=== PATIENT | female | born 1940 | race Caucasian/White ===

== ENCOUNTER 2018-11-28 11:32 | Emergency (ER) | payer MEDICARE, OTHER ==
[~2018-11-28] VITALS: Ht 154.9 cm; Wt 81.6 kg
[~2018-11-28 11:32] MED LIST: DELTASONE20 MG PO; NITROGLYCERIN0.4 MG SL; NORCO 5-325 TA1 EACH PO; PROTONIX40 MG PO; VENTOLIN HFA18 GM INH; ZITHROMAX250 MG PO
--- NOTE | 2018-11-28 18:53 | EKG ---
[facility] [address] [facility] [place] [address] Signed Normal sinus rhythm Nonspecific ST abnormality Abnormal ECG Confirmed by MAIA EVANGELISTA MD ([id number]) on 11/28/2018 6:52:55 PM Electronically Signed By: MAIA EVANGELISTA MD 11/28/18 1853 PATIENT NAME: NISH LAGOS [place] Electrocardiogram DATE OF : 44 PHYSICIAN: MAIA EVANGELISTA MD REPORT #: [id number] REPORT IS CONFIDENTIAL AND NOT TO BE RELEASED WITHOUT AUTHORIZATION
--- NOTE | 2018-11-28 18:54 | EKG ---
[facility] [address] [facility] [place] [address] Signed Normal sinus rhythm T wave abnormality, consider anterior ischemia , new compared to the EKG from 12:44 pm, 11/28/18. Abnormal ECG When compared with ECG of 28-NOV-2018 12:44, (Unconfirmed) No significant change was found Confirmed by MAIA EVANGELISTA MD ([id number]) on 11/28/2018 6:54:42 PM Electronically Signed By: MAIA EVANGELISTA MD 11/28/18 1854 PATIENT NAME: NISH LAGOS Electrocardiogram DATE OF : 44 PHYSICIAN: MAIA EVANGELISTA MD REPORT #: [id number] REPORT IS CONFIDENTIAL AND NOT TO BE RELEASED WITHOUT AUTHORIZATION
--- NOTE | 2018-11-28 18:54 | EKG ---
[facility] [address] [facility] [place] [address] Signed Normal sinus rhythm ST depression in Leads V2 and V3, more comparied to the EKG from 11:36 am. Prolonged QT Abnormal ECG When compared with ECG of 28-NOV-2018 11:36, (Unconfirmed) No significant change was found Confirmed by MAIA EVANGELISTA MD ([id number]) on 11/28/2018 6:53:58 PM Electronically Signed By: MAIA EVANGELISTA MD 11/28/18 1854 PATIENT NAME: NISH LAGOS [place] Electrocardiogram DATE OF : 44 PHYSICIAN: MAIA EVANGELISTA MD REPORT #: [id number] REPORT IS CONFIDENTIAL AND NOT TO BE RELEASED WITHOUT AUTHORIZATION
== END 2018-11-28 19:09 | disposition short-term general hospital (02) ==
LOC: ED 11:32
DX: I20.0 Unstable angina (principal)
CPT/HCPCS: 71045; 80053; 83735; 84484; 85025; 93005; 93010; 96374; 96375; 99285-25; J3010

== ENCOUNTER → 2018-12-06 | Emergency (ER) | payer MEDICARE, OTHER ==
[~2018-12-06] VITALS: Ht 154.9 cm; Wt 81.7 kg
[~2018-12-06] MED LIST changes: +ASPIR-LOW81 MG PO; +BRILINTA90 MG PO; +LIPITOR40 MG PO; +LISINOPRIL2.5 MG PO
--- OUTSIDE RECORDS SUMMARY | 2018-12-06 22:54 | XMS ---
PreManage Notification: NISH LAGOS Security [employer] Events No recent Security Events currently on file CRITERIA MET - [facility] - Visits in 30 Days CARE PROVIDERS ILA ESTEVEZ Primary Care 03/01/2012-Current PHONE: Unknown Other Current PHONE: Unknown Zhao has no Care Guidelines for this patient. Madi VISIT COUNT (12 MO.) [address] [place] [address] TOTAL 2 NOTE: Visits indicate total known visits. ED/UCC VISIT TRACKING (12 MO.) 12/06/2018 22:52 [facility] TYPE: Emergency COMPLAINT: - CHEST PAIN 11/28/2018 11:33 [facility] TYPE: Emergency COMPLAINT: - CHEST PAIN DIAGNOSES: - Other chest pain - Unstable angina INPATIENT VISIT TRACKING (12 MO.) 11/28/2018 20:12 Laura Landeros [facility] TYPE: Medical Surgical COMPLAINT: - CHEST PAIN DIAGNOSES: 0. Chest pain, unspecified 1. Atherosclerotic heart disease of [place] coronary artery with unstable angina pectoris 2. Unspecified asthma, uncomplicated 3. Hypothyroidism, unspecified [email or web address]
--- NOTE | 2018-12-07 12:24 | EKG ---
[facility] [address] [facility] [place] [address] Signed Accelerated Junctional rhythm with retrograde conduction Nonspecific ST abnormality Abnormal ECG When compared with ECG of 28-NOV-2018 18:28, Junctional rhythm has replaced Sinus rhythm T wave inversion no longer evident in Anterior leads Confirmed by USMAN PACHECO DO ([id number]) on 12/07/2018 12:24:16 PM Electronically Signed By: USMAN PACHECO DO 12/07/18 1224 PATIENT NAME: MADDISONCLIFFNISH Electrocardiogram DATE OF : 44 PHYSICIAN: USMAN PACHECO DO REPORT #: [id number] REPORT IS CONFIDENTIAL AND NOT TO BE RELEASED WITHOUT AUTHORIZATION
== END ==
LOC: ED 22:51
DX: I20.0 Unstable angina (principal); K92.2 Gastrointestinal hemorrhage, unspecified; I10 Essential (primary) hypertension; E03.9 Hypothyroidism, unspecified; Z95.5 Presence of coronary angioplasty implant and graft; Z79.82 Long term (current) use of aspirin; Z79.899 Other long term (current) drug therapy
CPT/HCPCS: 71045; 80053; 83735; 84484; 85025; 85379; 85610; 85730; 86850; 86900; 86901; 93005; 93010; 96374; 99285-25; C9113

== ENCOUNTER 2019-02-03 09:29 | Emergency (ER) | payer MEDICARE, OTHER ==
[~2019-02-03] VITALS: Ht 154.9 cm; Wt 81.7 kg
--- OUTSIDE RECORDS SUMMARY | ~2019-02-03 | XMS | Encounter Summary ---
Demographics + + + | Address | [address] | | | [place] [address] | + + + | Home Phone | | + + + | Preferred Language | Unknown | + + + | Marital Status | | + + + | Adventism Affiliation | [id number] | + + + | Race | Unknown | + + + | Ethnic Group | Unknown | + + + Author + + + | Author | [facility] | | | and [place] | + + + | Organization | [facility] | | | and [place] | + + + | Address | Unknown | + + + | Phone | Unavailable | + + + Support + + +---------+ + | Name | Relationship | Address | Phone | + + +---------+ + | AMADO ELMORE | ECON | Unknown | | + + +---------+ + | FLOR ELMORE | ECON | Unknown | | + + +---------+ + Care Team Providers + +------+ + | Care Dish Up Person Name | Role | Phone | + +------+ + | No, Physician | PCP | Unavailable | + +------+ + Reason for Referral Evaluate & Treat (Routine) + + + + + + + | Status | Reason | Specialty | Diagnoses / | Referred By | Referred To | | | | | Procedures | Contact | Contact | + + + + + + + | Pending | Specialty | Gastroenterol | Diagnoses | | Geldmacher, | | Review | Services | ogy | Sarah | Sumit, | Paul Baltazar MD | | | Required | | | Natacha Murdock MD | [address] | | | | | | [address] | [address] | | | | | | [address] | [facility], | | | | | | [place], [place] | [place] [address] | | | | | | [address] | Phone: | | | | | | Phone: | [phone] | | | | | | [phone] | Fax: | | | | | | Fax: | [phone] | | | | | | [phone] | | + + + + + + + Evaluate & Treat (Routine) + + + + + + + | Status | Reason | Specialty | Diagnoses / | Referred By | Referred To | | | | | Procedures | Contact | Contact | + + + + + + + | Pending | Specialty | Cardiology | Diagnoses | | Saab, | | Review | Services | | Chest pain, | Sumit, | DO Shilpa | | | Required | | unspecified | Natacha Murdock MD | [address] | | | | | type | [address] | [address] | | | | | Coronary | BLVD | [place], [place] | | | | | artery spasm | [place], [place] | [address] Phone: | | | | | (FORM[facility]LY [facility]) | [address] | [phone] | | | | | | Phone: | Fax: | | | | | | [phone] | [phone] | | | | | | Fax: | | | | | | | [phone] | | + + + + + + + Reason for Visit + + + | Reason | Comments | + + + | Chest Pain | | + + + Auth/Cert +--------+--------+ + + + + | Status | Reason | Specialty | Diagnoses / | Referred By | Referred To | | | | | Procedures | Contact | Contact | +--------+--------+ + + + + | | | | Diagnoses | | | | | | | Staceyena S/P | | | | | | | angioplasty | | | | | | | with stent | | | | | | | T wave | | | | | | | inversion in | | | | | | | EKG | | | | | | | Coronary | | | | | | | artery | | | | | | | disease | | | | | | | involving | | | | | | | seneca[place] | | | | | | | coronary | | | | | | | artery, | | | | | | | angina | | | | | | | presence | | | | | | | unspecified, | | | | | | | unspecified | | | | | | | whether | | | | | | | seneca-cay[place] or | | | | | | | transplanted | | | | | | | heart | | | | | | | Chest pain, | | | | | | | unspecified | | | | | | | type | | | | | | | | | | +--------+--------+ + + + + Encounter Details +--------+ + + + + | Date | Type | Department | Care Team | Description | +--------+ + + + + | 12/07/ | Hospital | [facility] | Diana Arenas, | Sarah (Primary Dx); | | 2019 - | Encounter | [facility] | DO [address] | Coronary artery | | | | CARE FLOOR [address] | [place] [address] | disease involving | | 12/11/ | | [address] | [phone] | seneca-cayuga coronary | | 2019 | | [place], [place] | | artery, angina | | | | [address] | Deena Chong MD | presence | | | | [phone] | [address] | unspecified, | | | | | [place] [address] | unspecified whether | | | | | [phone] | seneca-cayuga or | | | | | | transplanted heart; | | | | | Tc Garcia, | S/P angioplasty with | | | | | MD [address] | stent; Chest pain, | | | | | [place] [address] | unspecified type; T | | | | | [phone] | wave inversion in | | | | | | EKG; Upper GI bleed; | | | | | Natacha Arana S, | Coronary artery | | | | | MD [address] | spasm (HCC); | | | | | [place] [address] | Essential | | | | | [phone] | hypertension, | | | | | | benign; Sarah; | | | | | | Coronary artery | | | | | | disease involving | | | | | | seneca-cay[place] coronary | | | | | | artery, angina | | | | | | presence | | | | | | unspecified, | | | | | | unspecified whether | | | | | | seneca-cayuga or | | | | | | transplanted heart; | | | | | | CORONARY ARTERY | | | | | | SPASM | +--------+ + + + + Social History + +-------+ +--------+------+ | Tobacco Use | Types | Packs/Day | Years | Date | | | | | Used | | + +-------+ +--------+------+ | Never Smoker | | | | | + +-------+ +--------+------+ + +---+---+---+ | Smokeless Tobacco: | | | | | Never Used | | | | + +---+---+---+ + + +---------+ + | Alcohol Use | Drinks/We | oz/Week | Comments | | | ek | | | + + +---------+ + | Not Currently | | | | + + +---------+ + + + + | Sex Assigned at | Date Recorded | | | | + + + | Not on file | | + + + + + + + | Job Start Date | Occupation | Industry | + + + + | Not on file | Not on file | Not on file | + + + + + + + + | Travel History | Travel Start | Travel End | + + + + + + | No recent travel history available. | + + documented as of this encounter Last Filed Vital Signs + + + + | Vital Sign | Reading | Time Taken | + + + + | Blood Pressure | 114/58 | 12/11/2018748 PDT | + + + + | Pulse | 53 | 12/11/2018748 PDT | + + + + | Temperature | 36.4 C (97.6 F) | 12/11/2018748 PDT | + + + + | Respiratory Rate | 19 | 12/11/2018748 PDT | + + + + | Oxygen Saturation | 96% | 12/11/2018 0749 PDT | + + + + | Inhaled Oxygen | - | - | | Concentration | | | + + + + | Weight | 87 kg (191 lb 12.8 | 12/10/2018 0641 PDT | | | oz) | | + + + + | Height | 154.9 cm (5' 0.98") | 12/07/2018 1059 PDT | + + + + | Body Mass Index | 36.26 | 12/07/2018 1059 PDT | + + + + documented in this encounter Discharge Summaries Natacha Arana MD - 12/11/2018 1420 PDTFormatting of this note might be different festus barlow the original. Patient: Nish Elmore : 1940 Date of Admission: 12/07/2018 Date of Discharge: 12/11/2018 Treatment Team: Shilpa Saab DO; Kusum Castaneda MD Discharging Provider: Natacha Arana MD Discharge Diagnoses: Principal Problem: Chest pain Active Problems: Hypothyroidism Esophageal reflux Asthma HYPERTENSION, BENIGN ESSENTIAL Upper GI bleed Acute blood loss anemia Melena Coronary artery disease involving sen[place]-c[place] coronary artery, angina presence unspecified, un specified whether seneca-cay[place] or transplanted heart Resolved Problems: * No resolved hospital problems. * Procedures Performed: Procedure(s) (LRB): COLONOSCOPY W/ EGD (N/A) Chief Complaint: Chest Pain Hospital Course: The patient is a 78 y.o. female with significant past medical history of HTN, CAD, recent P CI with YOSHI to the proximal LAD presented to [facility] for chest pains. Patient was transferred to [facility] on 11/28/18 for unstable angina. She had a cardia c catheterization done on 11/29/18 with findings of 99% proximal LAD stenosis, RCA 50-60% in the proximal vessel and 90% posterior left ventricular branch. YOSHI was placed in the LAD. Rene blackwood was sent home on ASA 81mg and brillinta 90mg BID. The patient she was well for the first 3 days from discharge but after that she again start ed having chest disomfort usually mild ~ 4/10 in severity radiating to both arm and her neck , not associated with activity lasting for a few minutes then spontaneously goes away. These pains were similar to her previous chest pains but as they were mild she did not seek consu lt. 1 day prior to presentation she had again recurrence of her chest pain, which started ou t mild, but later in the day started to recur more frequent and more intense that she decide d to start taking SL nitro which did help with the pain. She had a total of4 dose. However l ast night the pain worsened that she finally decided to go to the [facility] ED for evalu ation Chest pain, possible related to myocardial ischemia, chest pain improved with titration of medical therapy per Cover Remover Dr. Saab, started Imdur, plan to follow as outpatient for p ossible angiography , as she still has residual 60% proximal RCA disease and 90% distal pos terior lateral branch disease Continue ASA, brillinta, unable to tolerate B anjali due to baseline bradycardia, contin ue lisinopril Dr. Saab advised to avoid angiogram in the setting of recent bleeding, and she will follo w closely outpatient after discharge for angiogram as patient has been chest pain free durin g hospital stay. Patient requested discharge home to follow with Dr. Saab GI bleeding melena prior to admission, she had black stool initially and H/H has dropped po ssible due to hemodilution in addition to blood loss Dr. Castaneda was consulted, had a plan to proceed with EGD/Colonoscpy, but her H/H has been stable and no further bleeding episodes. Discussed with cardiology and GI She was discharged on PPI for possible gatritis/PUD Referral for EGD/Colonoscopy out patient. Started oral iron. Outstanding Issues: Follow with Cardiology outpatient to arrange for PCI Discharge Exam and Data: Vital Signs: BP 114/58 | Pulse 53 | Temp 36.4 C (97.6 F) (Oral) | Resp 19 | Ht 1.549 m (5' 0.98" ) | Wt 87 kg (191 lb 12.8 oz) | SpO2 96% | BMI 36.26 kg/m Physical Exam Recent Labs Recent Labs Lab 12/11/18 0543 12/09/18 0515 WBC -- -- 4.78 HGB 9.6* < > 9.1* HCT 27.5* < > 26.3* PLT -- -- 177 < > = values in this interval not displayed. Recent Labs Lab 12/09/18 2225 NA 143 K 4.1 CL 111* CO2 20* BUN 17 CALCIUM 9.3 No results for input(s): INR in the last 168 hours. Recent Radiology Results No results found. Discharge Information:Follow up: Active Orders Diet Diet sodium; sodium restricted 2 gm; Effective Now Shilpa Saab, DO [address] [facility] [address] Schedule an appointment as soon as possible for a visit in 2 weeks Paul Hsieh MD [address] [facility] [address] Schedule an appointment as soon as possible for a visit in 4 weeks Discharge Medications New Medications Details ascorbic acid 500 MG tablet Take 1 tablet by mouth Daily. aka: VITAMIN C Start: 12/12/2018 docusate sodium 100 MG capsule Take 100 mg by mouth Twice daily as needed. aka: COLACE ferrous sulfate 325 mg tablet Take 1 tablet by mouth 2 times daily (with breakfast & dinner). isosorbide mononitrate 120 mg ER tablet Take 1 tablet by mouth Daily. aka: IMDUR Start: 12/12/2018 pantoprazole 40 mg tablet Take 1 tablet by mouth 2 times daily (before meals). For 1 weeks then once daily aka: PROTONIX Unchanged Medications Details atorvaSTATin 40 mg tablet take 1 tablet by mouth once daily aka: LIPITOR BRILINTA 90 mg tablet Generic drug: ticagrelor take 1 tablet by mouth twice a day lisinopril 2.5 MG tablet take 1 tablet by mouth once daily aka: PRINIVIL,ZESTRIL nitroglycerin 0.[address] 1 tablet under the tongue if needed every 5 minutes for capo... (REFER TO PRESCRIPTI ON NOTES). aka: NITROSTAT RA ASPIRIN EC 81 MG EC tablet Generic drug: aspirin take 1 tablet by mouth once daily . Disposition: home Condition: Stable Code Status: Full Code Discharge took 35 minutes, to include final examination, discussion of admission, and prepa ration of prescriptions, instructions for on-going care, follow-up and documentation of disc harge summary. Natacha Arana MD 14:20 12/11/2018 documented in this e ncounter Medications at Time of Discharge + + + +---------+ + + | Medication | Sig | Dispensed | Refills | Start | End Date | | | | | | Date | | + + + +---------+ + + | ascorbic acid | Take 1 tablet by | 30 | 3 | 12/13/19 | | | (VITAMIN C) 500 MG | mouth Daily. | tablet | | 19 | | | tablet | | | | | | + + + +---------+ + + | docusate sodium | Take 100 mg by mouth | 30 | 3 | 12/12/19 | | | (COLACE) 100 MG | Twice daily as | capsule | | 19 | | | capsule | needed. | | | | | + + + +---------+ + + | isosorbide | Take 1 tablet by | 30 | 3 | 12/13/19 | | | mononitrate (IMDUR) | mouth Daily. | tablet | | 19 | | | 120 mg ER tablet | | | | | | + + + +---------+ + + | atorvaSTATin | take 1 tablet by | | 0 | 12/01/19 | | | (LIPITOR) 40 mg | mouth once daily | | | 19 | 9 | | tablet | | | | | | + + + +---------+ + + | BRILINTA 90 MG | take 1 tablet by | | 0 | 12/01/19 | | | tablet | mouth twice a day | | | 19 | 9 | + + + +---------+ + + | ferrous sulfate | Take 1 tablet by | 30 | 3 | 12/12/19 | | | 325 mg tablet | mouth 2 times daily | tablet | | 19 | 9 | | | (with breakfast & | | | | | | | dinner). | | | | | + + + +---------+ + + | lisinopril | take 1 tablet by | | 0 | 12/01/19 | | | (PRINIVILZESTRIL) | mouth once daily | | | 19 | 9 | | 2.5 MG tablet | | | | | | + + + +---------+ + + | nitroglycerin | place 1 tablet under | | 0 | 12/01/19 | | | (NITROSTAT) 0.4 mg | the tongue if | | | 19 | 9 | | SL tablet | needed every 5 | | | | | | | minutes for capo... | | | | | | | (REFER TO | | | | | | | PRESCRIPTION NOTES). | | | | | + + + +---------+ + + | pantoprazole | Take 1 tablet by | 60 | 0 | 12/12/19 | | | (PROTONIX) 40 mg | mouth 2 times daily | tablet | | 19 | 9 | | tablet | (before meals). For | | | | | | | 1 weeks then once | | | | | | | daily | | | | | + + + +---------+ + + | RA ASPIRIN EC 81 | take 1 tablet by | | 0 | 12/01/19 | | | MG EC tablet | mouth once daily | | | 19 | 9 | + + + +---------+ + + documented as of this encounter Progress Notes Kusum Castaneda MD - 12/10/2018 1542 PDTFormatting of this note might be different f rom the original. [facility]ology Service Inpatient Consult Follow Up Note Hospital Day: LOS: 3 days Date of Visit: 12/10/2018 Primary Care Physician: No Physician on file Summary: As per Dr. Hsieh who saw patient on 12.07.2018: GI bleeding Coronary artery disease Angina with recent drug eluting stent placement - Patient with known CAD and new stent presents for evaluation of chest pain - Also having blood in stool which patient reports was bright red and then became dark - No abdominal pain - Hgb above 11 g/dL - All else being equal, would benefit from endoscopy - However, has elevated procedural risk because of cardiac status, active chest pain, and continued use of both brilinta and ASA. She has to continue both agents because of new YOSHI. - Risk of scope currently outweighs potential benefit - Given her current clinical status along with mild drop in Hgb, recommend medical managem ent and monitoring for now - Agree with current management Events since yesterday: Patient was scheduled for EGD and colonoscopy. Dr. Taylor call me that patient was hav ing chest pain and hemoglobin was stable. Dr. Taylor and discussed with cardiology as well. Therefore, it would be best to hold off EGD and colonoscopy. Patient had chest pain last night when she was taking GoLYTELY per patient. Initially she had black stool in that stool. The stool cleared with the GoLYTELY preparation. At this time patient denies any chest pain, nausea, vomiting, hematemesis, melena, abdomina l pain. Patient would like to have EGD and colonoscopy as an outpatient basis. I have disc ussed this also with the patient's nurse and Dr. Taylor, hospitalist. Apparently patien t has not had any new EKG changes and there is no plan for repeat cardiac cath. REVIEW OF SYSTEMS No chest pain. See HPI. All other systems were reviewed and are negative except as noted anywhere else in the chart . Prior to Admission medications Medication Sig atorvaSTATin (LIPITOR) 40 mg tablet take 1 tablet by mouth once daily BRILINTA 90 MG tablet take 1 tablet by mouth twice a day lisinopril (PRINIVIL,ZESTRIL) 2.5 MG tablet take 1 tablet by mouth once daily nitroglycerin (NITROSTAT) 0.[address] 1 tablet under the tongue if needed every 5 minutes for capo... (REFER TO PRESCRIPTION NOTES). RA ASPIRIN EC 81 MG EC tablet take 1 tablet by mouth once daily Current Facility-Administered Medications Medication Dose Route Frequency Provider Last Rate Last Dose acetaminophen (TYLENOL) tablet 650 mg 650 mg Oral Q4H PRN Colby Sanchez MD 6 50 mg at 12/09/18 0346 ascorbic acid (VITAMIN C) tablet 500 mg 500 mg Oral Daily Natacha Arana MD aspirin EC tablet 81 mg 81 mg Oral Daily Deena Chong MD 81 mg at 12/10/18 1012 atorvaSTATin (LIPITOR) tablet 80 mg 80 mg Oral Nightly Deena Chong MD 80 mg at 01/17 2301 docusate sodium (COLACE) capsule 100 mg 100 mg Oral BID PRN Natacha Arana MD ferrous sulfate tablet 325 mg 325 mg Oral BID Natacha Arana MD isosorbide mononitrate ER tablet 120 mg 120 mg Oral Daily Shilpa Saab DO 120 mg at 12/10/18 1011 lisinopril (PRINIVIL, ZESTRIL) tablet 2.5 mg 2.5 mg Oral Daily Deena Chong MD 2.5 mg at 12/10/18 1011 melatonin tablet 3 mg 3 mg Oral Nightly Deena Chong MD 3 mg at 12/09/18 2302 morphine injection 2-6 mg 2-6 mg Intravenous Q2H PRN Deena Chong MD 2 mg at 0854 nitroglycerin (NITROSTAT) SL tablet 0.4 mg 0.4 mg Sublingual Q5 Min PRN Deena Chong MD 0.4 mg at 12/09/18 2256 ondansetron (ZOFRAN ODT) disintegrating tablet 4 mg 4 mg Oral Q6H PRN Deena Chong MD Or ondansetron (ZOFRAN) injection 4 mg 4 mg Intravenous Q6H PRN Deena Chong MD pantoprazole (PROTONIX) injection 40 mg 40 mg Intravenous BID Deena Chong MD 40 mg at 12/10/18 1012 ticagrelor (BRILINTA) tablet 90 mg 90 mg Oral BID Deena Chong MD 90 mg at 12/10/18 1011 Social History Tobacco Use Smoking Status Never Smoker Smokeless Tobacco Never Used Social History Substance and Sexual Activity Alcohol Use Not Currently Social History Substance and Sexual Activity Drug Use Not on file Scheduled Medications ascorbic acid, aspirin, atorvaSTATin, ferrous sulfate, isosorbide mon onitrate, lisinopril, melatonin, pantoprazole, ticagrelor Continuous Infusions PRN Medications acetaminophen, docusate sodium, morphine, nitroglycerin, ondansetron OR ondansetron PHYSICAL EXAM Vital Signs: BP 107/52 | Pulse 63 | Temp 36.9 C (98.5 F) (Oral) | Resp 16 | Ht 1.549 m (5' 0.98" ) | Wt 87 kg (191 lb 12.8 oz) | SpO2 95% | BMI 36.26 kg/m Moderately built and nourished In no acute physical distress Constitutional: Appears to be of the stated age. HEENT: Normocephalic, no jaundice Neck: Supple Chest: No telangectasias Abdomen / GI: Obese abdomen. This limits abdominal examination. No tense ascites. Soft, Non-tender, No gross hepato-splenomegaly, no gross ascites, Peacock's sign negative, M cBurney's sign negative, no peritoneal signs, no point or rebound tenderness Extremities/Musculoskeletal: Trace leg edema Neuro: No overt encephalopathy Skin: No jaundice Psychiatric: Normal affect DATA Hemoglobin 9.1 down from 11.2 yesterday. Platelet count 177K, MCV 94. Bili, AST, ALT norm al. Recent Labs Lab 12/10/18 0809 12/09/18 2225 12/09/18 2037 12/09/18 0515 12/08/18 0319 12/07/18 0426 WBC -- -- -- 4.78 -- -- 6.85 HGB 10.5* -- 10.3* 9.1* 11.2* < > 12.0 HCT 30.3* -- 29.4* 26.3* 32.7* < > 34.4 MCV -- -- -- 94.0 -- -- 90.3 PLT -- -- -- 177 -- -- 206 NA -- 143 -- 141 142 -- 142 K -- 4.1 -- 4.2 4.4 -- 4.3 CL -- 111* -- 113* 112* -- 112* CO2 -- 20* -- 22* 22* -- 21* BUN -- 17 -- 21 22 -- 13 EGFR -- 54* -- 54* 48* -- >60 CALCIUM -- 9.3 -- 8.3* 8.0* -- 8.9 ANIONGAP -- 16 -- 10 12 -- 13 PHOS -- -- -- 3.0 -- -- -- MG -- 2.1 -- 2.0 2.0 -- -- BILI -- -- -- -- -- -- 1.1 AST -- -- -- -- -- -- 24 ALT -- -- -- -- -- -- 22 < > = values in this interval not displayed. Lab Results Component Value Date IRON 32 12/10/2018 Lab Results Component Value Date IRON 32 12/10/2018 TIBC 338 12/10/2018 Lab Results Component Value Date FERRITIN 29 12/10/2018 MG 2.1 12/09/2018 MG 2.0 12/09/2018 MG 2.0 12/08/2018 TSH 6.780 (H) 12/09/2018 Lab Results Component Value Date MONOABS 0.46 12/07/2018 IMAGING: No results found for this or any previous visit (from the past 72 hour(s)). No results found. PROBLEM LIST: ASSESSMENT & PLAN Patient has normocytic anemia with recent melena. She also has history of chest pain, GE r eflux. She has been on aspirin and Brilinta. Last colonoscopy 10 years ago. Previous colo noscopy report not available. Because of recent drug-eluting stent placement patient canno t come off aspirin and Brilinta. She may have reflux esophagitis, pill-induced esophagitis, gastric ulcer duodenal ulcer. I do not think she has varices. She may have slow bleeding from small intestine or colon. I t is best to do EGD and colonoscopy together rather than doing separately so that we do not have to sedate the patient twice. Patient's hemoglobin has been stable. She has been having chest pain. Hospitalist service and cardiology would like patient to be more stable from cardiac standpoint of view. EGD a nd colonoscopy has been canceled until cardiac issues have been resolved. Chest pain resolved. Plan: Discussed plan with patient, patient's nurse and Dr. Taylor. Will reschedule EGD and colonoscopy once patient is more stable from cardiac standpoint vie w. Keep Protonix 40 mg p.o. twice daily Thank you for allowing me to participate in the care of this patient. 12/10/2018 Portions of this chart may have been copied from previous notes for continuity of care purp ose Portions of this chart may have been created with [email or web address] voice recognition software. Occasi onal wrong-word or sound-alike substitutions may have occurred due to the inherent mason itations of voice recognition software. Please read the chart carefully and recognize, using context, where these substitutions have occurred. Natacha Evans MD - 12/10/2018 1310 PDT [facility] Service: Hospitalist Progress Note Pt: Nish Elmore AGE/SEX: 78 y.o. female ROOM: [id number]- : 1940 PCP: No Physician on file ADMIT DATE: 12/07/2018 TODAY'S DATE: 12/10/2018 Hospital Day/Hospital Course: LOS: 3 days Patient Summary: 78 y/o F with past medical history HTN, CAD, recent PCI with YOSHI to the proximal LAD in tr ios on November 28, 2018, with residual 60% stenosis of RCA and 90% stenosis of PL branch, on aspirin 81 mg and Brilinta 90 mg twice daily, hypothyroidism , asthma mild intermittent, wh o presented with chest pain radiating to both arms and neck associated with exertion similar to prior chest pain taking sublingual nitro at home for doses did not help. She also compl ained of bright red blood per rectum in the last 3 days later on became black tarry stools. Last colonoscopy 10 years ago significant for finding of hemorrhoids. She came to [facility] emergency room. Initial troponin negative. EKG no acute ischemic change. Due to c omplex case patient was transferred to [facility]. Cardiology and gastroenterology consulted. Wh richard she got transferred here initial EKG showed T wave inversions in the anterior leads. Tro ponins negative x2. Due to recent stent placement patient was continued on aspirin and Bril inta, Imdur 60 mg added for chest pain. Unable to give beta-anjali due to resting bradycar audrey. Echocardiogram is ordered.Gastroenterology agreed with continuation of Brilinta and as pirin. No blood transfusion was necessary. Risk of pursuing endoscopy currently outweighs benefit hence we are currently conservatively treating and closely monitoring patie SUBJECTIVE: Patient seen and examine. Complaint of generalized weakness, she had an episode of chest pa in last night and received Nitro that improved her symptoms, no chest pain this morning, no bleeding since yesterday. Scheduled Medications: aspirin 81 mg Oral Daily atorvaSTATin 80 mg Oral Nightly isosorbide mononitrate 120 mg Oral Daily lisinopril 2.5 mg Oral Daily melatonin 3 mg Oral Nightly pantoprazole 40 mg Intravenous BID ticagrelor 90 mg Oral BID Continuous Infusions PRN Medications acetaminophen, morphine, nitroglycerin, ondansetron OR ondansetron Allergy: No Known Allergies OBJECTIVE: Vitals: Temp: [36.4 C (97.5 F)] 36.4 C (97.5 F) Pulse: [57-68] 57 Resp: [14-20] 19 BP: (136-169)/(59-72) 143/63 I&O Detailed Table: Intake/Output Summary (Last 24 hours) at 12/10/2018 1315 Last data filed at 12/09/2018 1821 Gross per 24 hour Intake Output 750 ml Net -750 ml Patient Vitals for the past 96 hrs: Weight 12/10/18 0641 87 kg (191 lb 12.8 oz) 12/08/18 2318 87.2 kg (192 lb 3.2 oz) 12/08/18 0334 85.2 kg (187 lb 13.3 oz) 12/07/18 1059 85.4 kg (188 lb 4.4 oz) 12/07/18 0435 81.6 kg (180 lb) Physical Examination: Constitutional: Alert and oriented to person, place, and time. HEENT: Neck supple, no JVD, non icteric sclera. Pallor is present. Cardiovascular: Normal rate, regular rhythm, normal heart sounds with S1 and S2, and intact distal pulses. Exam reveals no gallop and no friction rub. No murmur heard. Pulmonary/Chest: Effort normal and breath sounds normal. No stridor. No respiratory distres s. no wheezes. no rales. exhibits no tenderness. Abdominal: Soft. Bowel sounds are normal. exhibits no distension and no mass. There is no t enderness. There is no rebound and no guarding. Extremeties/Musculoskeletal: Normal range of motion.exhibits no tenderness. exhibits no ed mony. Normal equal peripheral pulses. Neurological: Alert and oriented to person, place, and time. No cranial nerve deficit. E xhibits normal muscle tone. No gross motor deficits. Skin: Skin is warm. No pallor. Patient has normal capillary refill, no mottling. Psychiatric: Has a normal mood and affect. Behavior is normal. Judgment normal. LABS: Recent Labs Lab 12/10/1880812/09/18203612/09/1851412/07/18425 WBC -- -- 4.78 -- 6.85 HGB 10.5* 10.3* 9.1* < > 12.0 HCT 30.3* 29.4* 26.3* < > 34.4 PLT -- -- 177 -- 206 MONOPCT -- -- -- -- 6.64 < > = values in this interval not displayed. Recent Labs Lab 12/09/18222412/09/1851412/08/1831812/07/18425 NA 143 141 142 142 K 4.1 4.2 4.4 4.3 CL 111* 113* 112* 112* CO2 20* 22* 22* 21* BUN 17 21 22 13 CALCIUM 9.3 8.3* 8.0* 8.9 ALKPHOS -- -- -- 97 ALT -- -- -- 22 AST -- -- -- 24 Phosphorus: Lab Results Component Value Date PHOS 3.0 12/09/2018 No results for input(s): LABALBU in the last 168 hours. Recent Labs Lab 09/10/19 2225 09/10/19 0515 09/09/19 0319 MG 2.1 2.0 2.0 No results for input(s): AMYLASE in the last 168 hours. No results for input(s): PHART, PO2ART, UTA8NHC, T6WMELYV, BEART in the last 168 hours. No results for input(s): APTT, INR, PTT in the last 168 hours. Recent Labs Lab 12/09/18 0515 TSH 6.780* Recent Labs Lab 12/08/18 0318 12/07/18 1925 12/07/18 1425 TROPONINT 0.082* 0.081* 0.054* i PROBLEM LIST Principal Problem: Chest pain Active Problems: Hypothyroidism Esophageal reflux Asthma HYPERTENSION, BENIGN ESSENTIAL Upper GI bleed Acute blood loss anemia Melena Coronary artery disease involving [place] coronary artery, angina presence unspecified, un specified whether [place] or transplanted heart ASSESSMENT & PLAN 1. Chest pain, resolved, Continue ASA, brillinta, unable to tolerate B anjali due to basel ine bradycardia, imdur was added by Cardiology, continue lisinopril Cardiology following discussed with Dr. Saab, as petient had chest pain, will optimize her therapy, and her H/H has been stable without further drop, discussed with GI, w ill await further stabilization from cardiac stand point prior to proceeding with EGD/Colono scopy, will monitor for bleeding. 2. Acute blood loss anemia, recent rectal bleeding/melena, Dr. Castaneda was consulted, will proceed with EGD/Colonoscpy if she had recurrence of bleeding or signficant drop in H/H, ho ld for now. Continue PPI Bid, monitor H/H for need of blood transfusion, to keep HGB 9-10 starting iron oraly, iron/feritin is low normal 3. RICKEY, post cardiac cath 11/28/18 Trios, improved, will d/c IVF 4.Mild intermittent Asthma 5. Hypertension, continue lisinopril, isosorbide mononitrate Unable to tolerate B anjali due to bradycardia 6. DVT prophylaxis: SCDs Given concern for GI bleed Natacha Arana MD 12/10/2018 13:15 Shilpa Finney DO - 12/10/2018 0633 PDT [facility] Service: Cardiology Progress Note Hospital Day: LOS: 3 days Post-Op Day: * No surgery found * SUBJECTIVE Patient Summary: The patient is a 78-year-old female who presents with chest discomfo rt. She was recently seen at [facility] where she underwent coronary angiography and drug-elutin g stent placement to her proximal LAD on 11/28/2018 she was noted to have residual 60% proxim al RCA disease and 90% distal posterior lateral branch disease. She was sent home on dual a ntiplatelet therapy with aspirin and Brilinta both of which she reports that she has been co mpliant with. She has had increasing chest pain since she was discharged. She has also had new onset bloody stools which turned into dark tarry stools, her Hb/HCT was normal on prese ntation. Presenting EKG demonstrates anterior ST-T wave changes. Her troponins have been n egative. Unfortunately, in the setting of GI bleeding, will need to closely weigh the risks and benefits of repeat coronary angiography. She may be having residual ischemia from her residual disease of the posterior lateral branch. Would suspect a more acute presentation i f she had acute in-stent thrombosis of her prox LAD stent, though this is a consideration. A t this time, we will plan to uptitrate her antianginal therapy with to try to get her chest pain-free. She had an echocardiogram done on 12/07/2018 which demonstrated normal left ventri cular ejection fraction and normal wall motion. Events Overnight: She was noted to have a drop in her H/H yesterday. Plans for EGD and colonoscopy today. She had one very mild episode of CT yesterday but none overnight. Scheduled Medications aspirin 81 mg Oral Daily atorvaSTATin 80 mg Oral Nightly isosorbide mononitrate 120 mg Oral Daily lisinopril 2.5 mg Oral Daily melatonin 3 mg Oral Nightly pantoprazole 40 mg Intravenous BID ticagrelor 90 mg Oral BID Continuous Infusions PRN Medications acetaminophen, morphine, nitroglycerin, ondansetron OR ondansetron OBJECTIVE Vital Signs: BP 136/62 | Pulse 68 | Temp 36.4 C (97.5 F) (Oral) | Resp 20 | Ht 1.549 m (5' 0.98" ) | Wt 87.2 kg (192 lb 3.2 oz) | SpO2 94% | BMI 36.33 kg/m Intake/Output Summary (Last 24 hours) at 12/10/2018 0633 Last data filed at 12/09/2018 1821 Gross per 24 hour Intake 440 ml Output 1450 ml Net -1010 ml EXAM Constitutional: Well-developed. Neck: No JVD present. No thyromegaly present. Cardiovascular: Regular rhythm, S1 normal and S2 normal. No murmur heard. Pulses: Radial pulses are 2+ on the right side, and 2+ on the left side. Pulmonary/Chest: Effort normal and breath sounds normal. No wheezes. No rales. Abdominal: Soft. No tenderness. Musculoskeletal: No edema. Neurological: Alert. No cranial nerve deficit. Skin: Warm and dry. DATA CBC: Lab Results Component Value Date WBC 4.78 12/09/2018 RBC 2.80 (L) 12/09/2018 HGB 10.3 (L) 12/09/2018 HCT 29.4 (L) 12/09/2018 MCV 94.0 12/09/2018 MCH 32.5 12/09/2018 MCHC 34.6 12/09/2018 PLT 177 12/09/2018 MPV 9.4 12/09/2018 DIFFTYPE AUTOMATED 12/07/2018 CMP: Lab Results Component Value Date NA 143 12/09/2018 K 4.1 12/09/2018 CL 111 (H) 12/09/2018 CO2 20 (L) 12/09/2018 ANIONGAP 16 12/09/2018 BUN 17 12/09/2018 AGRATIO 1.8 12/07/2018 AST 24 12/07/2018 ALT 22 12/07/2018 EGFR 54 (L) 12/09/2018 CPK: No components found for: CKTOTAL Troponin I: No components found for: TROPONINI TSH: Lab Results Component Value Date TSH 6.780 (H) 12/09/2018 No results found for: BNP ASSESSMENT & PLAN 1. Chest pain 2. CAD with recent PCI to LAD 3. GI bleed 4. HTN 5. Hypothyroidism 6. Asthma - The patient is a 78-year-old female who presents with chest discomfort. She was recentl y seen at [facility] where she underwent coronary angiography and drug-eluting stent placement to her proximal LAD on 11/28/2018 she was noted to have residual 60% proximal RCA disease and 9 0% distal posterior lateral branch disease. She was sent home on dual antiplatelet therapy with aspirin and Brilinta both of which she reports that she has been compliant with. She h as had increasing chest pain since she was discharged. She has also had new onset bloody st ools which turned into dark tarry stools, her Hb/HCT was normal on presentation. Presenting EKG demonstrates anterior ST-T wave changes. Her troponins have been negative. Unfortunayuki bustillos, in the setting of GI bleeding, will need to closely weigh the risks and benefits of rep eat coronary angiography. She may be having ischemia from her residual disease of the poste rior lateral branch. Would suspect a more acute presentation if she had acute in-stent thro mbosis of her prox LAD stent, though this is a consideration. At this time, we will plan to uptitrate her antianginal therapy with to try to get her chest pain-free. She should be cont inued on DAPT given her recent stents. She had an echocardiogram done on 12/07/2018 which demo nstrated normal left ventricular ejection fraction and normal wall motion. She has been capo st pain-free since increasing her Imdur to 120 mg by mouth daily. She was noted to have a d rop in her hemoglobin and hematocrit yesterday. Plans for colonoscopy and endoscopy today. -Continue aspirin 81 mg by mouth daily, Brilinta 90 mg by mouth twice daily -Continue Imdur to 120 mg by mouth daily -Continue atorvastatin 80 mg by mouth daily -Beta-anjali held due to resting bradycardia -Continue lisinopril 2.5 mg by mouth daily -Will continue to follow Code Status: Full Code Shilpa Saab DO udave, Myrtle Malone, RN - 12/09/2018 2216 PDTPatient reporting numbness around the mouth and across the forehead. Patient stated that she feels "weird" . Patient also states feeling dizzy. Dr Yesica Roberts MD ordered a BMP and Mg level . Patient also reporting "chest pressure". DR. Robert consulted. Per give one dose of nitro . Nitro given x1. Dr Robert evaluated patient at bedside . Patient reported a resolution of symptoms including chest pressure, face numbness and dizzi ness. BMP and Mg results were reported to . No new orders. Will continue to monitor Myrtle Wall, RN Electronically signed by Myrtle Wall RN at 019 8:38 Sindhu-Natacha Bledsoe MD - 12/09/2018 8623 PDTFormatting of this note might be d ifferent from the original. [facility] Service: Hospitalist Progress Note Pt: Nish Elmore AGE/SEX: 78 y.o. female ROOM: 7122/7122-01 : 1940 PCP: No Physician on file ADMIT DATE: 12/07/2018 TODAY'S DATE: 12/09/2018 Hospital Day/Hospital Course: LOS: 2 days Patient Summary: 78 y/o F with past medical history HTN, CAD, recent PCI with YOSHI to the proximal LAD in tr ios on November 28, 2018, with residual 60% stenosis of RCA and 90% stenosis of PL branch, on aspirin 81 mg and Brilinta 90 mg twice daily, hypothyroidism , asthma mild intermittent, wh o presented with chest pain radiating to both arms and neck associated with exertion similar to prior chest pain taking sublingual nitro at home for doses did not help. She also compl ained of bright red blood per rectum in the last 3 days later on became black tarry stools. Last colonoscopy 10 years ago significant for finding of hemorrhoids. She came to [facility] emergency room. Initial troponin negative. EKG no acute ischemic change. Due to c omplex case patient was transferred to [facility]. Cardiology and gastroenterology consulted. Wh en she got transferred here initial EKG showed T wave inversions in the anterior leads. Tro ponins negative x2. Due to recent stent placement patient was continued on aspirin and Bril inta, Imdur 60 mg added for chest pain. Unable to give beta-anjali due to resting bradycar audrey. Echocardiogram is ordered.Gastroenterology agreed with continuation of Brilinta and as pirin. No blood transfusion was necessary. Risk of pursuing endoscopy currently outweighs benefit hence we are currently conservatively treating and closely monitoring patie SUBJECTIVE: Patient seen and examine. Complaint of generalized weakness, she is pale this morning, she had no bowel movement, but she had bleeding per rectum and Melena prior to admission. No chest pain or shortness of breath. Scheduled Medications: aspirin 81 mg Oral Daily atorvaSTATin 80 mg Oral Nightly isosorbide mononitrate 120 mg Oral Daily lisinopril 2.5 mg Oral Daily melatonin 3 mg Oral Nightly pantoprazole 40 mg Intravenous BID polyethylene glycol 2,000 mL Oral Once Followed by polyethylene glycol 2,000 mL Oral Once ticagrelor 90 mg Oral BID Continuous Infusions sodium chloride 0.9% 100 mL/hr at 12/09/18 0110 PRN Medications acetaminophen, morphine, nitroglycerin, ondansetron OR ondansetron Allergy: No Known Allergies OBJECTIVE: Vitals: Temp: [36.3 C (97.4 F)-37.1 C (98.7 F)] 36.3 C (97.4 F) Pulse: [55-66] 55 Resp: [16-18] 18 BP: (105-128)/(52-62) 128/62 I&O Detailed Table: Intake/Output Summary (Last 24 hours) at 12/09/2018 1739 Last data filed at 12/09/2018 1737 Gross per 24 hour Intake 2755 ml Output 2000 ml Net 755 ml Patient Vitals for the past 96 hrs: Weight 12/08/18 2318 87.2 kg (192 lb 3.2 oz) 12/08/18 0334 85.2 kg (187 lb 13.3 oz) 12/07/18 1059 85.4 kg (188 lb 4.4 oz) 12/07/18 0435 81.6 kg (180 lb) Physical Examination: Constitutional: Alert and oriented to person, place, and time. HEENT: Neck supple, no JVD, non icteric sclera. Pallor is present. Cardiovascular: Normal rate, regular rhythm, normal heart sounds with S1 and S2, and intact distal pulses. Exam reveals no gallop and no friction rub. No murmur heard. Pulmonary/Chest: Effort normal and breath sounds normal. No stridor. No respiratory distres s. no wheezes. no rales. exhibits no tenderness. Abdominal: Soft. Bowel sounds are normal. exhibits no distension and no mass. There is no t enderness. There is no rebound and no guarding. Extremeties/Musculoskeletal: Normal range of motion.exhibits no tenderness. exhibits no ed mony. Normal equal peripheral pulses. Neurological: Alert and oriented to person, place, and time. No cranial nerve deficit. E xhibits normal muscle tone. No gross motor deficits. Skin: Skin is warm. No pallor. Patient has normal capillary refill, no mottling. Psychiatric: Has a normal mood and affect. Behavior is normal. Judgment normal. LABS: Recent Labs Lab 12/09/1851412/08/1831812/07/18192412/07/186 WBC 4.78 -- -- -- 6.85 HGB 9.1* 11.2* 10.7* < > 12.0 HCT 26.3* 32.7* 30.2* < > 34.4 PLT 177 -- -- -- 206 MONOPCT -- -- -- -- 6.64 < > = values in this interval not displayed. Recent Labs Lab 12/09/1851412/08/1831812/07/18425 NA 141 142 142 K 4.2 4.4 4.3 CL 113* 112* 112* CO2 22* 22* 21* BUN 21 22 13 CALCIUM 8.3* 8.0* 8.9 ALKPHOS -- -- 97 ALT -- -- 22 AST -- -- 24 Phosphorus: Lab Results Component Value Date PHOS 3.0 12/09/2018 No results for input(s): LABALBU in the last 168 hours. Recent Labs Lab 12/09/1851412/08/18318 MG 2.0 2.0 No results for input(s): AMYLASE in the last 168 hours. No results for input(s): PHART, PO2ART, BUI9JEX, P8OCYIMS, BEART in the last 168 hours. No results for input(s): APTT, INR, PTT in the last 168 hours. Recent Labs Lab 12/09/18514 TSH 6.780* Recent Labs Lab 12/08/1831712/07/18192412/07/18 1425 TROPONINT 0.082* 0.081* 0.054* i PROBLEM LIST Principal Problem: Chest pain Active Problems: Hypothyroidism Esophageal reflux Asthma HYPERTENSION, BENIGN ESSENTIAL Upper GI bleed ASSESSMENT & PLAN 1. Chest pain, resolved, Continue ASA, brillinta, unable to tolerate B anjali due to basel ine bradycardia, imdur was added by Cardiology, continue lisinopril Cardiology following discussed with Dr. Saab, it is ok from cardiology stand p oint to proceed for GI endoscopy to evaluate for ongoing bleeding. 2. Acute blood loss anemia, recent rectal bleeding/melena, Dr. Castaneda was consulted, will proceed with EGD/Colonoscpy tomorrow, Continue PPI Bid, monitor H/H for need of blood trans fusion, to keep HGB 9-10 3. RICKEY, post cardiac cath 11/28/18 Trios, improved, will d/c IVF Hypothyroidism 4.Mild intermittent Asthma 5. Hypertension, continue lisinopril, isosorbide mononitrate Unable to tolerate B anjali due to bradycardia 6. DVT prophylaxis: SCDs Given concern for GI bleed Natacha Arana MD 12/09/2018 17:39 Kusum Holm MD - 12/09/2018 1600 PDT [facility] Gastroenterology Service Inpatient Consult Follow Up Note Hospital Day: LOS: 2 days Date of Visit: 12/09/2018 Primary Care Physician: No Physician on file Summary: As per Dr. Hsieh who saw patient on 12.07.2018: GI bleeding Coronary artery disease Angina with recent drug eluting stent placement - Patient with known CAD and new stent presents for evaluation of chest pain - Also having blood in stool which patient reports was bright red and then became dark - No abdominal pain - Hgb above 11 g/dL - All else being equal, would benefit from endoscopy - However, has elevated procedural risk because of cardiac status, active chest pain, and continued use of both brilinta and ASA. She has to continue both agents because of new YOSHI. - Risk of scope currently outweighs potential benefit - Given her current clinical status along with mild drop in Hgb, recommend medical managem ent and monitoring for now - Agree with current management Events over the last day: Dr. Taylor called me to see this patient again who had fall i n hemoglobin by 2 points in 1 day. Patient is status post recent coronary artery stents. P atient is on Brilinta and aspirin. Cream Separator Operator: Angelique ZAVALETA Patient has not had any black stools or red stools for the last 2 days. Her hemoglobin has fallen by about 2 points over 1 day. She had a colonoscopy 10 years ago. She never had EG D. She recently had melena. She denies nausea, vomiting, hematemesis, rectal bleeding or f urther melena. She denies personal or family history of cancers of esophagus, stomach, small intestine, co brea, liver, gallbladder or pancreas. She had one stent placed on November 28 per patient. REVIEW OF SYSTEMS No chest pain. See HPI. All other systems were reviewed and are negative except as noted anywhere else in the chart . Prior to Admission medications Medication Sig atorvaSTATin (LIPITOR) 40 mg tablet take 1 tablet by mouth once daily BRILINTA 90 MG tablet take 1 tablet by mouth twice a day lisinopril (PRINIVIL,ZESTRIL) 2.5 MG tablet take 1 tablet by mouth once daily nitroglycerin (NITROSTAT) 0.[address] 1 tablet under the tongue if needed every 5 minutes for capo... (REFER TO PRESCRIPTION NOTES). RA ASPIRIN EC 81 MG EC tablet take 1 tablet by mouth once daily Current Facility-Administered Medications Medication Dose Route Frequency Provider Last Rate Last Dose acetaminophen (TYLENOL) tablet 650 mg 650 mg Oral Q4H PRN Colby Eugene Sanchez MD 6 50 mg at 12/09/18 0346 aspirin EC tablet 81 mg 81 mg Oral Daily Deena Chong MD 81 mg at 12/09/18 09 atorvaSTATin (LIPITOR) tablet 80 mg 80 mg Oral Nightly Deena Chong MD 80 mg at 12/18 isosorbide mononitrate ER tablet 120 mg 120 mg Oral Daily Shilpa Saab DO 120 mg at 12/09/18 09 lisinopril (PRINIVIL, ZESTRIL) tablet 2.5 mg 2.5 mg Oral Daily Deena Chong MD 2.5 mg at 12/09/18 09 melatonin tablet 3 mg 3 mg Oral Nightly Deena Chong MD 3 mg at 12/08/182056 morphine injection 2-6 mg 2-6 mg Intravenous Q2H PRN Deena Chong MD 2 mg at 0854 nitroglycerin (NITROSTAT) SL tablet 0.4 mg 0.4 mg Sublingual Q5 Min PRN Deena Chong MD ondansetron (ZOFRAN ODT) disintegrating tablet 4 mg 4 mg Oral Q6H PRN Deena Chong MD Or ondansetron (ZOFRAN) injection 4 mg 4 mg Intravenous Q6H PRN Deena Chong MD pantoprazole (PROTONIX) injection 40 mg 40 mg Intravenous BID Deena Chong MD 40 mg at 12/09/18906 sodium chloride 0.9% (NS) infusion Intravenous Continuous Tc Garcia MD 100 mL /hr at 12/09/18 011 ticagrelor (BRILINTA) tablet 90 mg 90 mg Oral BID Deena Chong MD 90 mg at 12/09/18 09 Social History Tobacco Use Smoking Status Never Smoker Smokeless Tobacco Never Used Social History Substance and Sexual Activity Alcohol Use Not Currently Social History Substance and Sexual Activity Drug Use Not on file Scheduled Medications aspirin, atorvaSTATin, isosorbide mononitrate, lisinopril, melatonin, pantoprazole, ticagrelor Continuous Infusions sodium chloride 0.9% 100 mL/hr at 12/09/18 0110 PRN Medications acetaminophen, morphine, nitroglycerin, ondansetron OR ondansetron PHYSICAL EXAM Vital Signs: BP 128/62 | Pulse 55 | Temp 36.3 C (97.4 F) (Oral) | Resp 18 | Ht 1.549 m (5' 0.98" ) | Wt 87.2 kg (192 lb 3.2 oz) | SpO2 96% | BMI 36.33 kg/m Moderately built and nourished In no acute physical distress Constitutional: Appears to be of the stated age. HEENT: Normocephalic, no jaundice Neck: Supple Chest: No telangectasias Abdomen / GI: Obese abdomen. This limits abdominal examination. No tense ascites. Soft, Non-tender, No gross hepato-splenomegaly, no gross ascites, Peacock's sign negative, M cBurney's sign negative, no peritoneal signs, no point or rebound tenderness Extremities/Musculoskeletal: Trace leg edema Neuro: No overt encephalopathy Skin: No jaundice Psychiatric: Normal affect DATA Hemoglobin 9.1 down from 11.2 yesterday. Platelet count 177K, MCV 94. Bili, AST, ALT norm al. Recent Labs Lab 12/09/18 0515 12/08/18 0319 12/07/18 1925 12/07/18 0426 WBC 4.78 -- -- -- 6.85 HGB 9.1* 11.2* 10.7* < > 12.0 HCT 26.3* 32.7* 30.2* < > 34.4 MCV 94.0 -- -- -- 90.3 PLT 177 -- -- -- 206 NA 141 142 -- -- 142 K 4.2 4.4 -- -- 4.3 CL 113* 112* -- -- 112* CO2 22* 22* -- -- 21* BUN 21 22 -- -- 13 EGFR 54* 48* -- -- >60 CALCIUM 8.3* 8.0* -- -- 8.9 ANIONGAP 10 12 -- -- 13 PHOS 3.0 -- -- -- -- MG 2.0 2.0 -- -- -- BILI -- -- -- -- 1.1 AST -- -- -- -- 24 ALT -- -- -- -- 22 < > = values in this interval not displayed. No results found for: IRON No results found for: IRON, TIBC, UIBC Lab Results Component Value Date MG 2.0 12/09/2018 MG 2.0 12/08/2018 TSH 6.780 (H) 12/09/2018 Lab Results Component Value Date MONOABS 0.46 12/07/2018 IMAGING: No results found for this or any previous visit (from the past 72 hour(s)). No results found. PROBLEM LIST: ASSESSMENT & PLAN Patient has normocytic anemia with recent melena. She also has history of chest pain, GE r eflux. She has been on aspirin and Brilinta. Last colonoscopy 10 years ago. Previous colo noscopy report not available. I discussed with Dr. Taylor. Dr. Taylor has discusse d with the health promotion manager and its okay to proceed with EGD and colonoscopy. Because of recent drug-eluting stent placement patient cannot come off aspirin and Brilinta. Therefore we ne ed to find out if there is a GI bleeding. She may have reflux esophagitis, pill-induced esophagitis, gastric ulcer duodenal ulcer. I do not think she has varices. She may have slow bleeding from small intestine or colon. I t is best to do EGD and colonoscopy together rather than doing separately so that we do not have to sedate the patient twice. I have explained to the patient that EGD and colonoscopy are more invasive and carry more risk but also more accurate. Patient would like to proceed with both EGD and colonoscopy. I have discussed alternatives of barium swallow upper GI, b arium enema, virtual colonoscopy with the patient onto no testing. Plan: EGD and colonoscopy tomorrow while patient still on aspirin and Brilinta. These procedures will be diagnostic. We will not be able to remove any tissue unless there is a tissue to b e removed and rectum where we can easily access the area in case patient bleeds. Discussed the need, benefits, risks, alternatives and limitations of EGD and colonoscopy wi th the patient in layperson's language. She understands and she will allow us to proceed. EGD consent 12/09/2018 Consent obtained from:Patient Consent was obtained from the healthcare client. The procedure explained in lay person's la nguage. Need, benefits, risks, alternatives and limitations were discussed. The discussion included but was not limited to the following. Possibilities and quantitative risk assessment were d iscussed. Need and benefits Need and benefits: Discussed the need to find out the causes of upper GI symptoms, looking for inflammation, c ancers, ulcers and removing tissue and controlling bleeding if needed. Risks Include the following micronodular limited to the following: Bleeding: Bleeding from throat esophagus, stomach, duodenum, small intestine. Perforation: Perforation of the esophagus, stomach, duodenum, small intestine, splenic hematoma splenic avulsion, splenic laceration, hepatic hematoma. TIA and Stroke Angina and Heart attack Cardiac arrhythmia Heart failure Cardia arrest Breathing problems Respiratory arrest Aphylactic reaction Complications of sedation and anesthesia: Include but not limited to over-sedation, respiratory arrest, cardiac arrest, low blood pre ssure, TIA or mini-stroke, stroke, paralysis, need for resuscitation, ventilator placement. Missed lesions: The test may miss lesions including but not limited to : Ulcers,cancer, polyps, inflammatio n, infections. Alternatives: X-rays, Upper GI series, CT scan, MRI, do no testing, do nothing, empiric medical treatment , ask for second opinion, postpone the test. Limitations: Inability to complete the procedure, control bleeding, remove lesions or achieve the intend ed results. Opportunity to ask questions: Opportunity to ask questions was given. The questions that were asked, were answered. The don herbert did not have further questions. Also see separate paper consent. Client verbalized understanding. Colon consent: 12/09/2018 Consent obtained from:Patient Consent was obtained from the healthcare client. The procedure explained in lay-person's la nguage. Need and benefits: Discussed the need to find out the causes of lower GI symptoms, looking for causes of bleed ing, inflammation, cancers, ulcers and removing tissue and controlling bleeding if needed. Risks Include the following micronodular limited to the following: Bleeding: Bleeding from throat esophagus, stomach, duodenum, small intestine. Perforation: Perforation of the colon, small intestine, splenic hematoma, splenic laceration, splenic av ulsion, hepatic hematoma. TIA and Stroke Angina and heart attack Cardiac arrhythmia Heart failure Cardiac arrest Breathing problems Respiratory arrest Anaphylactic reaction Complications of sedation and anesthesia: Including but not limited to over-sedation, respi ratory arrest, cardiac arrest, low blood pressure, TIA or mini-stroke, stroke, paralysis, ne ed for cardiopulmonary resuscitation, ventilator placement. Unanticipated complications and procedures: It is hard to predict all the possible/ unanticipated complications and procedure but may i nclude:CPR, ACLS, ETT intubationventilator assistance, surgery Missed lesions: The test may miss lesions including but not limited to : Ulcers,cancer, polyps, inflammatio n, infections. Alternatives: X-rays, lower GI series, CT scan, MRI, barium enema, virtual colonoscopy, do no testing, do nothing, empiric medical treatment, ask for second opinion, postpone the test. Limitations: Inability to complete the procedure, control bleeding, remove lesions or achieve the intend ed results. Opportunity to ask questions: Opportunity to ask questions was given. The questions that were asked, were answered. The don herbert did not have further questions. Also see separate paper consent. Client verbalized understanding. Thank you for allowing me to participate in the care of this patient. 12/09/2018 Portions of this chart may have been copied from previous notes for continuity of care purp ose Portions of this chart may have been created with [email or web address] voice recognition software. Occasi onal wrong-word or sound-alike substitutions may have occurred due to the inherent mason itations of voice recognition software. Please read the chart carefully and recognize, using context, where these substitutions have occurred. LAShilpa Saab - 12/09/2018 1005 PDT [facility] Service: Cardiology Progress Note Hospital Day: LOS: 2 days Post-Op Day: * No surgery found * SUBJECTIVE Patient Summary: The patient is a 78-year-old female who presents with chest discomfo rt. She was recently seen at [facility] where she underwent coronary angiography and drug-elutin g stent placement to her proximal LAD on 11/28/2018 she was noted to have residual 60% proxim al RCA disease and 90% distal posterior lateral branch disease. She was sent home on dual a ntiplatelet therapy with aspirin and Brilinta both of which she reports that she has been co mpliant with. She has had increasing chest pain since she was discharged. She has also had new onset bloody stools which turned into dark tarry stools, her Hb/HCT was normal on prese ntation. Presenting EKG demonstrates anterior ST-T wave changes. Her troponins have been n egative. Unfortunately, in the setting of GI bleeding, will need to closely weigh the risks and benefits of repeat coronary angiography. She may be having residual ischemia from her residual disease of the posterior lateral branch. Would suspect a more acute presentation i f she had acute in-stent thrombosis of her prox LAD stent, though this is a consideration. A t this time, we will plan to uptitrate her antianginal therapy with to try to get her chest pain-free. She had an echocardiogram done on 12/07/2018 which demonstrated normal left ventri cular ejection fraction and normal wall motion. Events Overnight: The patient is feeling well this morning. She has not had any episo yoshi of chest pain in the last 24 hours. She reports that she was able to get up and walk ar ound yesterday without any replication of the chest pain. Her last bowel movement was nonbl oody. She was noted to have a drop in her H/H this morning to 9.1/26. Scheduled Medications aspirin 81 mg Oral Daily atorvaSTATin 80 mg Oral Nightly isosorbide mononitrate 120 mg Oral Daily lisinopril 2.5 mg Oral Daily melatonin 3 mg Oral Nightly pantoprazole 40 mg Intravenous BID ticagrelor 90 mg Oral BID Continuous Infusions sodium chloride 0.9% 100 mL/hr at 12/09/18 0110 PRN Medications acetaminophen, morphine, nitroglycerin, ondansetron OR ondansetron OBJECTIVE Vital Signs: BP 116/57 | Pulse 56 | Temp 36.5 C (97.7 F) (Oral) | Resp 17 | Ht 1.549 m (5' 0.98" ) | Wt 87.2 kg (192 lb 3.2 oz) | SpO2 95% | BMI 36.33 kg/m Intake/Output Summary (Last 24 hours) at 12/09/2018 1005 Last data filed at 12/09/2018 0931 Gross per 24 hour Intake 2755 ml Output 1350 ml Net 1405 ml EXAM Constitutional: Well-developed. Neck: No JVD present. No thyromegaly present. Cardiovascular: Regular rhythm, S1 normal and S2 normal. No murmur heard. Pulses: Radial pulses are 2+ on the right side, and 2+ on the left side. Pulmonary/Chest: Effort normal and breath sounds normal. No wheezes. No rales. Abdominal: Soft. No tenderness. Musculoskeletal: No edema. Neurological: Alert. No cranial nerve deficit. Skin: Warm and dry. DATA CBC: Lab Results Component Value Date WBC 4.78 12/09/2018 RBC 2.80 (L) 12/09/2018 HGB 9.1 (L) 12/09/2018 HCT 26.3 (L) 12/09/2018 MCV 94.0 12/09/2018 MCH 32.5 12/09/2018 MCHC 34.6 12/09/2018 PLT 177 12/09/2018 MPV 9.4 12/09/2018 DIFFTYPE AUTOMATED 12/07/2018 CMP: Lab Results Component Value Date NA 141 12/09/2018 K 4.2 12/09/2018 CL 113 (H) 12/09/2018 CO2 22 (L) 12/09/2018 ANIONGAP 10 12/09/2018 BUN 21 12/09/2018 AGRATIO 1.8 12/07/2018 AST 24 12/07/2018 ALT 22 12/07/2018 EGFR 54 (L) 12/09/2018 CPK: No components found for: CKTOTAL Troponin I: No components found for: TROPONINI TSH: Lab Results Component Value Date TSH 6.780 (H) 12/09/2018 No results found for: BNP ASSESSMENT & PLAN 1. Chest pain 2. CAD with recent PCI to LAD 3. GI bleed 4. HTN 5. Hypothyroidism 6. Asthma - The patient is a 78-year-old female who presents with chest discomfort. She was recentl y seen at [facility] where she underwent coronary angiography and drug-eluting stent placement to her proximal LAD on 11/28/2018 she was noted to have residual 60% proximal RCA disease and 9 0% distal posterior lateral branch disease. She was sent home on dual antiplatelet therapy with aspirin and Brilinta both of which she reports that she has been compliant with. She h as had increasing chest pain since she was discharged. She has also had new onset bloody st ools which turned into dark tarry stools, her Hb/HCT was normal on presentation. Presenting EKG demonstrates anterior ST-T wave changes. Her troponins have been negative. Alea bustillos, in the setting of GI bleeding, will need to closely weigh the risks and benefits of rep eat coronary angiography. She may be having ischemia from her residual disease of the poste rior lateral branch. Would suspect a more acute presentation if she had acute in-stent thro mbosis of her prox LAD stent, though this is a consideration. At this time, we will plan to uptitrate her antianginal therapy with to try to get her chest pain-free. She should be cont inued on DAPT given her recent stents. She had an echocardiogram done on 12/07/2018 which demo nstrated normal left ventricular ejection fraction and normal wall motion. She has been capo st pain-free since increasing her Imdur to 120 mg by mouth daily. She was noted to have a d rop in her hemoglobin and hematocrit this morning. -Continue aspirin 81 mg by mouth daily, Brilinta 90 mg by mouth twice daily -Continue Imdur to 120 mg by mouth daily -Continue atorvastatin 80 mg by mouth daily -Beta-anjali held due to resting bradycardia -Continue lisinopril 2.5 mg by mouth daily -Will continue to follow Code Status: Full Code Shilpa Saab DO hilpa Saab DO - 2018 1237 PDT [facility] Service: Cardiology Progress Note Hospital Day: LOS: 1 day Post-Op Day: * No surgery found * SUBJECTIVE Patient Summary: The patient is a 78-year-old female who presents with chest discomfo rt. She was recently seen at [facility] where she underwent coronary angiography and drug-elutin g stent placement to her proximal LAD on 11/28/2018 she was noted to have residual 60% proxim al RCA disease and 90% distal posterior lateral branch disease. She was sent home on dual a ntiplatelet therapy with aspirin and Brilinta both of which she reports that she has been co mpliant with. She has had increasing chest pain since she was discharged. She has also had new onset bloody stools which turned into dark tarry stools, her Hb/HCT was normal on prese ntation. Presenting EKG demonstrates anterior ST-T wave changes. Her troponins have been n egative. Unfortunately, in the setting of GI bleeding, will need to closely weigh the risks and benefits of repeat coronary angiography. She may be having residual ischemia from her residual disease of the posterior lateral branch. Would suspect a more acute presentation i f she had acute in-stent thrombosis of her prox LAD stent, though this is a consideration. A t this time, we will plan to uptitrate her antianginal therapy with to try to get her chest pain-free. She had an echocardiogram done on 12/07/2018 which demonstrated normal left ventri cular ejection fraction and normal wall motion. Events Overnight: The patient had a episode of chest pain this morning before she took her medications. After she took her meds, she felt much better. She was able to get up an d take a shower and was chest pain-free with this activity. She had a bowel movement yester day which was loose and dark but nonbloody. Her hemoglobin/HCT this morning were stable at 11.2/32.7. Scheduled Medications aspirin 81 mg Oral Daily atorvaSTATin 80 mg Oral Nightly isosorbide mononitrate 120 mg Oral Daily lisinopril 2.5 mg Oral Daily melatonin 3 mg Oral Nightly pantoprazole 40 mg Intravenous BID ticagrelor 90 mg Oral BID Continuous Infusions sodium chloride 0.9% 75 mL/hr at 12/08/18 0258 PRN Medications acetaminophen, morphine, nitroglycerin, ondansetron OR ondansetron OBJECTIVE Vital Signs: BP 114/57 | Pulse 57 | Temp 36.9 C (98.4 F) (Oral) | Resp 20 | Ht 1.549 m (5' 0.98" ) | Wt 85.2 kg (187 lb 13.3 oz) | SpO2 95% | BMI 35.51 kg/m Intake/Output Summary (Last 24 hours) at 12/08/2018 1237 Last data filed at 12/08/2018 0918 Gross per 24 hour Intake 1604 ml Output 650 ml Net 954 ml EXAM Constitutional: Well-developed. Neck: No JVD present. No thyromegaly present. Cardiovascular: Regular rhythm, S1 normal and S2 normal. No murmur heard. Pulses: Radial pulses are 2+ on the right side, and 2+ on the left side. Pulmonary/Chest: Effort normal and breath sounds normal. No wheezes. No rales. Abdominal: Soft. No tenderness. Musculoskeletal: No edema. Neurological: Alert. No cranial nerve deficit. Skin: Warm and dry. DATA CBC: Lab Results Component Value Date WBC 6.85 12/07/2018 RBC 3.81 12/07/2018 HGB 11.2 (L) 12/08/2018 HCT 32.7 (L) 12/08/2018 MCV 90.3 12/07/2018 MCH 31.4 12/07/2018 MCHC 34.7 12/07/2018 PLT 206 12/07/2018 MPV 8.5 12/07/2018 DIFFTYPE AUTOMATED 12/07/2018 CMP: Lab Results Component Value Date NA 142 12/08/2018 K 4.4 12/08/2018 CL 112 (H) 12/08/2018 CO2 22 (L) 12/08/2018 ANIONGAP 12 12/08/2018 BUN 22 12/08/2018 AGRATIO 1.8 12/07/2018 AST 24 12/07/2018 ALT 22 12/07/2018 EGFR 48 (L) 12/08/2018 CPK: No components found for: CKTOTAL Troponin I: No components found for: TROPONINI TSH: No results found for: TSH No results found for: BNP ASSESSMENT & PLAN 1. Chest pain 2. CAD with recent PCI to LAD 3. GI bleed 4. HTN 5. Hypothyroidism 6. Asthma - The patient is a 78-year-old female who presents with chest discomfort. She was recentl y seen at [facility] where she underwent coronary angiography and drug-eluting stent placement to her proximal LAD on 11/28/2018 she was noted to have residual 60% proximal RCA disease and 9 0% distal posterior lateral branch disease. She was sent home on dual antiplatelet therapy with aspirin and Brilinta both of which she reports that she has been compliant with. She h as had increasing chest pain since she was discharged. She has also had new onset bloody st ools which turned into dark tarry stools, her Hb/HCT was normal on presentation. Presenting EKG demonstrates anterior ST-T wave changes. Her troponins have been negative. Alea bustillos, in the setting of GI bleeding, will need to closely weigh the risks and benefits of rep eat coronary angiography. She may be having ischemia from her residual disease of the poste rior lateral branch. Would suspect a more acute presentation if she had acute in-stent thro mbosis of her prox LAD stent, though this is a consideration. At this time, we will plan to uptitrate her antianginal therapy with to try to get her chest pain-free. She should be cont inued on DAPT given her recent stents. She had an echocardiogram done on 12/07/2018 which demo nstrated normal left ventricular ejection fraction and normal wall motion. -Continue aspirin 81 mg by mouth daily, Brilinta 90 mg by mouth twice daily -Increase Imdur to 120 mg by mouth daily -Continue atorvastatin 80 mg by mouth daily -Beta-anjali held due to resting bradycardia -Continue lisinopril 2.5 mg by mouth daily -Will continue to follow Code Status: Full Code Shilpa Saab DO Tc Vera MD - 0936 PDT [facility] Adult Hospitalist Progress Note Hospital Day: 1 Patient Summary: 78 y/o F with past medical history HTN, CAD, recent PCI with YOSHI to the proximal LAD in [facility] on November 28, 2018, with residual 60% stenosis of RCA and 90% stenosis of PL branch, on aspirin 81 mg and Brilinta 90 mg twice daily, hypothyroidism , asthma mild intermittent, wh o presented with chest pain radiating to both arms and neck associated with exertion similar to prior chest pain taking sublingual nitro at home for doses did not help. She also compl ained of bright red blood per rectum in the last 3 days later on became black tarry stools. Last colonoscopy 10 years ago significant for finding of hemorrhoids. She came to [facility] emergency room. Initial troponin negative. EKG no acute ischemic change. Due to c omplex case patient was transferred to [facility]. Cardiology and gastroenterology consulted. Wh en she got transferred here initial EKG showed T wave inversions in the anterior leads. Tro ponins negative x2. Due to recent stent placement patient was continued on aspirin and Bril inta, Imdur 60 mg added for chest pain. Unable to give beta-anjali due to resting bradycar audrey. Echocardiogram is ordered.Gastroenterology agreed with continuation of Brilinta and as pirin. No blood transfusion was necessary. Risk of pursuing endoscopy currently outweighs benefit hence we are currently conservatively treating and closely monitoring patient IMPRESSION/PLAN: Principal Problem: Chest pain Did have chest pain 6/10 before meds this AM, central, radiating to L arm and L jaw Will need to be monitored closely Telemetry o2 supplementation Continue ASA, brillinta, unable to tolerate B anjali due to baseline bradycardia, imdur w as added by Cardiology, continue lisinopril Cardiology following Active Problems: Concern for GI bleed - no further bleeding or dark stools today , she did have BM This morning H/H stable Continue PPI Bid GI following, recommending medical management and conservative strategy RICKEY pt is post cardiac cath 11/28/18 Trios Will increase IVF rate Hypothyroidism Not on meds, check TSH Esophageal reflux Continue PPI Asthma No exacerbation,mild intermittent HYPERTENSION, BENIGN ESSENTIAL Stable, continue lisinopril, isosorbide mononitrate Unable to tolerate B anjali due to bradycardia GI prophylaxis: protonix DVT prophylaxis: SCDs Given concern for GI bleed SUBJECTIVE Patient seen and examined. Just finished taking a shower. Feels better but did have 6/10 CP before meds this am OBJECTIVE Vital Signs: BP 113/56 | Pulse 57 | Temp 36.9 C (98.4 F) (Oral) | Resp 20 | Ht 1.549 m (5' 0.98" ) | Wt 85.2 kg (187 lb 13.3 oz) | SpO2 95% | BMI 35.51 kg/m Physical Exam: Constitutional: Alert and oriented to person, place, and time. Appears well-developed and w ell-nourished. HEENT: Neck supple, no JVD, non icteric sclera. Cardiovascular: Normal rate, regular rhythm, no murmur Pulmonary/Chest: Effort normal and breath sounds normal. No stridor. No respiratory distres s. no wheezes. no rales. Abdominal: Soft. Bowel sounds are normal. No distension.There is no tenderness. Extremeties/Musculoskeletal: Normal range of motion. No edema. Neurological: Alert and oriented to person, place, and time. Skin: Skin is warm. No diaphoresis. Psychiatric: Has normal mood and affect. DATA Labs: No results found. Recent Labs 12/08/1831812/07/18192412/07/18425 WBC -- -- -- 6.85 HGB 11.2* 10.7* < > 12.0 HCT 32.7* 30.2* < > 34.4 PLT -- -- -- 206 MCV -- -- -- 90.3 < > = values in this interval not displayed. Recent Labs Lab 12/08/1831812/07/18425 NA 142 142 K 4.4 4.3 CL 112* 112* CO2 22* 21* ANIONGAP 12 13 BUN 22 13 CREA 1.1* 0.84 CALCIUM 8.0* 8.9 ALBUMIN -- 4.1 ALKPHOS -- 97 ALT -- 22 AST -- 24 MG 2.0 -- Recent Labs 12/08/1831812/07/18425 GLU 90 111* No results for input(s): TROPONIN, BNP in the last 72 hours. No results for input(s): PROTIME, INR, PTT in the last 168 hours. No results for input(s): IRON, TIBC, PCTSAT, FERRITIN, TSH, [id number], FOLATE in the last 168 hours. No results for input(s): LACTATE, PROCALCITONI, CRP, ESR in the last 168 hours. No results for input(s): AMYLASE, LIPASE in the last 168 hours. Recent Labs Lab 12/07/18 1132 TRIG 104 CHOL 97 HDL 41 LDL 35 No results for input(s): AMMONIA in the last 168 hours. Imaging reviewed and important information summarized in the note PROBLEM LIST Principal Problem: Chest pain Active Problems: Hypothyroidism Esophageal reflux Asthma HYPERTENSION, BENIGN ESSENTIAL Upper GI bleed I spent over 35 minutes reviewing patient's labs, diagnostic, tests, performing history and examination, discussing plan of care with patient and family if indicated. At least 50% of time was spent in [id number]-og-[id number] coordination of care and counseling. All questions were ans wered. All data reviewed. Disposition: Admitted inpatient Code Status: Full Code Tc Garcia MD 12/08/2018 9:36 Portions of this chart may have been created with voice recognition software. Occasional wr elmer-word or "sound-alike" substitutions may have occurred, even after review, due to the inh erent limitations of voice recognition software. Please read the chart carefully and recogni ze, using context, where these substitutions have occurred. Personal communication is reques maggie for any clarifications. documented in this enc ounter Plan of Treatment +--------+---------+ + + + | Date | Type | Specialty | Care Team | Description | +--------+---------+ + + + | 02/23/ | Office | Cardiology | Julia No | | | 2018 | Visit | | [address] | | | | | | [address] | | | | | | [place] [address] | | | | | | [phone] | | | | | | | | +--------+---------+ + + + + +--------+ + + | Name | Priori | Associated Diagnoses | Date/Time | | | ty | | | + +--------+ + + | ED INFORMATION EXCHANGE | Routin | | 12/07/2018 4:09 PDT | | | e | | | + +--------+ + + + +--------+ + + | Name | Priori | Associated Diagnoses | Order Schedule | | | ty | | | + +--------+ + + | Ambulatory referral to Cardiology | Routin | Chest pain, | Ordered: 12/11/2018 | | | e | unspecified type | | | | | CORONARY ARTERY | | | | | SPASM | | + +--------+ + + | Ambulatory referral to | Routin | Melena | Ordered: 12/11/2018 | | Gastroenterology | e | | | + +--------+ + + documented as of this encounter Procedures + +--------+ + + + | Procedure Name | Priori | Date/Time | Associated Diagnosis | Comments | | | ty | | | | + +--------+ + + + | HEMOGLOBIN AND | Routin | 12/11/2018 | | Results for this | | HEMATOCRIT | e | 5:43 PDT | | procedure are in the | | | | | | results section. | + +--------+ + + + | ECG 12 LEAD | Routin | 12/10/2018 | | Results for this | | | e | 13:21 PDT | | procedure are in the | | | | | | results section. | + +--------+ + + + | TROPONIN I | Routin | 12/10/2018 | | Results for this | | | e | 12:59 PDT | | procedure are in the | | | | | | results section. | + +--------+ + + + | HEMOGLOBIN AND | Routin | 12/10/2018 | | Results for this | | HEMATOCRIT | e | 8:09 PDT | | procedure are in the | | | | | | results section. | + +--------+ + + + | IRON AND IRON | Routin | 12/10/2018 | | Results for this | | BINDING CAPACITY | e | 5:16 PDT | | procedure are in the | | | | | | results section. | + +--------+ + + + | VITAMIN B-12 | Routin | 12/10/2018 | | Results for this | | | e | 5:16 PDT | | procedure are in the | | | | | | results section. | + +--------+ + + + | FOLATE | Routin | 12/10/2018 | | Results for this | | | e | 5:16 PDT | | procedure are in the | | | | | | results section. | + +--------+ + + + | FERRITIN | Routin | 12/10/2018 | | Results for this | | | e | 5:16 PDT | | procedure are in the | | | | | | results section. | + +--------+ + + + | MAGNESIUM | Routin | 12/09/2018 | | Results for this | | | e | 22:25 PDT | | procedure are in the | | | | | | results section. | + +--------+ + + + | BASIC METABOLIC | Routin | 12/09/2018 | | Results for this | | PANEL | e | 22:25 PDT | | procedure are in the | | | | | | results section. | + +--------+ + + + | HEMOGLOBIN AND | Routin | 12/09/2018 | | Results for this | | HEMATOCRIT | e | 20:37 PDT | | procedure are in the | | | | | | results section. | + +--------+ + + + | FECAL HEMOGLOBIN | Routin | 12/09/2018 | | Results for this | | | e | 17:38 PDT | | procedure are in the | | | | | | results section. | + +--------+ + + + | CBC NO DIFFERENTIAL | Routin | 12/09/2018 | | Results for this | | | e | 5:15 PDT | | procedure are in the | | | | | | results section. | + +--------+ + + + | TSH | Routin | 12/09/2018 | | Results for this | | | e | 5:15 PDT | | procedure are in the | | | | | | results section. | + +--------+ + + + | MAGNESIUM | Routin | 12/09/2018 | | Results for this | | | e | 5:15 PDT | | procedure are in the | | | | | | results section. | + +--------+ + + + | RENAL FUNCTION PANEL | Routin | 12/09/2018 | | Results for this | | | e | 5:15 PDT | | procedure are in the | | | | | | results section. | + +--------+ + + + | URINALYSIS WITH | Routin | 12/08/2018 | | Results for this | | MICROSCOPIC IF | e | 17:03 PDT | | procedure are in the | | INDICATED | | | | results section. | + +--------+ + + + | URINALYSIS, | Routin | 12/08/2018 | | Results for this | | MICROSCOPIC ONLY | e | 17:03 PDT | | procedure are in the | | | | | | results section. | + +--------+ + + + | ECG 12 LEAD | Routin | 12/08/2018 | | Results for this | | | e | 7:03 PDT | | procedure are in the | | | | | | results section. | + +--------+ + + + | HEMOGLOBIN AND | Routin | 12/08/2018 | | Results for this | | HEMATOCRIT | e | 3:19 PDT | | procedure are in the | | | | | | results section. | + +--------+ + + + | MAGNESIUM | Routin | 12/08/2018 | | Results for this | | | e | 3:19 PDT | | procedure are in the | | | | | | results section. | + +--------+ + + + | BASIC METABOLIC | Routin | 12/08/2018 | | Results for this | | PANEL | e | 3:19 PDT | | procedure are in the | | | | | | results section. | + +--------+ + + + | TROPONIN I | Routin | 12/08/2018 | | Results for this | | | e | 3:18 PDT | | procedure are in the | | | | | | results section. | + +--------+ + + + | TROPONIN I | Routin | 12/07/2018 | | Results for this | | | e | 19:25 PDT | | procedure are in the | | | | | | results section. | + +--------+ + + + | HEMOGLOBIN AND | Routin | 12/07/2018 | | Results for this | | HEMATOCRIT | e | 19:25 PDT | | procedure are in the | | | | | | results section. | + +--------+ + + + | ECHO COMPLETE | Routin | 12/07/2018 | | Results for this | | | e | 17:07 PDT | | procedure are in the | | | | | | results section. | + +--------+ + + + | TROPONIN I | Routin | 12/07/2018 | | Results for this | | | e | 14:25 PDT | | procedure are in the | | | | | | results section. | + +--------+ + + + | LIPID PANEL | Routin | 12/07/2018 | | Results for this | | | e | 11:32 PDT | | procedure are in the | | | | | | results section. | + +--------+ + + + | TROPONIN I | Routin | 12/07/2018 | | Results for this | | | e | 11:32 PDT | | procedure are in the | | | | | | results section. | + +--------+ + + + | HEMOGLOBIN AND | Routin | 12/07/2018 | | Results for this | | HEMATOCRIT | e | 11:32 PDT | | procedure are in the | | | | | | results section. | + +--------+ + + + | TROPONIN I | STAT | 12/07/2018 | | Results for this | | | | 4:26 PDT | | procedure are in the | | | | | | results section. | + +--------+ + + + | CBC WITH | STAT | 12/07/2018 | | Results for this | | DIFFERENTIAL | | 4:26 PDT | | procedure are in the | | | | | | results section. | + +--------+ + + + | COMPREHENSIVE | STAT | 12/07/2018 | | Results for this | | METABOLIC PANEL | | 4:26 PDT | | procedure are in the | | | | | | results section. | + +--------+ + + + | ECG 12 LEAD | STAT | 12/07/2018 | | Results for this | | | | 4:19 PDT | | procedure are in the | | | | | | results section. | + +--------+ + + + | OXYGEN THERAPY | STAT | 12/07/2018 | | | | | | 4:16 PDT | | | + +--------+ + + + | ED INFORMATION | Routin | 12/07/2018 | | | | EXCHANGE | e | 4:09 PDT | | | + +--------+ + + + +---+--------+ | | | | | Proced | | | ure | | | Note - | | | Landon, | | | Lab In | | | | | | Hlseve | | | n - | | | | | | 2018 | | | 0410 | | | PDT | | | Format | | | ting | | | of | | | this | | | note | | | might | | | be | | | differ | | | ent | | | from | | | the | | | origin | | | al.COL | | | LECTIV | | | E?NOTI | | | FICATI | | | ON?/ | | | | | | 9 | | | 04:09? | | | [place]ER | | | , NISH | | | | | | F?MRN: | | | | | | [id number] | | | [id number] | | | riteri | | | a Met | | | 2 in | | | 2Secur | | | ity | | | and | | | Safety | | | No | | | recent | | | | | | Securi | | | ty | | | Events | | | | | | curren | | | tly on | | | | | | fileED | | | Care | | | Guidel | | | inesTh | | | ere | | | are | | | curren | | | tly no | | | ED | | | Care | | | Guidel | | | carlee | | | for | | | this | | | patien | | | t. | | | Please | | | check | | | your | | | facili | | | ty's | | | medica | | | l | | | record | | | s | | | system | | | .Presc | | | riptio | | | n Drug | | | | | | Report | | | (12 | | | Mo.)PD | | | MP | | | query | | | found | | | no | | | report | | | .E.D. | | | Visit | | | Count | | | (12 | | | mo.)Fa | | | cility | | | | | | Visits | | | Low | | | Acuity | | | | | | [facility] | | | | | | [facility] | | | al | | | Medica | | | l | | | Center | | | 1 0 | | | [facility] [place] | | | y | | | Hospit | | | al 2 0 | | | Total | | | 3 0 | | | Note: | | | Visits | | | | | | indica | | | te | | | total | | | known | | | visits | | | . | | | Medica | | | id Low | | | | | | Acuity | | | Dx | | | are | | | the | | | number | | | of | | | primar | | | y | | | diagno | | | ses on | | | the | | | Medica | | | id's | | | Low | | | Acuity | | | dx | | | list. | | | | | | Recent | | | | | | Emerge | | | ncy | | | Depart | | | ment | | | Visit | | | [facility] | | | yDate | | | Facili | | | ty | | | City | | | State | | | Type | | | Diagno | | | ses or | | | Chief | | | | | | Compla | | | int | | | Sep 8, | | | 2019 | | | [facility] | | | | | | [facility] | | | al | | | [facility] | | | [place] | | | [place] | | | Emerge | | | ncy | | | Sep 7, | | | 2019 | | | [facility] [place] | | | y H. | | | [place] | | | [place] | | | Emerge | | | ncy | | | Chief | | | Compla | | | int: | | | CHEST | | | PAIN | | | Aug | | | 30, | | | 2019 | | | [facility] [place] | | | y [facility]. | | | [place] | | | [place] | | | Emerge | | | ncy | | | Other | | | chest | | | pain | | | | | | Unstab | | | le | | | angina | | | | | | Recent | | | | | | Inpati | | | ent | | | Visit | | | [facility] | | | yDate | | | Facili | | | ty | | | City | | | State | | | Type | | | Diagno | | | ses or | | | Chief | | | | | | Compla | | | int | | | Aug | | | 30, | | | 2019 | | | [facility] | | | [place] | | | idge | | | H. | | | [place] | | | [place] | | | Medica | | | l | | | Surgic | | | al | | | 0. | | | Chest | | | pain, | | | unspec | | | ified | | | 1. | | | Athero | | | sclero | | | tic | | | heart | | | diseas | | | e of | | | seneca-cayuga | | | | | | chin | | | ry | | | artery | | | with | | | unstab | | | le | | | angina | | | | | | pector | | | is | | | 2. | | | Unspec | | | ified | | | asthma | | | , | | | uncomp | | | licate | | | d | | | 3. | | | Hypoth | | | yroidi | | | sm, | | | unspec | | | ified | | | Care | | | TeamPr | | | ovider | | | PRC | | | Type | | | Phone | | | Fax | | | Servic | | | e | | | Dates | | | ILA | | | KARGAR | | | | | | Primar | | | y Care | | | Dec | | | 1, | | | 2011 - | | | | | | Curren | | | t | | | Unknow | | | n | | | Other | | | | | | Curren | | | t | | | [facility] | | | tive | | | Portal | | | This | | | patien | | | t has | | | regist | | | ered | | | at the | | | | | | [facility] | | | | | | Region | | | al | | | Medica | | | l | | | Center | | | | | | Emerge | | | ncy | | | Depart | | | ment | | | For | | | more | | | inform | | | ation | | | visit: | | | | | | https: | | | //secu | | | re.col | | | lectiv | | | emedic | | | al.com | | | /notif | | | [id number] | | | [id number] | | | [email or web address] | | | [email or web address] | | | [phone] | | | [email or web address] | | | 4b | | | PLEASE | | | NOTE: | | | 1. | | | Any | | | care | | | recomm | | | endati | | | ons | | | and | | | other | | | clinic | | | al | | | inform | | | ation | | | are | | | provid | | | ed as | | | guidel | | | carlee | | | or for | | | | | | histor | | | ical | | | purpos | | | es | | | only, | | | and | | | provid | | | ers | | | should | | | | | | exerci | | | se | | | their | | | own | | | clinic | | | al | | | judgme | | | nt | | | when | | | provid | | | ing | | | care. | | | 2. | | | You | | | may | | | only | | | use | | | this | | | inform | | | ation | | | for | | | purpos | | | es of | | | treatm | | | ent, | | | paymen | | | t or | | | health | | | care | | | operat | | | ions | | | activi | | | ties, | | | and | | | subjec | | | t to | | | the | | | limita | | | tions | | | of | | | applic | | | able | | | [facility] | | | tive | | | Polici | | | es. | | | 3. | | | You | | | should | | | | | | consul | | | t | | | direct | | | ly | | | with | | | the | | | organi | | | zation | | | that | | | provid | | | ed a | | | care | | | guidel | | | ine or | | | other | | | | | | clinic | | | al | | | histor | | | y with | | | any | | | questi | | | ons | | | about | | | additi | | | onal | | | inform | | | ation | | | or | | | accura | | | cy or | | | comple | | | teness | | | of | | | inform | | | ation | | | provid | | | ed.? | | | 2019 | | | [facility] | | | tive | | | Medica | | | l | | | [employer] | | | logies | | | , [employer] | | | - | | | [email or web address] | | | llecti | | | vemedi | | | [email or web address] | | | m | +---+--------+ documented in this encounter Results Hemoglobin and Hematocrit (12/11/2018 5:43 PDT) + + + + + + | Component | Value | Ref Range | Performed | Pathologist | | | | | At | Signature | + + + + + + | Hemoglobin | 9.6 (L) | 11.3 - 15.5 | [facility] | | | | | g/dL | LABORATORY | | + + + + + + | Hematocrit | 27.5 (L)Comment: Testing | 34.0 - 46.0 % | [facility] | | | | performed at [facility] | | LABORATORY | | | | [address] [facility];[place] | | | | | | [address] | | | | + + + + + + + + | Specimen | + + | Blood | + + + + + + + | Performing | Address | City/State/Zipcode | Phone Number | | Organization | | | | + + + + + | [facility] | [address] | [place] [address] | [phone] | + + + + + ECG 12 lead (12/10/2018 13:21 PDT) + + + + + + | Component | Value | Ref Range | Performed | Pathologist | | | | | At | Signature | + + + + + + | VENTRICULAR | 56 | BPM | [facility] | | | RATE EKG | | | | | + + + + + + | ATRIAL RATE | 56 | BPM | [facility] | | + + + + + + | P-R | 172 | ms | [facility] | | | INTERVAL | | | | | + + + + + + | QRS | 74 | ms | [facility] | | | DURATION | | | | | + + + + + + | Q-T | 446 | ms | [facility] | | | INTERVAL | | | | | + + + + + + | Q-T | 430 | ms | [facility] | | | INTERVAL | | | | | | (CORRECTED) | | | | | + + + + + + | P WAVE AXIS | 48 | degrees | [facility] | | + + + + + + | QRS AXIS | 21 | degrees | [facility] | | + + + + + + | T AXIS | 42 | degrees | [facility] | | + + + + + + | INTERPRETAT | Sinus bradycardiaST & T | | [facility] | | | ION TEXT | wave abnormality, | | | | | | consider anterolateral | | | | | | ischemiaNonspecific ST | | | | | | and/or T wave | | | | | | abnormalitiesAbnormal | | | | | | ECGWhen compared with | | | | | | ECG of 08-DEC-2018 | | | | | | 07:03,No significant | | | | | | change was | | | | | | foundConfirmed by | | | | | | SRIDHAR JACKMAN MD ([id number]) | | | | | | on 12/11/2018 8:41:22 AM | | | | + + + + + + + + | Specimen | + + | | + + + + + | Narrative | Performed At | + + + | | | + + + + +---------+ + + | Performing | Address | City/State/Zipcode | Phone Number | | Organization | | | | + +---------+ + + | [facility] | | | | + +---------+ + + Troponin I (12/10/2018 12:59 PDT) + + + + + + | Component | Value | Ref Range | Performed | Pathologist | | | | | At | Signature | + + + + + + | Troponin I | 0.124 (H)Comment: 0.04 | 0.00 - 0.04 | [facility] | | | | ng/mL or | ng/mL | LABORATORY | | | | less Nega | | | | | | tive, repeat testing in | | | | | | four to six hour | | | | | | ifclinically | | | | | | indicted0.05 to 0.77 | | | | | | ng/mL Loreta | | | | | | picious for myocardial | | | | | | injury. Serial | | | | | | measurementsmay be | | | | | | necessary to confirm or | | | | | | exclude the diagnosis of | | | | | | acute coronarysyndrome. | | | | | | Repeat testing in four | | | | | | to six hours if | | | | | | indicated.0.78 or | | | | | | greater | | | | | | ng/mL Consistent | | | | | | with myocardial injury. | | | | | | Clinical andlaboratory | | | | | | correlation recommended. | | | | | | Testing performed at | | | | | | [facility];[address] [facility] | | | | | | [place] [address] | | | | + + + + + + + + | Specimen | + + | Blood | + + + + + + + | Performing | Address | City/State/Zipcode | Phone Number | | Organization | | | | + + + + + | [facility] | [address] | [place] [address] | [phone] | + + + + + Hemoglobin and Hematocrit (12/10/2018 8:09 PDT) + + + + + + | Component | Value | Ref Range | Performed | Pathologist | | | | | At | Signature | + + + + + + | Hemoglobin | 10.5 (L) | 11.3 - 15.5 | [facility] | | | | | g/dL | LABORATORY | | + + + + + + | Hematocrit | 30.3 (L)Comment: Testing | 34.0 - 46.0 % | [facility] | | | | performed at [facility];[address] | | LABORATORY | | | | [address];[place], [place] | | | | | | [address] | | | | + + + + + + + + | Specimen | + + | Blood | + + + + + + + | Performing | Address | City/State/Zipcode | Phone Number | | Organization | | | | + + + + + | [facility] | [address] | [place] [address] | [phone] | + + + + + Folate (12/10/2018 5:16 PDT) + + + + + + | Component | Value | Ref Range | Performed | Pathologist | | | | | At | Signature | + + + + + + | FOLATE | 13.1Comment: Testing | >5.4 ng/mL | [facility] | | | | performed at [facility], [address] | | LABORATORY | | | | [facility], | | | | | | [place] [address] | | | | + + + + + + + + | Specimen | + + | Blood | + + + + + + + | Performing | Address | City/State/Zipcode | Phone Number | | Organization | | | | + + + + + | [facility] | [address] | [place] [address] | [phone] | + + + + + Vitamin B-12 (12/10/2018 5:16 PDT) + + + + + + | Component | Value | Ref Range | Performed | Pathologist | | | | | At | Signature | + + + + + + | VITAMIN | 516Comment: Testing | 254 - 1,320 | [facility] | | | B-12 | performed at [facility], [address] | pg/mL | LABORATORY | | | | [place], | | | | | | [place] [address] | | | | + + + + + + + + | Specimen | + + | Blood | + + + + + + + | Performing | Address | City/State/Zipcode | Phone Number | | Organization | | | | + + + + + | [facility] | [address] | [place] [address] | [phone] | + + + + + Ferritin (12/10/2018 5:16 PDT) + + + + + + | Component | Value | Ref Range | Performed | Pathologist | | | | | At | Signature | + + + + + + | Ferritin | 29Comment: Testing | 6 - 170 ng/mL | [facility] | | | | performed at [facility], [address] | | LABORATORY | | | | [place], | | | | | | [place] [address] | | | | + + + + + + + + | Specimen | + + | Blood | + + + + + + + | Performing | Address | City/State/Zipcode | Phone Number | | Organization | | | | + + + + + | [facility] | [address] | [place] [address] | [phone] | + + + + + Iron and Iron Binding Capacity (12/10/2018 5:16 PDT) + + + + + + | Component | Value | Ref Range | Performed | Pathologist | | | | | At | Signature | + + + + + + | Iron | 32 | 30 - 180 ug/dL | [facility] | | | | | | LABORATORY | | + + + + + + | Iron | 338 | 260 - 490 ug/dL | [facility] | | | Binding | | | LABORATORY | | | Capacity | | | | | + + + + + + | Iron | 9 (L)Comment: Testing | 15 - 50 % | [facility] | | | Saturation | performed at [facility], [address] | | LABORATORY | | | | [place], | | | | | | [place] [address] | | | | + + + + + + + + | Specimen | + + | Blood | + + + + + + + | Performing | Address | City/State/Zipcode | Phone Number | | Organization | | | | + + + + + | [facility] | [address] | [place] [address] | [phone] | + + + + + Magnesium (12/09/2018 22:25 PDT) + + + + + + | Component | Value | Ref Range | Performed | Pathologist | | | | | At | Signature | + + + + + + | Magnesium | 2.1Comment: Testing | 1.7 - 2.4 mg/dL | [facility] | | | | performed at [facility], [address] | | LABORATORY | | | | [place], | | | | | | [place] [address] | | | | + + + + + + + + | Specimen | + + | Blood | + + + + + + + | Performing | Address | City/State/Zipcode | Phone Number | | Organization | | | | + + + + + | [facility] | [address] | [place] [address] | [phone] | + + + + + Basic Metabolic Panel (12/09/2018 22:25 PDT) + + + + + + | Component | Value | Ref Range | Performed | Pathologist | | | | | At | Signature | + + + + + + | Na | 143 | 135 - 145 | [facility] | | | | | mmol/L | LABORATORY | | + + + + + + | K | 4.1 | 3.5 - 4.9 | [facility] | | | | | mmol/L | LABORATORY | | + + + + + + | Cl | 111 (H) | 99 - 109 mmol/L | [facility] | | | | | | LABORATORY | | + + + + + + | CO2 | 20 (L) | 23 - 32 mmol/L | [facility] | | | | | | LABORATORY | | + + + + + + | Anion Gap | 16 | 5 - 20 mmol/L | [facility] | | | | | | LABORATORY | | + + + + + + | Glucose | 109 (H) | 65 - 99 mg/dL | [facility] | | | | | | LABORATORY | | + + + + + + | BUN | 17 | 8 - 25 mg/dL | [facility] | | | | | | LABORATORY | | + + + + + + | Creatinine | 1.0 | 0.50 - 1.00 | [facility] | | | | | mg/dL | LABORATORY | | + + + + + + | BUN/Creatin | 17 | | [facility] | | | ine Ratio | | | LABORATORY | | + + + + + + | Calcium | 9.3 | 8.5 - 10.5 | [facility] | | | | | mg/dL | LABORATORY | | + + + + + + | Estimated | 54 (L)Comment: GFR <60: | >60 | [facility] | | | GFR | CHRONIC KIDNEY DISEASE, | mL/min/1.73m2 | LABORATORY | | | | IF FOUND OVER A 3 MONTH | | | | | | PERIOD.GFR <15: KIDNEY | | | | | | FAILURE.FOR | | | | | | AMERICANS, MULTIPLY THE | | | | | | CALCULATED GFR BY | | | | | | 1.210.This eGFR is | | | | | | calculated using the | | | | | | MDRD IDMS traceable | | | | | | equation.Testing | | | | | | performed at [facility], [address] | | | | | | [place] [address], | | | | | | [place] [address] | | | | + + + + + + + + | Specimen | + + | Blood | + + + + + + + | Performing | Address | City/State/Zipcode | Phone Number | | Organization | | | | + + + + + | [facility] | [address] [facility] | [place] [address] | [phone] | + + + + + Hemoglobin and Hematocrit (12/09/2018 20:37 PDT) + + + + + + | Component | Value | Ref Range | Performed | Pathologist | | | | | At | Signature | + + + + + + | Hemoglobin | 10.3 (L) | 11.3 - 15.5 | [facility] | | | | | g/dL | LABORATORY | | + + + + + + | Hematocrit | 29.4 (L)Comment: Testing | 34.0 - 46.0 % | [facility] | | | | performed at [facility];[address] | | LABORATORY | | | | [facility];[place], [place] | | | | | | [address] | | | | + + + + + + + + | Specimen | + + | Blood | + + + + + + + | Performing | Address | City/State/Zipcode | Phone Number | | Organization | | | | + + + + + | [facility] | [address] | [place] [address] | [phone] | + + + + + Fecal Hemoglobin (12/09/2018 17:38 PDT) + + + + + + | Component | Value | Ref Range | Performed | Pathologist | | | | | At | Signature | + + + + + + | FECAL | POSITIVE (A)Comment: | NEG | [facility] | | | OCCULT BLD | Testing performed at | | LABORATORY | | | | [facility];[address];[place] [address] | | | | + + + + + + + + | Specimen | + + | Stool | + + + + + + + | Performing | Address | City/State/Zipcode | Phone Number | | Organization | | | | + + + + + | [facility] | [address] | [place] [address] | [phone] | + + + + + Renal Function Panel (12/09/2018 5:15 PDT) + + + + + + | Component | Value | Ref Range | Performed | Pathologist | | | | | At | Signature | + + + + + + | Na | 141 | 135 - 145 | [facility] | | | | | mmol/L | LABORATORY | | + + + + + + | K | 4.2 | 3.5 - 4.9 | [facility] | | | | | mmol/L | LABORATORY | | + + + + + + | Cl | 113 (H) | 99 - 109 mmol/L | [facility] | | | | | | LABORATORY | | + + + + + + | CO2 | 22 (L) | 23 - 32 mmol/L | [facility] | | | | | | LABORATORY | | + + + + + + | Anion Gap | 10 | 5 - 20 mmol/L | [facility] | | | | | | LABORATORY | | + + + + + + | Glucose | 112 (H) | 65 - 99 mg/dL | [facility] | | | | | | LABORATORY | | + + + + + + | BUN | 21 | 8 - 25 mg/dL | [facility] | | | | | | LABORATORY | | + + + + + + | Creatinine | 1.0 | 0.50 - 1.00 | [facility] | | | | | mg/dL | LABORATORY | | + + + + + + | Calcium | 8.3 (L) | 8.5 - 10.5 | [facility] | | | | | mg/dL | LABORATORY | | + + + + + + | Albumin | 2.6 (L) | 3.3 - 4.8 g/dL | [facility] | | | | | | LABORATORY | | + + + + + + | Phosphorus | 3.0 | 2.3 - 4.8 mg/dL | [facility] | | | | | | LABORATORY | | + + + + + + | Estimated | 54 (L)Comment: GFR <60: | >60 | [facility] | | | GFR | CHRONIC KIDNEY DISEASE, | mL/min/1.73m2 | LABORATORY | | | | IF FOUND OVER A 3 MONTH | | | | | | PERIOD.GFR <15: KIDNEY | | | | | | FAILURE.FOR | | | | | | AMERICANS, MULTIPLY THE | | | | | | CALCULATED GFR BY | | | | | | 1.210.This eGFR is | | | | | | calculated using the | | | | | | MDRD IDMS traceable | | | | | | equation.Testing | | | | | | performed at [facility], [address] | | | | | | [place], | | | | | | [place] [address] | | | | + + + + + + + + | Specimen | + + | | + + + + + + + | Performing | Address | City/State/Zipcode | Phone Number | | Organization | | | | + + + + + | [facility] | [address] | [place] [address] | [phone] | + + + + + Magnesium (12/09/2018 5:15 PDT) + + + + + + | Component | Value | Ref Range | Performed | Pathologist | | | | | At | Signature | + + + + + + | Magnesium | 2.0Comment: Testing | 1.7 - 2.4 mg/dL | [facility] | | | | performed at [facility], [address] | | LABORATORY | | | | [place], | | | | | | [place] [address] | | | | + + + + + + + + | Specimen | + + | Blood | + + + + + + + | Performing | Address | City/State/Zipcode | Phone Number | | Organization | | | | + + + + + | [facility] | [address] | [place] [address] | [phone] | + + + + + CBC no Differential (12/09/2018 5:15 PDT) + + + + + + | Component | Value | Ref Range | Performed | Pathologist | | | | | At | Signature | + + + + + + | WBC | 4.78 | 3.80 - 11.00 | [facility] | | | | | K/uL | LABORATORY | | + + + + + + | RBC | 2.80 (L) | 3.70 - 5.10 | [facility] | | | | | M/uL | LABORATORY | | + + + + + + | Hemoglobin | 9.1 (L) | 11.3 - 15.5 | [facility] | | | | | g/dL | LABORATORY | | + + + + + + | Hematocrit | 26.3 (L) | 34.0 - 46.0 % | [facility] | | | | | | LABORATORY | | + + + + + + | MCV | 94.0 | 80.0 - 100.0 fl | [facility] | | | | | | LABORATORY | | + + + + + + | MCH | 32.5 | 27.0 - 34.0 pg | [facility] | | | | | | LABORATORY | | + + + + + + | MCHC | 34.6 | 32.0 - 35.5 | [facility] | | | | | g/dL | LABORATORY | | + + + + + + | RDW-SD | 45.5 | 37 - 53 fl | [facility] | | | | | | LABORATORY | | + + + + + + | Platelet | 177 | 150 - 400 K/uL | [facility] | | | Count | | | LABORATORY | | + + + + + + | MPV | 9.4Comment: Testing | fl | [facility] | | | | performed at [facility], [address] | | LABORATORY | | | | [place], | | | | | | [place] [address] | | | | + + + + + + + + | Specimen | + + | Blood | + + + + + + + | Performing | Address | City/State/Zipcode | Phone Number | | Organization | | | | + + + + + | [facility] | [address] | [place] [address] | [phone] | + + + + + TSH (12/09/2018 5:15 PDT) + + + + + + | Component | Value | Ref Range | Performed | Pathologist | | | | | At | Signature | + + + + + + | TSH | 6.780 (H)Comment: | 0.450 - 5.100 | [facility] | | | | Testing performed at | uIU/mL | LABORATORY | | | | [facility], [address] [place] [address] | | | | | | [place] | | | | | | [address] | | | | + + + + + + + + | Specimen | + + | Blood | + + + + + + + | Performing | Address | City/State/Zipcode | Phone Number | | Organization | | | | + + + + + | [facility] | [address] | [place] [address] | [phone] | + + + + + Urinalysis, Microscopic Only (12/08/2018 17:03 PDT) + + + + + + | Component | Value | Ref Range | Performed | Pathologist | | | | | At | Signature | + + + + + + | WBC UA | 11-15Comment: | 0 - 5 /hpf | [facility] | | | | | | LABORATORY | | + + + + + + | RBC UA | 26-49 | 0 - 5 /hpf | [facility] | | | | | | LABORATORY | | + + + + + + | SQUAMOUS | 50-100 | /lpf | [facility] | | | EPITHELIAL | | | LABORATORY | | | UA | | | | | + + + + + + | BACTERIA UA | 1+ (A) | NONE | [facility] | | | | | | LABORATORY | | + + + + + + | MUCUS UA | 1+Comment: Testing | | [facility] | | | | performed at [facility], [address] | | LABORATORY | | | | [place], | | | | | | [place] [address] | | | | + + + + + + + + | Specimen | + + | | + + + + + + + | Performing | Address | City/State/Zipcode | Phone Number | | Organization | | | | + + + + + | [facility] | [address] | [place] [address] | [phone] | + + + + + Urinalysis with Microscopic if Indicated (12/08/2018 17:03 PDT) + + + + + + | Component | Value | Ref Range | Performed | Pathologist | | | | | At | Signature | + + + + + + | Color, UA | YELLOW | | [facility] | | | | | | LABORATORY | | + + + + + + | Clarity, UA | CLEAR | | [facility] | | | | | | LABORATORY | | + + + + + + | Specific | 1.011 | 1.002 - 1.030 | [facility] | | | [place], | | | LABORATORY | | | Urine | | | | | + + + + + + | Leukocyte | LARGE (A)Comment: | NEG | [facility] | | | esterase, | | | LABORATORY | | | UA | | | | | + + + + + + | Nitrite, UA | NEGATIVE | NEG | [facility] | | | | | | LABORATORY | | + + + + + + | Urobilinoge | NORMAL | <1.1 mg/dL | [facility] | | | n, Ur | | | LABORATORY | | + + + + + + | Protein, | NEGATIVE | NEG mg/dL | [facility] | | | Urine | | | LABORATORY | | | (mg/dL) | | | | | + + + + + + | pH, Urine | 5.0 | 5.0 - 8.0 | [facility] | | | | | | LABORATORY | | + + + + + + | Blood, UA | MODERATE (A) | NEG | [facility] | | | | | | LABORATORY | | + + + + + + | Ketones, UA | NEGATIVE | NEG mg/dL | [facility] | | | | | | LABORATORY | | + + + + + + | Bilirubin, | NEGATIVE | NEG | [facility] | | | UA | | | LABORATORY | | + + + + + + | Glucose, Ur | NEGATIVE | NEG mg/dL | [facility] | | | | | | LABORATORY | | + + + + + + + + | Specimen | + + | Urine | + + + + + + + | Performing | Address | City/State/Zipcode | Phone Number | | Organization | | | | + + + + + | [facility] | [address] | [place] [address] | [phone] | + + + + + ECG 12 lead (12/08/2018 7:03 PDT) + + + + + + | Component | Value | Ref Range | Performed | Pathologist | | | | | At | Signature | + + + + + + | VENTRICULAR | 62 | BPM | [facility] | | | RATE EKG | | | | | + + + + + + | ATRIAL RATE | 62 | BPM | [facility] | | + + + + + + | P-R | 172 | ms | [facility] | | | INTERVAL | | | | | + + + + + + | QRS | 74 | ms | [facility] | | | DURATION | | | | | + + + + + + | Q-T | 410 | ms | [facility] | | | INTERVAL | | | | | + + + + + + | Q-T | 416 | ms | [facility] | | | INTERVAL | | | | | | (CORRECTED) | | | | | + + + + + + | P WAVE AXIS | 39 | degrees | [facility] | | + + + + + + | QRS AXIS | 11 | degrees | [facility] | | + + + + + + | T AXIS | 42 | degrees | [facility] | | + + + + + + | INTERPRETAT | Normal sinus rhythmT | | [facility] | | | ION TEXT | wave abnormality, | | | | | | consider anterolateral | | | | | | ischemiaNonspecific ST | | | | | | and/or T wave | | | | | | abnormalitiesAbnormal | | | | | | ECGWhen compared with | | | | | | ECG of 07-DEC-2018 | | | | | | 04:19,Nonspecific T wave | | | | | | abnormality now evident | | | | | | in Inferior | | | | | | leadsConfirmed by | | | | | | SRIDHAR JACKMAN MD ([id number]) | | | | | | on 12/08/2018 2:15:08 PM | | | | + + + + + + + + | Specimen | + + | | + + + + + | Narrative | Performed At | + + + | | | + + + + +---------+ + + | Performing | Address | City/State/Zipcode | Phone Number | | Organization | | | | + +---------+ + + | [facility] | | | | + +---------+ + + Magnesium (12/08/2018 3:19 PDT) + + + + + + | Component | Value | Ref Range | Performed | Pathologist | | | | | At | Signature | + + + + + + | Magnesium | 2.0Comment: Testing | 1.7 - 2.4 mg/dL | [facility] | | | | performed at [facility], [address] | | LABORATORY | | | | [address], | | | | | | [place] [address] | | | | + + + + + + + + | Specimen | + + | Blood | + + + + + + + | Performing | Address | City/State/Zipcode | Phone Number | | Organization | | | | + + + + + | [facility] | [address] | [place] [address] | [phone] | + + + + + Hemoglobin and Hematocrit (12/08/2018 3:19 PDT) + + + + + + | Component | Value | Ref Range | Performed | Pathologist | | | | | At | Signature | + + + + + + | Hemoglobin | 11.2 (L) | 11.3 - 15.5 | [facility] | | | | | g/dL | LABORATORY | | + + + + + + | Hematocrit | 32.7 (L)Comment: Testing | 34.0 - 46.0 % | [facility] | | | | performed at [facility], [address] | | LABORATORY | | | | [address], | | | | | | [place] [address] | | | | + + + + + + + + | Specimen | + + | Blood | + + + + + + + | Performing | Address | City/State/Zipcode | Phone Number | | Organization | | | | + + + + + | [facility] | [address] | [place] [address] | [phone] | + + + + + Basic Metabolic Panel (12/08/2018 3:19 PDT) + + + + + + | Component | Value | Ref Range | Performed | Pathologist | | | | | At | Signature | + + + + + + | Na | 142 | 135 - 145 | [facility] | | | | | mmol/L | LABORATORY | | + + + + + + | K | 4.4 | 3.5 - 4.9 | [facility] | | | | | mmol/L | LABORATORY | | + + + + + + | Cl | 112 (H) | 99 - 109 mmol/L | [facility] | | | | | | LABORATORY | | + + + + + + | CO2 | 22 (L) | 23 - 32 mmol/L | [facility] | | | | | | LABORATORY | | + + + + + + | Anion Gap | 12 | 5 - 20 mmol/L | [facility] | | | | | | LABORATORY | | + + + + + + | Glucose | 90 | 65 - 99 mg/dL | [facility] | | | | | | LABORATORY | | + + + + + + | BUN | 22 | 8 - 25 mg/dL | [facility] | | | | | | LABORATORY | | + + + + + + | Creatinine | 1.1 (H) | 0.50 - 1.00 | [facility] | | | | | mg/dL | LABORATORY | | + + + + + + | BUN/Creatin | 20 | | [facility] | | | ine Ratio | | | LABORATORY | | + + + + + + | Calcium | 8.0 (L) | 8.5 - 10.5 | [facility] | | | | | mg/dL | LABORATORY | | + + + + + + | Estimated | 48 (L)Comment: GFR <60: | >60 | [facility] | | | GFR | CHRONIC KIDNEY DISEASE, | mL/min/1.73m2 | LABORATORY | | | | IF FOUND OVER A 3 MONTH | | | | | | PERIOD.GFR <15: KIDNEY | | | | | | FAILURE.FOR | | | | | | AMERICANS, MULTIPLY THE | | | | | | CALCULATED GFR BY | | | | | | 1.210.This eGFR is | | | | | | calculated using the | | | | | | MDRD IDMS traceable | | | | | | equation.Testing | | | | | | performed at [facility], [address] | | | | | | [facility], | | | | | | [place] [address] | | | | + + + + + + + + | Specimen | + + | Blood | + + + + + + + | Performing | Address | City/State/Zipcode | Phone Number | | Organization | | | | + + + + + | [facility] | [address] | [place] [address] | [phone] | + + + + + Troponin I (12/08/2018 3:18 PDT) + + + + + + | Component | Value | Ref Range | Performed | Pathologist | | | | | At | Signature | + + + + + + | Troponin I | 0.082 (H)Comment: 0.04 | 0.00 - 0.04 | [facility] | | | | ng/mL or | ng/mL | LABORATORY | | | | less Nega | | | | | | tive, repeat testing in | | | | | | four to six hour | | | | | | ifclinically | | | | | | indicted0.05 to 0.77 | | | | | | ng/mL [place] | | | | | | picious for myocardial | | | | | | injury. Serial | | | | | | measurementsmay be | | | | | | necessary to confirm or | | | | | | exclude the diagnosis of | | | | | | acute coronarysyndrome. | | | | | | Repeat testing in four | | | | | | to six hours if | | | | | | indicated.0.78 or | | | | | | greater | | | | | | ng/mL Consistent | | | | | | with myocardial injury. | | | | | | Clinical andlaboratory | | | | | | correlation recommended. | | | | | | Testing performed at | | | | | | [facility];[address] | | | | | | [facility];[place] [address] | | | | + + + + + + + + | Specimen | + + | Blood | + + + + + + + | Performing | Address | City/State/Zipcode | Phone Number | | Organization | | | | + + + + + | [facility] | [address] | [place] [address] | [phone] | + + + + + Troponin I (12/07/2018 19:25 PDT) + + + + + + | Component | Value | Ref Range | Performed | Pathologist | | | | | At | Signature | + + + + + + | Troponin I | 0.081 (H)Comment: 0.04 | 0.00 - 0.04 | [facility] | | | | ng/mL or | ng/mL | LABORATORY | | | | less Nega | | | | | | tive, repeat testing in | | | | | | four to six hour | | | | | | ifclinically | | | | | | indicted0.05 to 0.77 | | | | | | ng/mL [place] | | | | | | picious for myocardial | | | | | | injury. Serial | | | | | | measurementsmay be | | | | | | necessary to confirm or | | | | | | exclude the diagnosis of | | | | | | acute coronarysyndrome. | | | | | | Repeat testing in four | | | | | | to six hours if | | | | | | indicated.0.78 or | | | | | | greater | | | | | | ng/mL Consistent | | | | | | with myocardial injury. | | | | | | Clinical andlaboratory | | | | | | correlation recommended. | | | | | | Testing performed at | | | | | | [facility];[address];[place] [address] | | | | + + + + + + + + | Specimen | + + | Blood | + + + + + + + | Performing | Address | City/State/Zipcode | Phone Number | | Organization | | | | + + + + + | [facility] | [address] | [place] [address] | [phone] | + + + + + Hemoglobin and Hematocrit (12/07/2018 19:25 PDT) + + + + + + | Component | Value | Ref Range | Performed | Pathologist | | | | | At | Signature | + + + + + + | Hemoglobin | 10.7 (L) | 11.3 - 15.5 | [facility] | | | | | g/dL | LABORATORY | | + + + + + + | Hematocrit | 30.2 (L)Comment: Testing | 34.0 - 46.0 % | [facility] | | | | performed at [facility];[address] | | LABORATORY | | | | [address];[place] | | | | | | [address] | | | | + + + + + + + + | Specimen | + + | Blood | + + + + + + + | Performing | Address | City/State/Zipcode | Phone Number | | Organization | | | | + + + + + | [facility] | [address] | [place] [address] | [phone] | + + + + + ECHO Complete (12/07/2018 17:07 PDT) + +--------+ + + + | Component | Value | Ref Range | Performed | Pathologist | | | | | At | Signature | + +--------+ + + + | LVEF-TTE | 65 | % | [facility] | | | TRANSTHORAC | | | | | | IC ECHO | | | | | + +--------+ + + + | BASELINE | 106/53 | mmHg | [facility] | | | BLOOD | | | | | | PRESSURE | | | | | + +--------+ + + + | Patient | 187 | | [facility] | | | Weight | | | | | | (lbs) | | | | | + +--------+ + + + | Patient | 61 | | [facility] | | | Height | | | | | + +--------+ + + + | Inferior | 1.33 | cm | [facility] | | | Vena Cava | | | | | | Diameter at | | | | | | Expiration | | | | | + +--------+ + + + | RA PRESSURE | 3 | mmHg | [facility] | | + +--------+ + + + | LVIDd | 4.48 | cm | [facility] | | + +--------+ + + + | FS | 44 | % | [facility] | | + +--------+ + + + | LA volume | 52.14 | mL | [facility] | | + +--------+ + + + | Ascending | 2.92 | cm | [facility] | | | aorta | | | | | + +--------+ + + + | AV mean | 7.66 | mmHg | [facility] | | | gradient | | | | | + +--------+ + + + | Aortic | 2.32 | cm2 | [facility] | | | Valve Area | | | | | | by | | | | | | Continuity | | | | | | VTI | | | | | + +--------+ + + + | PV peak | 2 | mmHg | [facility] | | | gradient | | | | | + +--------+ + + + | LVOT | 2.02 | cm | [facility] | | | diameter | | | | | + +--------+ + + + | LVOT peak | 126.22 | cm/s | [facility] | | | ruthie | | | | | + +--------+ + + + | LVOT peak | 31.87 | cm | [facility] | | | VTI | | | | | + +--------+ + + + | AV peak ruthie | 190.11 | cm/s | [facility] | | + +--------+ + + + | AV VTI | 44.06 | cm | [facility] | | + +--------+ + + + | AV peak | 14.46 | mmHg | [facility] | | | gradient | | | | | + +--------+ + + + | TV peak | 0.74 | mmHg | [facility] | | | gradient | | | | | + +--------+ + + + | PV mean | 1.27 | mmHg | [facility] | | | gradient | | | | | + +--------+ + + + | LA Volume | 28 | mL/m2 | [facility] | | | Index | | | | | + +--------+ + + + | AV LVOT | 6.37 | mmHg | [facility] | | | Peak | | | | | | Gradient | | | | | + +--------+ + + + | AV LVOT | 3.29 | mmHg | [facility] | | | Mean | | | | | | Gradient | | | | | + +--------+ + + + | RV Free | 11.87 | cm/s | [facility] | | | Wall Peak | | | | | | S' | | | | | + +--------+ + + + | PI Peak | 70.69 | cm/s | [facility] | | | Velocity | | | | | + +--------+ + + + | LV | 6.69 | cm | [facility] | | | Diastolic | | | | | | Length 4C | | | | | + +--------+ + + + | RV | 3.67 | cm | [facility] | | | Diastolic | | | | | | Basal | | | | | | Diameter | | | | | + +--------+ + + + | LV | 65 | % | [facility] | | | Bragg's | | | | | | Biplane EF | | | | | + +--------+ + + + | LV ED | 52.63 | ml | [facility] | | | Volume | | | | | | (Bragg's) | | | | | + +--------+ + + + | LV ED | 29 | ml/m2 | [facility] | | | Volume | | | | | | Index | | | | | + +--------+ + + + | LV ES | 18.65 | ml | [facility] | | | Volume | | | | | + +--------+ + + + | LVOT Mean | 84.59 | cm/s | [facility] | | | Velocity | | | | | + +--------+ + + + | MV | 207.35 | msec | [facility] | | | Deceleratio | | | | | | n Time | | | | | + +--------+ + + + | MV E/A | 0.8 | | [facility] | | | Ratio | | | | | + +--------+ + + + | MV Peak | 123.01 | cm/s | [facility] | | | A-Wave | | | | | + +--------+ + + + | MV Peak | 97.94 | cm/s | [facility] | | | E-Wave | | | | | + +--------+ + + + | TV | 212.57 | msec | [facility] | | | Deceleratio | | | | | | n Time | | | | | + +--------+ + + + | TV Peak | 40.2 | cm/s | [facility] | | | A-Wave | | | | | + +--------+ + + + | TV Peak | 43.06 | cm/s | [facility] | | | E-Wave | | | | | + +--------+ + + + | PV Mean | 54.95 | cm/s | [facility] | | | Velocity | | | | | + +--------+ + + + | AV Mean | 131.92 | cm/s | [facility] | | | Velocity | | | | | + +--------+ + + + | LA Area | 19.5 | cm2 | [facility] | | + +--------+ + + + | LA Major | 0.4406 | cm | [facility] | | + +--------+ + + + | LV ES | 10 | ml/m2 | [facility] | | | Volume | | | | | | Index | | | | | + +--------+ + + + | Heart Rate | 54 | | [facility] | | + +--------+ + + + | IVS | 0.86 | cm | [facility] | | | Diastolic | | | | | | Thickness | | | | | | MM | | | | | + +--------+ + + + | LVPW | 0.86 | cm | [facility] | | | Diastolic | | | | | | Thickness | | | | | | MM | | | | | + +--------+ + + + | IVS | 1.54 | cm | [facility] | | | Systolic | | | | | | Thickness | | | | | | MM | | | | | + +--------+ + + + | LV Systolic | 2.52 | cm | [facility] | | | Diameter | | | | | | MM | | | | | + +--------+ + + + | LVPW | 1.32 | cm | [facility] | | | Systolic | | | | | | Thickness | | | | | | MM | | | | | + +--------+ + + + | TAPSE | 1.7 | cm | [facility] | | + +--------+ + + + + + | Specimen | + + | | + + + + + | Narrative | Performed At | + + + | | [facility] | | Normal size left ventricle. | | | There is normal left ventricular wall thickness. | | | The left ventricular ejection fraction is 65%. | | | There is normal left ventricular wall motion. | | | Normal size right ventricle. | | | Normal right ventricular systolic function. | | | There is no pericardial effusion. | | + + + + +---------+ + + | Performing | Address | City/State/Zipcode | Phone Number | | Organization | | | | + +---------+ + + | [facility] | | | | + +---------+ + + Troponin I (12/07/2018 14:25 PDT) + + + + + + | Component | Value | Ref Range | Performed | Pathologist | | | | | At | Signature | + + + + + + | Troponin I | 0.054 (H)Comment: 0.04 | 0.00 - 0.04 | [facility] | | | | ng/mL or | ng/mL | LABORATORY | | | | less Nega | | | | | | tive, repeat testing in | | | | | | four to six hour | | | | | | ifclinically | | | | | | indicted0.05 to 0.77 | | | | | | ng/mL [place] | | | | | | picious for myocardial | | | | | | injury. Serial | | | | | | measurementsmay be | | | | | | necessary to confirm or | | | | | | exclude the diagnosis of | | | | | | acute coronarysyndrome. | | | | | | Repeat testing in four | | | | | | to six hours if | | | | | | indicated.0.78 or | | | | | | greater | | | | | | ng/mL Consistent | | | | | | with myocardial injury. | | | | | | Clinical andlaboratory | | | | | | correlation recommended. | | | | | | Testing performed at | | | | | | [facility];[address] [facility] | | | | | | [facility];[place] [address] | | | | + + + + + + + + | Specimen | + + | Blood | + + + + + + + | Performing | Address | City/State/Zipcode | Phone Number | | Organization | | | | + + + + + | [facility] | [address] | [place] [address] | [phone] | + + + + + Troponin I (12/07/2018 11:32 PDT) + + + + + + | Component | Value | Ref Range | Performed | Pathologist | | | | | At | Signature | + + + + + + | Troponin I | 0.04Comment: 0.04 | 0.00 - 0.04 | [facility] | | | | ng/mL or | ng/mL | LABORATORY | | | | less Nega | | | | | | tive, repeat testing in | | | | | | four to six hour | | | | | | ifclinically | | | | | | indicted0.05 to 0.77 | | | | | | ng/mL [place] | | | | | | picious for myocardial | | | | | | injury. Serial | | | | | | measurementsmay be | | | | | | necessary to confirm or | | | | | | exclude the diagnosis of | | | | | | acute coronarysyndrome. | | | | | | Repeat testing in four | | | | | | to six hours if | | | | | | indicated.0.78 or | | | | | | greater | | | | | | ng/mL Consistent | | | | | | with myocardial injury. | | | | | | Clinical andlaboratory | | | | | | correlation recommended. | | | | | | Testing performed at | | | | | | [facility];[address];[place] [address] | | | | + + + + + + + + | Specimen | + + | Blood | + + + + + + + | Performing | Address | City/State/Zipcode | Phone Number | | Organization | | | | + + + + + | [facility] | [address] | [place] [address] | [phone] | + + + + + Hemoglobin and Hematocrit (12/07/2018 11:32 PDT) + + + + + + | Component | Value | Ref Range | Performed | Pathologist | | | | | At | Signature | + + + + + + | Hemoglobin | 11.2 (L) | 11.3 - 15.5 | [facility] | | | | | g/dL | LABORATORY | | + + + + + + | Hematocrit | 32.7 (L)Comment: Testing | 34.0 - 46.0 % | [facility] | | | | performed at [facility], [address] | LABORATORY | | | | [address], | | | | | | [place] [address] | | | | + + + + + + + + | Specimen | + + | Blood | + + + + + + + | Performing | Address | City/State/Zipcode | Phone Number | | Organization | | | | + + + + + | [facility] | [address] | [place] [address] | [phone] | + + + + + Lipid Panel (12/07/2018 11:32 PDT) + + + + + + | Component | Value | Ref Range | Performed | Pathologist | | | | | At | Signature | + + + + + + | Cholesterol | 97 | <200 mg/dL | [facility] | | | | | | LABORATORY | | + + + + + + | Triglycerid | 104 | <150 mg/dL | [facility] | | | es | | | LABORATORY | | + + + + + + | HDL | 41 | >40 mg/dL | [facility] | | | | | | LABORATORY | | + + + + + + | LDL, | 35Comment: Testing | <100 mg/dL | [facility] | | | Calculated | performed at [facility], [address] | | LABORATORY | | | | [address], | | | | | | [place] [address] | | | | + + + + + + + + | Specimen | + + | Blood | + + + + + + + | Performing | Address | City/State/Zipcode | Phone Number | | Organization | | | | + + + + + | [facility] | [address] | [place] [address] | [phone] | + + + + + Troponin I (12/07/2018 4:26 PDT) + + + + + + | Component | Value | Ref Range | Performed | Pathologist | | | | | At | Signature | + + + + + + | Troponin I | 0.019Comment: 0.04 | 0.00 - 0.04 | [facility] | | | | ng/mL or | ng/mL | LABORATORY | | | | less Nega | | | | | | tive, repeat testing in | | | | | | four to six hour | | | | | | ifclinically | | | | | | indicted0.05 to 0.77 | | | | | | ng/mL [place] | | | | | | picious for myocardial | | | | | | injury. Serial | | | | | | measurementsmay be | | | | | | necessary to confirm or | | | | | | exclude the diagnosis of | | | | | | acute coronarysyndrome. | | | | | | Repeat testing in four | | | | | | to six hours if | | | | | | indicated.0.78 or | | | | | | greater | | | | | | ng/mL Consistent | | | | | | with myocardial injury. | | | | | | Clinical andlaboratory | | | | | | correlation recommended. | | | | | | Testing performed at | | | | | | [facility];[address] [place] [address] | | | | | | [facility];[place] [address] | | | | + + + + + + + + | Specimen | + + | Blood | + + + + + + + | Performing | Address | City/State/Zipcode | Phone Number | | Organization | | | | + + + + + | [facility] | [address] | [place] [address] | [phone] | + + + + + Comprehensive Metabolic Panel (12/07/2018 4:26 PDT) + + + + + + | Component | Value | Ref Range | Performed | Pathologist | | | | | At | Signature | + + + + + + | Na | 142 | 135 - 145 | [facility] | | | | | mmol/L | LABORATORY | | + + + + + + | K | 4.3 | 3.5 - 4.9 | [facility] | | | | | mmol/L | LABORATORY | | + + + + + + | Cl | 112 (H) | 99 - 109 mmol/L | [facility] | | | | | | LABORATORY | | + + + + + + | CO2 | 21 (L) | 23 - 32 mmol/L | [facility] | | | | | | LABORATORY | | + + + + + + | Anion Gap | 13 | 5 - 20 mmol/L | [facility] | | | | | | LABORATORY | | + + + + + + | Glucose | 111 (H) | 65 - 99 mg/dL | [facility] | | | | | | LABORATORY | | + + + + + + | BUN | 13 | 8 - 25 mg/dL | [facility] | | | | | | LABORATORY | | + + + + + + | Creatinine | 0.84 | 0.50 - 1.00 | [facility] | | | | | mg/dL | LABORATORY | | + + + + + + | BUN/Creatin | 15 | | [facility] | | | ine Ratio | | | LABORATORY | | + + + + + + | Calcium | 8.9 | 8.5 - 10.5 | [facility] | | | | | mg/dL | LABORATORY | | + + + + + + | Protein, | 6.4 | 6.3 - 8.2 g/dL | [facility] | | | Total | | | LABORATORY | | + + + + + + | Albumin | 4.1 | 3.3 - 4.8 g/dL | [facility] | | | | | | LABORATORY | | + + + + + + | Globulin | 2.3 | 1.3 - 4.9 g/dL | [facility] | | | | | | LABORATORY | | + + + + + + | A/G Ratio | 1.8 | 1.0 - 2.4 | [facility] | | | | | | LABORATORY | | + + + + + + | BILIRUBIN, | 1.1 | 0.1 - 1.5 mg/dL | [facility] | | | TOTAL | | | LABORATORY | | + + + + + + | ALK PHOS | 97 | 35 - 115 U/L | [facility] | | | | | | LABORATORY | | + + + + + + | AST | 24 | 10 - 45 U/L | [facility] | | | | | | LABORATORY | | + + + + + + | ALT | 22 | 10 - 65 U/L | [facility] | | | | | | LABORATORY | | + + + + + + | Estimated | >60Comment: GFR <60: | >60 | [facility] | | | GFR | CHRONIC KIDNEY DISEASE, | mL/min/1.73m2 | LABORATORY | | | | IF FOUND OVER A 3 MONTH | | | | | | PERIOD.GFR <15: KIDNEY | | | | | | FAILURE.FOR | | | | | | AMERICANS, MULTIPLY THE | | | | | | CALCULATED GFR BY | | | | | | 1.210.This eGFR is | | | | | | calculated using the | | | | | | MDRD IDMS traceable | | | | | | equation.Testing | | | | | | performed at [facility];[address] | | | | | | [facility];[place], [place] | | | | | | [id number] | | | | + + + + + + + + | Specimen | + + | Blood | + + + + + + + | Performing | Address | City/State/Zipcode | Phone Number | | Organization | | | | + + + + + | [facility] | [address] | [place] [address] | [phone] | + + + + + CBC with Differential (12/07/2018 4:26 PDT) + + + + + + | Component | Value | Ref Range | Performed | Pathologist | | | | | At | Signature | + + + + + + | WBC | 6.85 | 3.80 - 11.00 | [facility] | | | | | K/uL | LABORATORY | | + + + + + + | RBC | 3.81 | 3.70 - 5.10 | [facility] | | | | | M/uL | LABORATORY | | + + + + + + | Hemoglobin | 12.0 | 11.3 - 15.5 | [facility] | | | | | g/dL | LABORATORY | | + + + + + + | Hematocrit | 34.4 | 34.0 - 46.0 % | [facility] | | | | | | LABORATORY | | + + + + + + | MCV | 90.3 | 80.0 - 100.0 fl | [facility] | | | | | | LABORATORY | | + + + + + + | MCH | 31.4 | 27.0 - 34.0 pg | [facility] | | | | | | LABORATORY | | + + + + + + | MCHC | 34.7 | 32.0 - 35.5 | [facility] | | | | | g/dL | LABORATORY | | + + + + + + | RDW-SD | 45.1 | 37 - 53 fl | [facility] | | | | | | LABORATORY | | + + + + + + | Platelet | 206 | 150 - 400 K/uL | [facility] | | | Count | | | LABORATORY | | + + + + + + | MPV | 8.5 | fl | [facility] | | | | | | LABORATORY | | + + + + + + | Diff Type | AUTOMATED | | [facility] | | | | | | LABORATORY | | + + + + + + | % | 56.15 | % | [facility] | | | Neutrophils | | | LABORATORY | | + + + + + + | % | 34.94 | % | [facility] | | | Lymphocytes | | | LABORATORY | | + + + + + + | Monocyte % | 6.64 | % | [facility] | | | | | | LABORATORY | | + + + + + + | Eosinophils | 1.60 | % | [facility] | | | % | | | LABORATORY | | + + + + + + | Basophils % | 0.67 | % | [facility] | | | | | | LABORATORY | | + + + + + + | Neutrophils | 3.85 | 1.90 - 7.40 | [facility] | | | , Absolute | | K/uL | LABORATORY | | + + + + + + | Absolute | 2.39 | 1.00 - 3.90 | [facility] | | | Lymphocytes | | K/uL | LABORATORY | | + + + + + + | Absolute | 0.46 | 0.00 - 0.80 | [facility] | | | Monocytes | | K/uL | LABORATORY | | + + + + + + | Eosinophils | 0.11 | 0.00 - 0.50 | [facility] | | | , Absolute | | K/uL | LABORATORY | | + + + + + + | Basophils, | 0.05Comment: Testing | 0.00 - 0.10 | JEAN MARIE | | | Absolute | performed at [facility] [place];[address] | K[address]uL | LABORATORY | | | | [address];[place] | | | | | | [address] | | | | + + + + + + + + | Specimen | + + | Blood | + + + + + + + | Performing | Address | City/State/Zipcode | Phone Number | | Organization | | | | + + + + + | [facility] | [address] | [place] [address] | [phone] | + + + + + ECG 12 lead (12/07/2018 4:19 PDT) + + + + + + | Component | Value | Ref Range | Performed | Pathologist | | | | | At | Signature | + + + + + + | VENTRICULAR | 59 | BPM | [facility] | | | RATE EKG | | | | | + + + + + + | ATRIAL RATE | 59 | BPM | [facility] | | + + + + + + | P-R | 176 | ms | [facility] | | | INTERVAL | | | | | + + + + + + | QRS | 84 | ms | [facility] | | | DURATION | | | | | + + + + + + | Q-T | 440 | ms | [facility] | | | INTERVAL | | | | | + + + + + + | Q-T | 435 | ms | [facility] | | | INTERVAL | | | | | | (CORRECTED) | | | | | + + + + + + | P WAVE AXIS | 55 | degrees | [facility] | | + + + + + + | QRS AXIS | 26 | degrees | [facility] | | + + + + + + | T AXIS | 109 | degrees | [facility] | | + + + + + + | INTERPRETAT | Sinus bradycardiaST & T | | [facility] | | | ION TEXT | wave abnormality, | | | | | | consider anterolateral | | | | | | ischemiaAbnormal ECGNo | | | | | | previous ECGs | | | | | | availableThis ECG | | | | | | contains Unconfirmed | | | | | | Interpretation | | | | | | Statements. See ED | | | | | | Record for Physician | | | | | | Interpretation. | | | | | | Confirmed by MUSE READ | | | | | | ONLY, -COMPUTER ([id number]), | | | | | | editor map José Miguel Saenz | | | | | | (132) on 12/07/2018 | | | | | | 2:16:55 PM | | | | + + + + + + + + | Specimen | + + | | + + + + + | Narrative | Performed At | + + + | | | + + + + +---------+ + + | Performing | Address | City/State/Zipcode | Phone Number | | Organization | | | | + +---------+ + + | [facility] | | | | + +---------+ + + documented in this encounter Visit Diagnoses + + | Diagnosis | + + | Angina of effort (HCC) - Primary Other and unspecified angina pectoris | + + | Melena Blood in stool | + + | Coronary artery disease involving [place] coronary artery, angina presence unspecified, | | unspecified whether [place]-c[place] or transplanted heart | + + | S/P angioplasty with stent Postsurgical percutaneous transluminal coronary | | angioplasty status | + + | Chest pain, unspecified type | + + | T wave inversion in EKG Nonspecific abnormal electrocardiogram (ECG) (EKG) | + + | Upper GI bleed Hemorrhage of gastrointestinal tract, unspecified | + + | CORONARY ARTERY SPASM Other and unspecified angina pectoris | + + | HYPERTENSION, BENIGN ESSENTIAL Essential hypertension, benign | + + | Hypothyroidism Unspecified hypothyroidism | + + | Asthma Unspecified asthma | + + | Esophageal reflux | + + | Acute blood loss anemia Acute posthemorrhagic anemia | + + documented in this encounter Admitting Diagnoses + + | Diagnosis | + + | Melena Blood in stool | + + | Coronary artery disease involving [place] coronary artery, angina presence unspecified, | | unspecified whether [place] or transplanted heart | + + documented in this encounter Administered Medications + +--------+ +--------+------+------+ | Medication Order | MAR | Action | Dose | Rate | Site | | | Action | Date | | | | + +--------+ +--------+------+------+ | acetaminophen (TYLENOL) tablet | Given | 12/10/19 | 650 mg | | | | 650 mg 650 mg, Oral, EVERY 4 | | 19 3:46 | | | | | HOURS PRN, Pain, Starting Sun | | PDT | | | | | 12/07/18 at 2044 | | | | | | + +--------+ +--------+------+------+ +-------+ +--------+---+---+ | Given | 12/08/19 | 650 mg | | | | | 19 21:14 | | | | | | PDT | | | | +-------+ +--------+---+---+ +---+---+ | | | +---+---+ + +-------+ +--------+---+---+ | ascorbic acid (VITAMIN C) | Given | 12/12/19 | 500 mg | | | | tablet 500 mg 500 mg, Oral, | | 19 9:02 | | | | | DAILY, First dose on Sat12/10/18 | | PDT | | | | | at 1345 | | | | | | + +-------+ +--------+---+---+ +-------+ +--------+---+---+ | Given | 12/11/19 | 500 mg | | | | | 19 15:44 | | | | | | PDT | | | | +-------+ +--------+---+---+ +---+---+ | | | +---+---+ + +-------+ +-------+---+---+ | aspirin EC tablet 81 mg 81 mg, | Given | 12/12/19 | 81 mg | | | | Oral, DAILY, First dose on Sun | | 19 9:01 | | | | | 12/07/18 at 1200 | | PDT | | | | + +-------+ +-------+---+---+ +-------+ +-------+---+---+ | Given | 12/11/19 | 81 mg | | | | | 19 10:12 | | | | | | PDT | | | | +-------+ +-------+---+---+ | Given | 12/10/19 | 81 mg | | | | | 19 9:03 | | | | | | PDT | | | | +-------+ +-------+---+---+ +---+---+ | | | +---+---+ + +-------+ +-------+---+---+ | atorvaSTATin (LIPITOR) tablet | Given | 12/11/19 | 80 mg | | | | 80 mg 80 mg, Oral, NIGHTLY, | | 19 20:23 | | | | | First dose on 12/07/18 at 2100 | | PDT | | | | + +-------+ +-------+---+---+ +-------+ +-------+---+---+ | Given | 12/10/19 | 80 mg | | | | | 19 23:01 | | | | | | PDT | | | | +-------+ +-------+---+---+ | Given | 12/09/19 | 80 mg | | | | | 19 20:57 | | | | | | PDT | | | | +-------+ +-------+---+---+ + +---+ | | | + +---+ | docusate sodium (COLACE) | | | capsule 100 mg 100 mg, Oral, 2 | | | TIMES DAILY PRN, Constipation, | | | Starting 9/11/19 at 1316, | | | Swallow capsule whole., | | + +---+ | | | + +---+ + +-------+ +--------+---+---+ | ferrous sulfate tablet 325 mg | Given | 12/12/19 | 325 mg | | | | 325 mg, Oral, 2 TIMES DAILY WITH | | 19 9:02 | | | | | BREAKFAST & DINNER, First dose on | | PDT | | | | | 12/10/18 at 1700 | | | | | | + +-------+ +--------+---+---+ +-------+ +--------+---+---+ | Given | 12/11/19 | 325 mg | | | | | 19 15:43 | | | | | | PDT | | | | +-------+ +--------+---+---+ +---+---+ | | | +---+---+ + +-------+ +--------+---+---+ | isosorbide mononitrate ER | Given | 12/12/19 | 120 mg | | | | tablet 120 mg 120 mg, Oral, | | 19 9:01 | | | | | DAILY, First dose on 12/08/18 | | PDT | | | | | at 1000, Tablet may be cut where | | | | | | | scored but do not crush., | | | | | | + +-------+ +--------+---+---+ +-------+ +--------+---+---+ | Given | 12/11/19 | 120 mg | | | | | 19 10:11 | | | | | | PDT | | | | +-------+ +--------+---+---+ | Given | 12/10/19 | 120 mg | | | | | 19 9:04 | | | | | | PDT | | | | +-------+ +--------+---+---+ +---+---+ | | | +---+---+ + +-------+ +-------+---+---+ | isosorbide mononitrate ER | Given | 12/08/19 | 60 mg | | | | tablet 60 mg 60 mg, Oral, DAILY, | | 19 10:15 | | | | | First dose on 12/07/18 at | | PDT | | | | | 1000, Tablet may be cut where | | | | | | | scored but do not crush., | | | | | | + +-------+ +-------+---+---+ +---+---+ | | | +---+---+ + +-------+ +--------+---+---+ | lisinopril (PRINIVIL, ZESTRIL) | Given | 12/12/19 | 2.5 mg | | | | tablet 2.5 mg 2.5 mg, Oral, | | 19 9:01 | | | | | DAILY, First dose on 12/07/18 | | PDT | | | | | at 1200 | | | | | | + +-------+ +--------+---+---+ +-------+ +--------+---+---+ | Given | 12/11/19 | 2.5 mg | | | | | 19 10:11 | | | | | | PDT | | | | +-------+ +--------+---+---+ | Given | 12/10/19 | 2.5 mg | | | | | 19 9:07 | | | | | | PDT | | | | +-------+ +--------+---+---+ +---+---+ | | | +---+---+ + +-------+ +------+---+---+ | melatonin tablet 3 mg 3 mg, | Given | 12/11/19 | 3 mg | | | | Oral, NIGHTLY, First dose on Sun | | 19 20:21 | | | | | 12/07/18 at 2100 | | PDT | | | | + +-------+ +------+---+---+ +-------+ +------+---+---+ | Given | 12/10/19 | 3 mg | | | | | 19 23:02 | | | | | | PDT | | | | +-------+ +------+---+---+ | Given | 12/09/19 | 3 mg | | | | | 19 20:57 | | | | | | PDT | | | | +-------+ +------+---+---+ +---+---+ | | | +---+---+ + +-------+ +------+---+---+ | morphine injection 2 mg 2 mg, | Given | 12/08/19 | 2 mg | | | | Intravenous, ONCE, 12/07/18 at | | 19 8:02 | | | | | 0755, For 1 dose | | PDT | | | | + +-------+ +------+---+---+ +---+---+ | | | +---+---+ + +-------+ +------+---+---+ | morphine injection 2-6 mg 2-6 | Given | 12/09/19 | 2 mg | | | | mg, Intravenous, EVERY 2 HOURS | | 19 8:54 | | | | | PRN, Pain, Starting 12/07/18 at | | PDT | | | | | 1058, Slow IV push, not faster | | | | | | | than 2 mg/minute. If ineffective | | | | | | | or not tolerated, use | | | | | | | hydromorphone IV if ordered, | | | | | | + +-------+ +------+---+---+ +---+---+ | | | +---+---+ + +-------+ +------+---+---+ | morphine injection 4 mg 4 mg, | Given | 12/08/19 | 4 mg | | | | Intravenous, ONCE, 12/07/18 at | | 19 4:32 | | | | | 0435, For 1 dose | | PDT | | | | + +-------+ +------+---+---+ +---+---+ | | | +---+---+ + +-------+ +--------+---+---+ | nitroglycerin (NITRO-BID) 2% | Given | 12/08/19 | 1 inch | | | | ointment 1 inch 1 inch, Topical, | | 19 4:19 | | | | | ONCE, 12/07/18 at 0420, For 1 | | PDT | | | | | dose | | | | | | + +-------+ +--------+---+---+ +---+---+ | | | +---+---+ + +-------+ +--------+---+---+ | nitroglycerin (NITROSTAT) SL | Given | 12/10/19 | 0.4 mg | | | | tablet 0.4 mg 0.4 mg, | | 19 22:56 | | | | | Sublingual, EVERY 5 MIN PRN, | | PDT | | | | | Chest pain, Starting 12/07/18 | | | | | | | at 1058, Maximum of 3 doses in 15 | | | | | | | minutes., | | | | | | + +-------+ +--------+---+---+ + +---+ | | | + +---+ | ondansetron (ZOFRAN ODT) | | | disintegrating tablet 4 mg 4 mg, | | | Oral, EVERY 6 HOURS PRN, Nausea, | | | Vomiting, Starting 12/07/18 at | | | 1058, First line agent, | | + +---+ | | | + +---+ + +-------+ +------+---+---+ | ondansetron (ZOFRAN) injection | Given | 09/08/20 | 4 mg | | | | 4 mg 4 mg, Intravenous, ONCE, | | 19 4:32 | | | | | [place] 12/07/18 at 0435, For 1 dose | | PDT | | | | + +-------+ +------+---+---+ + +---+ | | | + +---+ | ondansetron (ZOFRAN) injection | | | 4 mg 4 mg, Intravenous, EVERY 6 | | | HOURS PRN, Nausea, Vomiting, | | | Starting [place] 12/07/18 at 1058, | | | First line agent. Use PO option | | | unless NPO status or unable to | | | tolerate., | | + +---+ | | | + +---+ | pantoprazole (PROTONIX) DR | | | tablet 40 mg 40 mg, Oral, 2 | | | TIMES DAILY BEFORE MEALS, First | | | dose on [facility] 12/11/18 at 1630, Do | | | not cut or crush., Indication: | | | Bleeding, occult | | + +---+ | | | + +---+ + +-------+ +-------+---+---+ | pantoprazole (PROTONIX) | Given | 12/12/19 | 40 mg | | | | injection 40 mg 40 mg, | | 19 9:01 | | | | | Intravenous, 2 TIMES DAILY, First | | PDT | | | | | dose on 12/07/18 at 1200, | | | | | | | Dilute each 40 mg with 10 mL NS | | | | | | | and administer dose over 2 | | | | | | | minutes., Indication: Bleed, | | | | | | | upper GI | | | | | | + +-------+ +-------+---+---+ +-------+ +-------+---+---+ | Given | 12/11/19 | 40 mg | | | | | 19 20:23 | | | | | | PDT | | | | +-------+ +-------+---+---+ | Given | 12/11/19 | 40 mg | | | | | 19 10:12 | | | | | | PDT | | | | +-------+ +-------+---+---+ +---+---+ | | | +---+---+ + +-------+ +--------+---+---+ | polyethylene glycol (GOLYTELY) | Given | 12/10/19 | 2,000 | | | | suspension 2,000 mL 2,000 mL, | | 19 18:46 | mLs | | | | Oral, ONCE, 12/09/18 at 1715, | | PDT | | | | | For 1 dose, Give 240 mL every 10 | | | | | | | minutes until the ordered volume | | | | | | | is consumed or the rectal | | | | | | | effluent is clear. Give 2 L of | | | | | | | GoLYTELY at 5 PM today and 2 L at | | | | | | | 11 PM tonight. N.p.o. when | | | | | | | GoLYTELY is finished. Clear | | | | | | | liquids p.o. today until GoLYTELY | | | | | | | started. No clear liquids or | | | | | | | any food after GoLYTELY started. | | | | | | | No Lovenox or heparin. Please | | | | | | | check with hospitalist for | | | | | | | alternative DVT prophylactic | | | | | | | measure, | | | | | | + +-------+ +--------+---+---+ +---+---+ | | | +---+---+ + +-------+ +--------+---+---+ | polyethylene glycol (GOLYTELY) | Given | 12/11/19 | 2,000 | | | | suspension 2,000 mL 2,000 mL, | | 19 1:32 | mLs | | | | Oral, ONCE, 12/09/18 at 2315, | | PDT | | | | | For 1 dose, Give 240 mL every 10 | | | | | | | minutes until the ordered volume | | | | | | | is consumed or the rectal | | | | | | | effluent is clear. Give 2 L of | | | | | | | GoLYTELY at 5 PM today and 2 L at | | | | | | | 11 PM tonight. N.p.o. when | | | | | | | GoLYTELY is finished. Clear | | | | | | | liquids p.o. today until GoLYTELY | | | | | | | started. No clear liquids or | | | | | | | any food after GoLYTELY started. | | | | | | | No Lovenox or heparin. Please | | | | | | | check with hospitalist for | | | | | | | alternative DVT prophylactic | | | | | | | measure, | | | | | | + +-------+ +--------+---+---+ +---+---+ | | | +---+---+ + +---------+ +---+-------+---+ | sodium chloride 0.9% (NS) | New Bag | 12/10/19 | | 100 | | | infusion at 100 mL/hr, | | 19 1:10 | | mL/hr | | | Intravenous, CONTINUOUS, Starting | | PDT | | | | | 12/07/18 at 1115 | | | | | | + +---------+ +---+-------+---+ + + +---+-------+---+ | New Bag | 12/09/19 | | 100 | | | | 19 15:57 | | mL/hr | | | | PDT | | | | + + +---+-------+---+ | Rate/Dose Change | 12/09/19 | | 100 | | | | 19 12:47 | | mL/hr | | | | PDT | | | | + + +---+-------+---+ +---+---+ | | | +---+---+ + +-------+ +-------+---+---+ | ticagrelor (BRILINTA) tablet 90 | Given | 12/12/19 | 90 mg | | | | mg 90 mg, Oral, 2 TIMES DAILY, | | 19 9:01 | | | | | First dose on 12/07/18 at 1330 | | PDT | | | | + +-------+ +-------+---+---+ +-------+ +-------+---+---+ | Given | 12/11/19 | 90 mg | | | | | 19 20:22 | | | | | | PDT | | | | +-------+ +-------+---+---+ | Given | 12/11/19 | 90 mg | | | | | 19 10:11 | | | | | | PDT | | | | +-------+ +-------+---+---+ +---+---+ | | | +---+---+ documented in this encounter
--- OUTSIDE RECORDS SUMMARY | ~2019-02-03 | XMS | Encounter Summary ---
Demographics + + + | Address | [address] | | | [place] [address] | + + + | Home Phone | | + + + | Preferred Language | Unknown | + + + | Marital Status | | + + + | Latter-Day Affiliation | 1013 | + + + | Race | Unknown | + + + | Ethnic Group | Unknown | + + + Author + + + | Author | [facility] | | | and [place] | + + + | Organization | [facility] | | | and [place] | + + + | Address | Unknown | + + + | Phone | Unavailable | + + + Support + + +---------+ + | Name | Relationship | Address | Phone | + + +---------+ + | AMADO LAGOS | ECON | Unknown | | + + +---------+ + | FLOR LAGOS | ECON | Unknown | | + + +---------+ + Care Team Providers + +------+ + | Care Wheel Loader Operator Name | Role | Phone | + +------+ + | No, Physician | PCP | Unavailable | + +------+ + Reason for Visit + + + | Reason | Comments | + + + | Medication Refill | | + + + Encounter Details +--------+--------+ + + + | Date | Type | Department | Care Team | Description | +--------+--------+ + + + | 12/22/ | Refill | [facility] | Deena Allen | Medication Refill | | 2018 | | CARDIOLOGY RODDY Roth Director Of Retail Marketing | | | | | [address] | | | | | | [place] | | | | | | [address] | | | | | | [phone] | | | +--------+--------+ + + + Social History + +-------+ [...] + + documented as of this encounter Plan of Treatment +--------+---------+ + + + | Date | Type | Specialty | Care Team | Description | +--------+---------+ + + + | 02/23/ | Office | Cardiology | Julia No | | | 2019 | Visit | | [address] | | | | | | [address] | | | | | | [place] [address] | | | | | | [phone] | | | | | | | | +--------+---------+ + + + documented as of this encounter Visit Diagnoses Not on filedocumented in this encounter"
--- OUTSIDE RECORDS SUMMARY | ~2019-02-03 | XMS | Clinical Summary ---
Demographics + + + | Address | [address] | | | [place] [address] | + + + | Home Phone | | + + + | Preferred Language | Unknown | + + + | Marital Status | | + + + | Jewish Affiliation | Unknown | + + + | Race | Unknown | + + + | Ethnic Group | Unknown | + + + Author + + + | Author | [facility] (Historical as of | | | 11-15-18) | + + + | Organization | [facility] (Historical as of | | | 11-15-18) | + + + | Address | Unknown | + + + | Phone | Unavailable | + + + Support + + +---------+ + | Name | Relationship | Address | Phone | + + +---------+ + | Tayler Elmore | ECON | Unknown | | + + +---------+ + Care Team Providers + +------+ + | Care Reaming Machine Operator Name | Role | Phone | + +------+ + | Omar Burnett DO | PP | | + +------+ + Allergies Not on File Current Medications Not on file Active Problems Not on file Social History + +-------+ +--------+------+ | Tobacco Use | Types | Packs/Day | Years | Date | | | | | Used | | + +-------+ +--------+------+ | Never Assessed | | | | | + +-------+ +--------+------+ + + + | Sex Assigned at | Date Recorded | | | | + + + | Not on file | | + + + Plan of Treatment Not on file Results Not on filefrom Last 3 Months"
--- OUTSIDE RECORDS SUMMARY | ~2019-02-03 | XMS | Encounter Summary ---
Demographics + + + | Address | [address] | | | [place] [address] | + + + | Home Phone | | + + + | Preferred Language | Unknown | + + + | Marital Status | | + + + | Anabaptist Affiliation | [id number] | + + + | Race | Unknown | + + + | Ethnic Group | Unknown | + + + Author + + + | Author | [facility] | | | and [place] | + + + | Organization | [facility] | | | and [place] | + + + | Address | Unknown | + + + | Phone | Unavailable | + + + Support + + +---------+ + | Name | Relationship | Address | Phone | + + +---------+ + | MISAEL LAGOS | ECON | Unknown | | + + +---------+ + | FLOR LAGOS | ECON | Unknown | | + + +---------+ + Care Team Providers + +------+ + | Care Heater Helper Name | Role | Phone | + +------+ + | Misael Watkins MD | PCP | | + +------+ + Reason for Visit + + + | Reason | Comments | + + + | Follow-up, Office | Hospital | | Visit | | + + + Encounter Details +--------+---------+ + + + | Date | Type | Department | Care Team | Description | +--------+---------+ + + + | 01/22/ | Office | [facility] | Marybel Julia | Coronary artery | | 2019 | Visit | [facility]IOLOG[facility] [place] | [address] | disease of lytton | | | | [address] | [address] | artery of lyt[place] | | | | [address] | [place] [address] | heart with stable | | | | [place], [place] | [phone] | angina pectoris | | | | [address] | | ([facility]) (Primary Dx); | | | | [phone] | | HYPERTENSION, BENIGN | | | | | | ESSENTIAL; CORONARY | | | | | | ARTERY SPASM; Mild | | | | | | asthma without | | | | | | complication, | | | | | | unspecified whether | | | | | | persistent; | | | | | | Hypothyroidism, | | | | | | unspecified type; | | | | | | Upper GI bleed; | | | | | | History of rheumatic | | | | | | fever as a child; | | | | | | Acute blood loss | | | | | | anemia; Hospital | | | | | | discharge follow-up; | | | | | | NSTEMI (non-ST | | | | | | elevated myocardial | | | | | | infarction) ([facility]) | +--------+---------+ + + + Social History + +-------+ [...] | | + + +---------+ + | Never | | | | + + +---------+ + + + + + | Alcohol Habits | Answer | Date Recorded | + + + + | How often do you have a drink containing | Never | 01/22/2019 | | alcohol? | | | + + + + | How many drinks containing alcohol do you | Not asked | | | have on a typical day when you are | | | | drinking? | | | + + + + | How often do you have six or more drinks on | Not asked | | | one occasion? | | | + + + + + + + | Sex Assigned [...] + + + | Blood Pressure | 130/70 | 01/22/2019 1050 PDT | + + + + | Pulse | 55 | 01/22/2019 1050 PDT | + + + + | Temperature | - | - | + + + + | Respiratory Rate | - | - | + + + + | Oxygen Saturation | 97% | 01/22/2019 105 PDT | + + + + | Inhaled Oxygen | - | - | | Concentration | | | + + + + | Weight | 85.1 kg (187 lb 9.6 | 01/22/2019 1050 PDT | | | oz) | | + + + + | Height | 154.9 cm (5' 1") | 01/22/2019 1050 PDT | + + + + | Body Mass Index | 35.45 | 01/22/2019 1050 PDT | + + + + documented in this encounter Patient Instructions Patient Instructions Julia No FNP - 01/22/2019 10:30 PDTI have ordered you No n fasting labs to be done at [facility] in 2 weeks I made changes to medications : take flovent 1 puff twice a day to help breathing, Take fur osemide 20 mg daily with potassium 10 Meq daily to help with swelling , take iron every oth er day with vitamin C with Miralax in the morning, and docusate 1 pill in the evening to he lp with constipation , Take atorvastatin at night , take magnesium oxide 250-400 mg once a d ay See me back in one month documented in this encounter Progress Notes Julia No, 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 Date of visit: 01/22/2019 Primary Care Physician: Misael aWtkins MD CHIEF COMPLAINT: Chief Complaint Patient presents with Follow-up, Office Visit Hospital HISTORY OF PRESENT ILLNESS: Grisel Landon, is a 78 year old woman who is here today for hospital follow-up. She is a patient of , who consulted on her during her hospitalization at [facility] in November when she was hospitalized chest pain associated with GI bleeding. She has be en seen by [facility] since 2008 but lost to follow-up since 2009, has had d ocumented chest pain with T wave inversions to anterior leads since that time. Today, I reviewed all previous documentation available to me in electronic medical radha rds and from external sources. She has a history of coronary artery disease with stent to proximal LAD 11/29/2018, hypert ension, hyperlipidemia, recent GI bleeding secondary to dual platelet dual therapy antiplate let therapy, asthma , hypothyroidism, and GERD A review of her older records also reports a history of rheumatic fever twice as a child , EKG's dating back to [address] and T wave abnormalities to anterior le ads, and later to anterolateral leads Her current and previous testing and procedures are detailed below She was initially admitted to [facility] on 11/28/2018, and discharged on the for unstable angina with for the past week with severe chest pressure which radiated to her jaw and shou lders, EKG initially showed normal sinus rhythm with T wave inversions across the anterior p recordium. Drug-eluting stent placed to her proximal LAD 11/29/2018. She was discharged on aspirin, atorvastatin, lisinopril, and ticagrelor. She presented to [facility] 12/07/2018 with increasing chest pain after her discharge, and new on set bloody stools which turned into dark tarry stools, and her presenting EKG demonstrated a nterior ST-T wave changes with negative troponin's. She was treated for her ischemia medically, due to GI bleed with plan that once bleeding resolved, she could be brought back for another angiogram if indicated. Since she responde d well to Imdur 120 mg, it was not thought to be stent stenosis . Her Echo done in the hospital demonstrated normal wall motion and normal EF and she was c hest pain-free when her Imdur was increased to 120 mg. She was discharged 12/11/2018 on aspirin, Imdur 120 mg, atorvastatin 80 mg daily, lisinopr il 2.5 mg daily , and beta-anjali held due to resting bradycardia , and continued on DAPT f or her recent stent. She was consulted by restaurant shift supervisor Dr. Castaneda during hospital admission with t he plan to proceed with EGD/colonoscopy, but since her hemoglobin and hematocrit were stabl e, and no further bleeding episodes, she was discharged on PPI for possible gastritis/peptic ulcer disease with referral for EGD/colonoscopy as an outpatient, and also started on oral iron She reports today that still has chest pain across her chest, down both arms, and radiati ng up to jaw. She reports one episode of tarry stool right after discharge but none since,and repor ts chest pain occurs a few time per week , and helped with nitro, and goes away in 15 minute s, and only one nitro. She report chest pain triggered by activity like going up and down stairs, and sometimes accompanied by shortness of breath,and some dizziness and reports not increasing in severity , but frequency, and not occurring at rest, and no diaphoresis, or nausea. She reports increased swelling to her lower legs , but intermittent. She denies syncope , but one episode of presyncope, She denies any signs or symptoms of stroke or TIA, or any illness, surgery, or hospital ization since discharged from the hospital. She previously exercised with walking on a regular basis, but has not done so with her an angie. She is a lifelong non-smoker, drinks no caffeine as causes palpitations, and denies any use of alcohol, recreational, or illicit drugs. She brought all her medications to clinic today , but reports she has stopped taking iron due to constipation. REVIEW OF SYSTEMS: Negative except for pertinent items noted in HPI. Constitutional: Denies fatigue or unexplained weight loss. Appetite is good. Weight is st able. Denies night sweats fevers or chills HENT: Denies nosebleeds. 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 Respiratory/Sleep::Asthma reports increased shortness of breath recently, sometimes with ch est pain but often otherwise especially with more extreme exertion. Denies cough. Denies h emoptysis or excessive sputum production. Denies snoring, orthopnea, PND. Sleep is refreshi ng Cardiovascular: Reports chest pain across chest, and up into the jaw and shoulders 3-4 time s per week, sometimes accompanied by dizziness and shortness of breath, no other symptoms, s ee HPI reports increased pedal edema. Denies , palpitations. history of rheumatic fever X 2 as child . Denies claudication . Gastrointestinal: GERD., on PPI. Hx GIB 11/2018 secondary to DAPT following stents 10/2018 at [facility]. Denies Current nausea, vomiting, abdominal pain and blood in stool. Genitourinary: Denies hematuria. Musculoskeletal: Denies myalgias, back pain and arthralgias. Skin: Denies color change. Denies rash or lesions Neurological: Denies history of stroke/Transient ischemic attack.Denies history of seizures . Denies dizziness, syncope and numbness. Hematological/Oncology . Bruises easily. Denies bleeding Denies history of cancer Endocrine:Hypothyroidism. Denies diabetes .Low Vitamin D. Denies excessive thirst or hun aminata. Psychiatric/Behavioral: denies any history of depression or anxiety or other psychiatric il lness. Vaccines: Current on flu vaccine, plans to get it 12/2018. Current on post [facility]. Habits/Social : Denies history of smoking. Denies EtOH use. Drinks no caffeine . Denies r ecreational or illicit drug use. Exercises with walking,but not lately. . Lives in [facility]. Lives alone, , children live in the area. 2 daughters, 11 grandchildren, and 2 great-grandchildren. 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 Outpatient Medications Prior to Visit Medication Sig Dispense Refill acetaminophen (TYLENOL) 500 mg tablet Take 500 mg by mouth as needed for Pain. albuterol (VENTOLIN HFA) 90 mcg/puff inhaler Inhale 2 puffs into the lungs every 6 hour s as needed for Wheezing. ascorbic acid (VITAMIN C) 500 MG tablet Take 1 tablet by mouth Daily. 30 tablet 3 atorvaSTATin (LIPITOR) 40 mg tablet take 1 tablet by mouth once daily 90 tablet 3 BRILINTA 90 MG tablet take 1 tablet by mouth twice a day (Patient taking differently: T cookie 90 mg by mouth 2 times daily. take 1 tablet by mouth twice a day) 180 tablet 3 Cholecalciferol (VITAMIN D3 ADULT GUMMIES PO) Take 2,000 Int'l Units by mouth. docusate sodium (COLACE) 100 MG capsule Take 100 mg by mouth Twice daily as needed. 30 capsule 3 ferrous sulfate 325 mg tablet Take 1 tablet by mouth 2 times daily (with breakfast & di nner). (Patient not taking: Reported on 01/22/2019) 30 tablet 3 fluticasone (FLOVENT HFA) 110 mcg/puff inhaler Inhale 1 puff into the lungs 2 times nikia ly. isosorbide mononitrate (IMDUR) 120 mg ER tablet Take 1 tablet by mouth Daily. 30 tablet 3 levothyroxine (SYNTHROID) 50 mcg tablet Take 50 mcg by mouth every morning (before quincy kfast). lisinopril (PRINIVIL,ZESTRIL) 2.5 MG tablet take 1 tablet by mouth once daily (Patient taking differently: Take 2.5 mg by mouth nightly. take 1 tablet by mouth once daily) 90 tabl et 3 melatonin 3 mg TABS Take by mouth nightly as needed. nitroglycerin (NITROSTAT) 0.[address] 1 tablet under the tongue if needed ev vernon 5 minutes for capo... (REFER TO PRESCRIPTION NOTES). 90 tablet 3 pantoprazole (PROTONIX) 40 mg tablet Take 1 tablet by mouth 2 times daily (before meals ). For 1 weeks then once daily 60 tablet 0 RA ASPIRIN EC 81 MG EC tablet take 1 tablet by mouth once daily 90 tablet 3 No facility-administered medications prior to visit. PHYSICAL EXAM: Wt Readings from Last 3 Encounters: 01/22/19 85.1 kg (187 lb 9.6 oz) 12/10/18 87 kg (191 lb 12.8 oz) 04/04/10 77.6 kg (171 lb) Temp Readings from Last 3 Encounters: 12/11/18 36.4 C (97.6 F) (Oral) BP Readings from Last 3 Encounters: 01/22/19 130/70 12/11/18 114/58 04/04/10 120/70 Pulse Readings from Last 3 Encounters: 01/22/19 55 12/11/18 53 GENERAL: Well developed, well nourished, in no distress. Appears approximately stated age . HEENT: Normocephalic, atraumatic. Poor hearing EYES: PERRL, EOM normal. MOUTH: Oral mucosae moist, dentition adequate, no lesions noted NECK: No JVD, lymphadenopathy, thyromegaly, bruits. Carotid pulses are 2+ bilaterally LUNGS/CHEST: Clear bilaterally, with no rales, rhonchi or wheezing noted, respirations unl abored HEART: Nondisplaced PMI, regular rate and rhythm, S1, S2 normal. No murmurs, rubs or gall ops noted. ABDOMEN: Soft, nontender, no organomegaly, masses or bruits. Bowel sounds are normal in a ll 4 quadrants. The abdominal aortic pulsation is not palpable. EXTREMITIES: Mild pedal edema Radial pulses 2+ bilaterally. Femoral pulses are 2+ bilat erally without bruits. DP and PT pulses are 2+ bilaterally. No clubbing. SKIN: Warm and dry, capillary refill is normal, no lesions. NEUROLOGIC: Awake, alert and oriented x 3. No focal motor or sensory deficits. PSYCHIATRIC: Appropriate, affect appears normal DATA: Blood tests: Lab Results Component Value Date WBC 4.78 12/09/2018 RBC 2.80 (L) 12/09/2018 HGB 9.6 (L) 12/11/2018 HCT 27.5 (L) 12/11/2018 PLT 177 12/09/2018 Lab Results Component Value Date NA 143 12/09/2018 K 4.1 12/09/2018 CL 111 (H) 12/09/2018 CO2 20 (L) 12/09/2018 ANIONGAP 16 12/09/2018 BUN 17 12/09/2018 EGFR 54 (L) 12/09/2018 Lab Results Component Value Date CHOL 97 12/07/2018 TRIG 104 12/07/2018 LDL 35 12/07/2018 Lab Results Component Value Date TSH 6.780 (H) 12/09/2018 No results found for: TOTEPI CARDIAC PROCEDURES/IMAGING Last Angiogram/PCI: 11/29/2018:( [facility]) Aortic pressure 151/61. LV pressure 159/10. No g radient across aortic valve on pullback. Left main normal. LAD complex 99% stenosis in pro ximal segment, first and second all diagonal moderate caliber. Left circumflex: Mild diffus e disease mid segment, no significant stenosis. RCA 50-60% stenosis to proximal vessel, 99% stenosis in the midportion of PLB. Dominant vessel tension: 2.5 20 EPHRAIM proximal LAD Angiogram: 05/17/2008: Angiographically normal coronary arteries. Normal left ventricular systolic function with ejection fraction of 60% to 65%.Mildly elev ated left ventricular end-diastolic pressure VASCULAR TESTING AND PROCEDURES-none ECHO Last Echo: 12/07/2018: ([facility]). EF 65%. LV normal in size and wall thickness. Normal wall m otion. Indeterminate LV diastolic function. RV normal in size and function. Normal size a tria. Intra-arterial septum normal. Aortic valve tricuspid, mild calcification of aortic v alve, no aortic stenosis or regurgitation. Mitral valve mild calcification of mitral valve, trace MR. Trace TR. Trace PI. Normal size aortic root with normal size ascending aorta. IVC WNL, RAP 3 mmHg. Unable to assess pulmonary arterial systolic pressure. No pericardia l effusion. Echo: : 11/29/2018: [facility]: EF 60-65%. LV normal in size and wall thickness. No wall motion abnormalities. Pseudo-abnormal LV diastolic function. RV normal in size and function. Mi ld LAE normal RA aortic valve trileaflet mildly thickened, no AI or stenosis. Mitral valve normal, trace MR, no stenosis. Normal tricuspid valve and function, trace TR. No pulmonary hypertension, RVSP 25 mmHg. IVC WNL, RAP 3 mmHg. No evidence of pericardial effusion. Ob vious thrombus, mass, or vegetation Echo: 04/06/2008: EF 55-60%. Chamber dimensions normal. No hypertrophy. Evidence of diasto lic dysfunction. No significant gradient across aortic valve. Mild TR. No pulmonary hyper tension. No obvious clots, masses, effusions, or vegetations. EKG/EVENT MONITOR EK05/13/2008: Normal sinus rhythm, T wave inversions lead V1, V2, V3 low voltage QRS. Ra te 62 bpm, AK 160 ms, QRS 72 ms, QTC 432 ms, tracing personally reviewed by me EKG 09/28/2009: Marked sinus bradycardia, T wave inversions in anterolateral leads, low volt age QRS. Rate 45 bpm, AK 184 ms, QRS 76 ms, QTC 406 ms, tracing reviewed by ut EK12/10/2018: Sinus bradycardia, ST and T wave abnormalities anterolateral leads, nonspec ific ST and T wave abnormalities, low voltage QRS. Rate 56 bpm, AK 172 ms, QRS 74 ms, QTC 4 30 ms, tracing personally reviewed by me EK01/22/2019: Sinus bradycardia, nonspecific T wave abnormality with T wave in version V 1, V2, and previous T wave inversions to lateral leads resolved, ongoing low voltage QRS, es pecially leads I, aVL and V1. Rate 57 bpm, AK 170 ms, QRS 72 ms, QTC 430 ms. Personally re viewed by me LABS Labs: 12/07/2018: Lipids:( atorvastatin 40 mg) : Cholesterol 97, triglycerides 104, HDL 41, LDL 35. CMP: Sodium 142, potassium 4.3, chloride 112, CO2 21, glucose 111, BUN 13, creatini ne 0.84, albumin 4.1, total bili 1.1, alk phos 97, AST 24 ALT 22, GFR >60 Labs: 12/09/2018:( [facility]) Thyroid: TSH: 6.78 BMP: Sodium 143, potassium 4.1, chloride 111, gl ucose 109, BUN 17, creatinine 1, GFR 54 . Magnesium : 2.1 iron panel: Iron 32, IBC 338, iro n sat 9%. Ferritin: 29 B12 516. Folate 13.1 hemoglobin 10.5, hematocrit 30.3 Labs: 12/11/2018: ( [facility]) Hemoglobin 9.6, hematocrit 27.5. Labs 01/06/2019: ( PCP) Thyroid: TSH 6.63. Vitamin D: 24. ASSESSMENT & PLAN: She was here today for hospital follow up on recent LAD stent, and GI bleed secondary to DAPT, and increased chest pain. She has problems as detailed below Her EKG performed in the clinic shows return to baseline with small T wave inversion to an terior leads, which have been present since 2008 EKG which I reviewed today, and no ischemic changes, despite having some chest pain today. Her blood pressure also well controlled , and her labs performed at [facility] in November d shown lipids well controlled on Atorvastatin 40 mg, and normal CMP , but very low ferritin , iron , and B12, with low Hgb and Hct , and mildly elevated TSH. Her labs performed at her PCP's office show TSH still mildly elevated, and she was start ed on Levothyroxine 50 mcg by PCP, and on Vitamin D replacement for low Vitamin D. I discussed with her that I do not think her pain necessarily cardiac , but may be having some demand ischemia from ongoing anemia, as stopped her iron, and also asthma exacerbation , as needed to use albuterol inhaler in the clinic today, and symptoms worsened with exertio n like climbing stairs, and also climbing stairs. She is also mildly fluid overloaded , with increased pedal edema, and she reports sometim es up to her knees. She is very reluctant to have another angiogram, and I discussed with her that I would try treating her medically first, but if symptoms persisted, then Dr. Saab, who was in the clin ic today, would perform another angiogram on her. I have asked her to take her Flovent twice daily to see if improves her shortness of maxwell ath, and I have told her to resume her iron 325 mg every other day with Miralax and docusate in pm for constipation For her cardiac medications, I have added furosemide 20 mg daily , with potassium 10 mEq peter for LE edema and LANIER, and also told her to take Magnesium oxide 250 mg -400 mg daily as also depleted by furosemide. I have continued ASA 81 mg, and Brilinta 90 mg BID until 2019 for DAPT for stent,and then to continue ASA 81 mg for life, lisinopril 2.5 mg qhs for h ypertension and heart function,Imdur 120 mg daily for chest pain, Atorvastatin 40 mg qhs for hyperlipidemia with CAD and stent . I also sent in a refill on pantoprazole 40 mg daily to help prevent further GI bleed, and preferred agent for PPI. She would benefit from future EGD and colonoscopy, but deferred at least 6 months -12 months as not able to stop Brilinta , and no new bleeding. I have ordered an updated CMP to evaluate her response to diuretic , as well as ensure no liver congestion , and CBC with ferritin and iron panel to assess her anemia to be performe d in 2 weeks, and I will see her back in one month. 1. Coronary artery disease of [place] artery of [place] heart with stable angina pectoris ([facility]) 2. HYPERTENSION, BENIGN ESSENTIAL 3. CORONARY ARTERY SPASM 4. Mild asthma without complication, unspecified whether persistent 5. Hypothyroidism, unspecified type 6. Upper GI bleed 7. History of rheumatic fever as a child 8. Acute blood loss anemia 9. Hospital discharge follow-up 10. NSTEMI (non-ST elevated myocardial infarction) (HCC) Orders Placed This Encounter Procedures Comprehensive Metabolic Panel CBC with Differential Iron and Iron Binding Capacity Ferritin Magnesium ECG 12 lead The following portions of the patient's history were personally reviewed by me and updated as appropriate: EKG tracings, other specialty provider and PCP notes,any Hospital admission and discharge summaries, any ER records , current and previous cardiac testing and procedure reports and d stacey, , medication bottles brought to visit today personally reviewed by me. Allergies, current medications.labs Family history, past medical history, past social history, past surgical history. Problem list. This encounter was dictated with voice recognition software and may contain inadvertent rec ognition errors. Sofiya [facility] 01/22/2019 document ed in this encounter Plan of Treatment +--------+---------+ + + + | Date | Type | Specialty | Care Team | Description | +--------+---------+ + + + | 02/23/ | Office | Cardiology | Julia No | | | 2018 | Visit | | [address] | | | | | | [address] | | | | | | [place] [address] | | | | | | [phone] | | | | | | | | +--------+---------+ + + + + +--------+ + + | Name | Priori | Associated Diagnoses | Order Schedule | | | ty | | | + +--------+ + + | Comprehensive Metabolic Panel | Routin | HYPERTENSION, | Expected: | | | e | BENIGN ESSENTIAL | 02/05/2019, Expires: | | | | | 01/23/2020 | + +--------+ + + | CBC with Differential | Routin | Upper GI bleed | Expected: | | | e | Acute blood loss | 02/05/2019, Expires: | | | | anemia | 01/23/2020 | + +--------+ + + | Iron and Iron Binding Capacity | Routin | Upper GI bleed | Expected: | | | e | Acute blood loss | 02/05/2019, Expires: | | | | anemia | 01/23/2020 | + +--------+ + + | Ferritin | Routin | Upper GI bleed | Expected: | | | e | Acute blood loss | 02/05/2019, Expires: | | | | anemia | 01/23/2020 | + +--------+ + + | Magnesium | Routin | HYPERTENSION, | Expected: | | | e | BENIGN ESSENTIAL | 02/05/2019, Expires: | | | | Upper GI bleed | 01/23/2020 | | | | Acute blood loss | | | | | anemia | | + +--------+ + + documented as of this encounter Procedures + +--------+ + + + | Procedure Name | Priori | Date/Time | Associated Diagnosis | Comments | | | ty | | | | + +--------+ + + + | ECG 12 LEAD | Routin | 01/22/2019 | Coronary artery | Results for this | | | e | 11:03 PDT | disease of lytton | procedure are in the | | | | | artery of lytton | results section. | | | | | heart with stable | | | | | | angina pectoris | | | | | | ([facility]) HYPERTENSION, | | | | | | BENIGN ESSENTIAL | | | | | | CORONARY ARTERY | | | | | | SPASM Mild asthma | | | | | | without | | | | | | complication, | | | | | | unspecified whether | | | | | | persistent | | | | | | Hypothyroidism, | | | | | | unspecified type | | | | | | Upper GI bleed | | | | | | History of rheumatic | | | | | | fever as a child | | | | | | Acute blood loss | | | | | | anemia | | + +--------+ + + + documented in this encounter Results ECG 12 lead (01/22/2019 11:03 PDT) + + + + + + | Component | Value | Ref Range | Performed | Pathologist | | | | | At | Signature | + + + + + + | VENTRICULAR | 57 | BPM | [facility] | | | RATE EKG | | | | | + + + + + + | ATRIAL RATE | 57 | BPM | [facility] | | + + + + + + | P-R | 170 | ms | [facility] | | | INTERVAL | | | | | + + + + + + | QRS | 72 | ms | [facility] | | | DURATION | | | | | + + + + + + | Q-T | 442 | ms | [facility] | | | INTERVAL | | | | | + + + + + + | Q-T | 430 | ms | [facility] | | | INTERVAL | | | | | | (CORRECTED) | | | | | + + + + + + | P WAVE AXIS | 54 | degrees | [facility] | | + + + + + + | QRS AXIS | 60 | degrees | [facility] | | + + + + + + | T AXIS | 85 | degrees | [facility] | | + + + + + + | INTERPRETAT | Please refer to | | [facility] | | | ION TEXT | Providers office visit | | | | | | note for Providers | | | | | | Interpretation.Confirmed | | | | | | by [facility] Read Only, | | | | | | [facility] ([id number]), | | | | | | editorial writer Alessandro Goldberg | | | | | | [phone]) on 01/22/2019 | | | | | | 11:19:21 AM | | | | + + [...] + | Diagnosis | + + | Coronary artery disease of [place] artery of [place] heart with stable angina pectoris | | (HCC) - Primary | + + | HYPERTENSION, BENIGN ESSENTIAL Essential hypertension, benign | + + | CORONARY ARTERY SPASM Other and unspecified angina pectoris | + + | Mild asthma without complication, unspecified whether persistent | + + | Hypothyroidism, unspecified type | + + | Upper GI bleed Hemorrhage of gastrointestinal tract, unspecified | + + | History of rheumatic fever as a child | + + | Acute blood loss anemia Acute posthemorrhagic anemia | + + | Hospital discharge follow-up Other follow-up examination | + + | NSTEMI (non-ST elevated myocardial infarction) (HCC) Acute myocardial infarction, | | subendocardial infarction, episode of care unspecified | + + documented in this encounter
--- OUTSIDE RECORDS SUMMARY | ~2019-02-03 | XMS | Clinical Summary ---
Demographics + + + | Address | [address] | | | [place] [address] | + + + | Home Phone | | + + + | Preferred Language | Unknown | + + + | Marital Status | | + + + | Muslim Affiliation | 1013 | + + + | Race | Unknown | + + + | Ethnic Group | Unknown | + + + Author + + + | Author | [facility] | | | and [place] | + + + | Organization | [facility] | | | and [place] | + + + | Address | Unknown | + + + | Phone | Unavailable | + + + Support + + +---------+ + | Name | Relationship | Address | Phone | + + +---------+ + | MISAEL ELMORE | ECON | Unknown | | + + +---------+ + | FLOR ELMORE | ECON | Unknown | | + + +---------+ + Care Team Providers + +------+ + | Care Robotic Welder Name | Role | Phone | + +------+ + | Misael Watkins MD | PCP | | + +------+ + Allergies + + + + + + | Active Allergy | Reactions | Severity | Noted | Comments | | | | | Date | | + + + + + + | Caffeine | Palpitations | Low | 01/23/20 | | | | | | 19 | | + + + + + + | Nifedipine | Swelling | High | 01/23/20 | Extensive swelling | | | | | 19 | to lower | | | | | | extremities 2010 | + + + + + + Medications + + + +---------+------+------+-------+ | Medication | Sig | Dispensed | Refills | Star | End | Statu | | | | | | t | Date | s | | | | | | Date | | | + + + +---------+------+------+-------+ | ascorbic acid | Take 1 tablet by | 30 | 3 | 11/30 | | Activ | | (VITAMIN C) 500 MG | mouth Daily. | tablet | | 3/20 | | e | | tablet | | | | 19 | | | + + + +---------+------+------+-------+ | docusate sodium | Take 100 mg by mouth | 30 | 3 | 09/1 | | Activ | | (COLACE) 100 MG | Twice daily as | capsule | | 2/20 | | e | | capsule | needed. | | | 19 | | | + + + +---------+------+------+-------+ | isosorbide | Take 1 tablet by | 30 | 3 | 09/1 | | Activ | | mononitrate (IMDUR) | mouth Daily. | tablet | | 3/20 | | e | | 120 mg ER tablet | | | | 19 | | | + + + +---------+------+------+-------+ | atorvaSTATin | take 1 tablet by | 90 | 3 | 09/2 | | Activ | | (LIPITOR) 40 mg | mouth once daily | tablet | | 3/20 | | e | | tablet | | | | 19 | | | + + + +---------+------+------+-------+ | BRILINTA 90 MG | take 1 tablet by | 180 | 3 | 09/2 | | Activ | | tablet | mouth twice a day | tablet | | 3/20 | | e | | | | | | 19 | | | + + + +---------+------+------+-------+ | lisinopril | take 1 tablet by | 90 | 3 | 09/2 | | Activ | | (PRINIVIL,ZESTRIL) | mouth once daily | tablet | | 3/20 | | e | | 2.5 MG tablet | | | | 19 | | | + + + +---------+------+------+-------+ | nitroglycerin | place 1 tablet under | 90 | 3 | 09/2 | | Activ | | (NITROSTAT) 0.4 mg | the tongue if | tablet | | 3/20 | | e | | SL tablet | needed every 5 | | | 19 | | | | | minutes for capo... | | | | | | | | (REFER TO | | | | | | | | PRESCRIPTION NOTES). | | | | | | + + + +---------+------+------+-------+ | RA ASPIRIN EC 81 | take 1 tablet by | 90 | 3 | 12/01 | | Activ | | MG EC tablet | mouth once daily | tablet | | 06/18 | | e | | | | | | 19 | | | + + + +---------+------+------+-------+ | fluticasone | Inhale 1 puff into | | 0 | | | Activ | | (FLOVENT HFA) 110 | the lungs 2 times | | | | | e | | mcg/puff inhaler | daily. | | | | | | + + + +---------+------+------+-------+ | albuterol | Inhale 2 puffs into | | 0 | | | Activ | | (VENTOLIN HFA) 90 | the lungs every 6 | | | | | e | | mcg/puff inhaler | hours as needed for | | | | | | | | Wheezing. | | | | | | + + + +---------+------+------+-------+ | melatonin 3 mg | Take by mouth | | 0 | | | Activ | | TABS | nightly as needed. | | | | | e | + + + +---------+------+------+-------+ | levothyroxine | Take 50 mcg by mouth | | 0 | | | Activ | | (SYNTHROID) 50 mcg | every morning | | | | | e | | tablet | (before breakfast). | | | | | | + + + +---------+------+------+-------+ | acetaminophen | Take 500 mg by mouth | | 0 | | | Activ | | (TYLENOL) 500 mg | as needed for Pain. | | | | | e | | tablet | | | | | | | + + + +---------+------+------+-------+ | Cholecalciferol | Take 2,000 Int'l | | 0 | | | Activ | | (VITAMIN D3 ADULT | Units by mouth. | | | | | e | | GUMMIES PO) | | | | | | | + + + +---------+------+------+-------+ | furosemide (LASIX) | Take 1 tablet by | 30 | 11 | 10/2 | | Activ | | 20 mg tablet | mouth Daily. | tablet | | 4/20 | | e | | | | | | 19 | | | + + + +---------+------+------+-------+ | potassium chloride | Take 1 tablet by | 30 | 11 | 10/2 | | Activ | | (KLOR-CON) 10 MEQ | mouth Daily. | tablet | | 4/20 | | e | | ER tablet | | | | 19 | | | + + + +---------+------+------+-------+ | ferrous sulfate | Take 1 tablet by | 15 | 11 | 10/2 | | Activ | | 325 mg tablet | mouth Every other | tablet | | 4/20 | | e | | | day with breakfast. | | | 19 | | | + + + +---------+------+------+-------+ | pantoprazole | Take 1 tablet by | 90 | 3 | 10/2 | | Activ | | (PROTONIX) 40 mg | mouth every morning | tablet | | 4/20 | | e | | tablet | (before breakfast). | | | 19 | | | | | For 1 weeks then | | | | | | | | once daily | | | | | | + + + +---------+------+------+-------+ | ferrous sulfate | Take 1 tablet by | 30 | 3 | 09/ | 10/2 | Disco | | 325 mg tablet | mouth 2 times daily | tablet | | 2/20 | 4/20 | ntinu | | | (with breakfast & | | | 19 | 19 | ed | | | dinner). | | | | | | + + + +---------+------+------+-------+ | pantoprazole | Take 1 tablet by | 60 | 0 | 09/1 | 10/2 | Disco | | (PROTONIX) 40 mg | mouth 2 times daily | tablet | | 2/20 | 4/20 | ntinu | | tablet | (before meals). For | | | 19 | 19 | ed | | | 1 weeks then once | | | | | | | | daily | | | | | | + + + +---------+------+------+-------+ Active Problems + + + | Problem | Noted Date | + + + | History of rheumatic fever as a child | 01/22/2019 | + + + | NSTEMI (non-ST elevated myocardial infarction) | 01/22/2019 | + + + + + | Overview: 11/28/2018, EPHRAIM to Prox LAD , [facility] | + + + + + | Hospital discharge follow-up | 01/22/2019 | + + + | Angina of effort | 12/11/2018 | + + + | Acute blood loss anemia | 12/09/2018 | + + + | Upper GI bleed | 12/07/2018 | + + + + + | Overview: Admit [facility] Dec 07-December 11, 2018 for GI bleed | | secondary to dual antiplatelet therapy. | + + +--------+ + | Melena | 12/07/2018 | +--------+ + + + | Overview: Added automatically from request for surgery | | [id number] | + + + + + | Coronary artery disease of [place] artery of [place] heart with | 12/07/2018 | | stable angina pectoris | | + + + + + | Overview: Added automatically from request for surgery | | [id number] | + + + +---+ | Hypothyroidism | | + +---+ | Esophageal reflux | | + +---+ | Asthma | | + +---+ | HYPERTENSION, BENIGN ESSENTIAL | | + +---+ | Chest pain | | + +---+ | CORONARY ARTERY SPASM | | + +---+ Encounters +--------+ + + + + | Date | Type | Specialty | Care Team | Description | +--------+ + + + + | 01/22/ | Office | Cardiology | Julia No | Coronary artery | | 2019 | Visit | | [facility] | disease of [place] | | | | | | artery of [place] | | | | | | heart with stable | | | | | | angina pectoris | | | | | | ([facility]) (Primary Dx); | | | | | | HYPERTENSION, BENIGN | | | [...] | | | | | | infarction) ([facility]) | +--------+ + + + + | 12/22/ Refill | Cardiology | Deena Allen | Medication Refill | | 2018 | | | Gonzalez Commissions Manager | | +--------+ + + + + | 12/07/ Hospital | Internal Medicine | Diana Arenas, | Sarah (Primary Dx); | | 2019 - | Encounter | | DO Deena Chong, | Coronary artery | | | | | MD Garcia, | disease involving | | 12/11/ | | | MD Tc | [place] coronary | | 2018 | | | Natacha Arana, | artery, angina | | | | | MD | presence | | | | | | unspecified, | | | | | | unspecified whether | | | | | | [place] or | | | | | | transplanted heart; | | | | | | S/P angioplasty with | | | | | | stent; Chest pain, | | | | | | unspecified type; T | | | | | | wave inversion in | | | | | | EKG; Upper GI bleed; | | | | | | Coronary artery | | | | | | spasm (HCC); | | | | | | Essential | | | | | | hypertension, | | | | | | benign; Melena; | | | | | | Coronary artery | | | | | | disease involving | | | | | | [place] coronary | | | | | | artery, angina | | | | | | presence | | | | | | unspecified, | | | | | | unspecified whether | | | | | | [place] or | | | | | | transplanted heart; | | | | | | CORONARY ARTERY | | | | | | SPASM | +--------+ + + + + from Last 3 Months Family History + + +------+ + | Medical History | Relation | Name | Comments | + + +------+ + | Diabetes | Father | | | + + +------+ + | Heart disease | Father | | | + + +------+ + | High cholesterol | Father | | | + + +------+ + | Hypertension | Father | | | + + +------+ + | COPD | Mother | | | + + +------+ + | Heart failure | Mother | | | + + +------+ + | Tobacco Use | Mother | | | + + +------+ + + +------+ + + | Relation | Name | Status | Comments | + +------+ + + | Father | | | Heart disease, hypertension, type 2 | | | | (Age | diabetes, hyperlipidemia | | | | 75) | | + +------+ + + | Mother | | | HF, COPD (smoker) | | | | (Age | | | | | 69) | | + +------+ + + Social History + +-------+ +--------+------+ [...] recent travel history available. | + + Last Filed Vital Signs + + + + | Vital Sign | Reading | Time Taken | + + + + | Blood Pressure | 130/70 | 01/22/20190 PDT | + + + + | Pulse | 55 | 01/22/20191049 PDT | + + + + | Temperature | 36.4 C (97.6 F) | 12/11/2018748 PDT | + + + + | Respiratory Rate | 19 | 12/11/2018748 PDT | + + + + | Oxygen Saturation | 97% | 01/22/20191049 PDT | + + + + | Inhaled Oxygen | - | - | | Concentration | | | + + + + | Weight | 85.1 kg (187 lb 9.6 | 01/22/20191049 PDT | | | oz) | | + + + + | Height | 154.9 cm (5' 1") | 01/22/20191049 PDT | + + + + | Body Mass Index | 35.45 | 01/22/20191049 PDT | + + + + Plan of Treatment +--------+---------+ + + + | Date | Type | Specialty | Care Team | Description | +--------+---------+ + + + | 02/23/ | Office | Cardiology | Julia No | | | 2019 | Visit | | [facility] [address] | | | | | | [address] | | | | | | [place] [address] | | | | | | [phone] | | | | | | | | +--------+---------+ + + + + + + + + | Health Maintenance | Due Date | Last Done | Comments | + + + + + | Vaccine: | | | | | Dtap/Tdap/Td (1 - | 2 | | | | Tdap) | | | | + + + + + | Vaccine: Zoster (1 | | | | | of 2) | 3 | | | + + + + + | Breast Cancer | | | | | Screening | 8 | | | + + + + + | Vaccine: | | | | | Pneumococcal 65+ | 8 | | | | Low/Medium Risk (1 | | | | | of 2 - PCV13) | | | | + + + + + | Vaccine: Influenza | | 01/13/2016, 02/26/2014, | | | (#1) | 9 | 01/16/2013 | | + + + + + | Adult Annual | | | | | Wellness Visit | 9 | | | + + + + + Procedures + +--------+ + + + | Procedure Name | Priori | Date/Time | Associated Diagnosis | Comments | | | ty | | | | + +--------+ + + + | ECG 12 LEAD | Routin | 01/22/2019 | Coronary artery | Results for this | | | e | 11:03 PDT | disease of [place] | procedure are in the | | | | | artery of [place] | results section. | | | | | heart with stable | | | | | | angina pectoris | | | | | | (HCC) HYPERTENSION, | | | | | | [...] | | | FICATI | | | ON? | | | | | | 9 | | | 04:09? | | | CATARINA | | | NISH | | | | | | F?MRN: | | | | | | [id number] | | | [id number] | | | riteri | | | [...] | | | St. | | | [place] | | | y | | | [...] | | | St. | | | [place] | | | y H. | | [...] | | | St. | | | [place] | | | y H. | | [...] | | e of | | | [place] | | | | | | chin [...] | | | 1, | | | 2012 - | | | | | | [...] | | | [id number] | | | [id number] | | | 4b | | | [...] [email or web address] | | | m | +---+--------+ from Last 3 Months Results ECG 12 lead (01/22/2019 11:03 PDT)Only the most recent of 4 results within the time period is included. + + + + + + | [...] | | | | | by [facility] Read Only, | | | | | | [facility] ([id number]), | | | | | | offline editor Alessandro Goldberg | | | | | | ([id number]) on 01/22/2019 | | | | | [...] | | | + +---------+ + + Hemoglobin and Hematocrit (12/11/2018 5:43 PDT)Only the most recent of 6 results within e time period is included. + + + + + + | Component | Value | Ref Range | Performed | Pathologist | | | | | At | Signature | + + + + + + | Hemoglobin | 9.6 (L) | 11.3 - 15.5 | [facility] | | | | | g/dL | LABORATORY | | + + + + + + | Hematocrit | 27.5 (L)Comment: Testing | 34.0 - 46.0 % | [facility] | | | | performed at [facility];[address] | | LABORATORY | | | | [place] | | | | | | [address] | | | | + + + + + + + + | Specimen | + + | Blood | + + + + + + + | Performing | Address | City/State/Zipcode | Phone Number | | Organization | | | | + + + + + | [facility] | [address] | [place] [address] | [phone] | + + + + + Troponin I (12/10/2018 12:59 PDT)Only the most recent of 6 results within the time period i s included. + + + + + + | Component | Value | Ref Range | Performed | Pathologist | | | | | At | Signature | + + + + + + | Troponin I | 0.124 (H)Comment: 0.04 | 0.00 - 0.04 | [facility] | | | | ng/mL or | [...] at | | | | | | [facility];[address];[place] [address] | | | | + + + + + + + + | Specimen | + + | Blood | + + + + + + + | Performing | Address | City/State/Zipcode | Phone Number | | Organization | | | | + + + + + | [facility] | [address] | [place] [address] | [phone] | + + + + + Iron [...] | | | Saturation | performed at [facility], [address] | | LABORATORY | | | | [place], | | | | | | [place] [address] | | | | + + + + + + + + | Specimen | + + | Blood | + + + + + + + | Performing | Address | City/State/Zipcode | Phone Number | | Organization | | | | + + + + + | [facility] | [address] | [place] [address] | [phone] | + + + + + Vitamin B-12 12/10/2018 5:16 PDT) + + + + + + | Component | Value | Ref Range | Performed | Pathologist | | | | | At | Signature | + + + + + + | VITAMIN | 516Comment: Testing | 254 - 1,320 | [facility] | | | B-12 | performed at [facility], [address] | pg/mL | LABORATORY | | | | [place], | | | | | | [place] [address] | | | | + + + + + + + + | Specimen | + + | Blood | + + + + + + + | Performing | Address | City/State/Zipcode | Phone Number | | Organization | | | | + + + + + | [facility] | [address] | [place] [address] | [phone] | + + + + + Folate (12/10/2018 5:16 PDT) + + + + + + | Component | Value | Ref Range | Performed | Pathologist | | | | | At | Signature | + + + + + + | FOLATE | 13.1Comment: Testing | >5.4 ng/mL | [facility] | | | | performed at [facility], [address] | | LABORATORY | | | | [facility], | | | | | | [place] [address] | | | | + + + + + + + + | Specimen | + + | Blood | + + + + + + + | Performing | Address | City/State/Zipcode | Phone Number | | Organization | | | | + + + + + | [facility] | [address] | [place] [address] | [phone] | + + + + + Ferritin (12/10/2018 5:16 PDT) + + + + + + | Component | Value | Ref Range | Performed | Pathologist | | | | | At | Signature | + + + + + + | Ferritin | 29Comment: Testing | 6 - 170 ng/mL | [facility] | | | | performed at [facility], [address] | | LABORATORY | | | | [place], | | | | | | [place] [address] | | | | + + + + + + + + | Specimen | + + | Blood | + + + + + + + | Performing | Address | City/State/Zipcode | Phone Number | | Organization | | | | + + + + + | [facility] | [address] [facility] | [place] [address] | [phone] | + + + + + Magnesium (12/09/2018 22:25 PDT)Only the most recent of 3 results within the time period is included. + + + + + + | Component | Value | Ref Range | Performed | Pathologist | | | | | At | Signature | + + + + + + | Magnesium | 2.1Comment: Testing | 1.7 - 2.4 mg/dL | [facility] | | | | performed at [facility], [address] | | LABORATORY | | | | [place], | | | | | | [place] [address] | | | | + + + + + + + + | Specimen | + + | Blood | + + + + + + + | Performing | Address | City/State/Zipcode | Phone Number | | Organization | | | | + + + + + | [facility] | [address] | [place] [address] | [phone] | + + + + + Basic Metabolic Panel (12/09/2018 22:25 PDT)Only the most recent of 2 results within the period is included. + + + + + + | [...] 54 (L)Comment: GFR <60: | >60 | [facility] | | | GFR | CHRONIC KIDNEY [...] | | | | | | MDRD [facility] traceable | | | | | | equation.Testing | | | | | | performed at [facility], [address] | | | | | | [facility], | | | | | | [place] [address] | | | | + + + + + + + + | Specimen | + + | Blood | + + + + + + + | Performing | Address | City/State/Zipcode | Phone Number | | Organization | | | | + + + + + | [facility] | [address] | [place] [address] | [phone] | + + + + + Fecal Hemoglobin (12/09/2018 17:38 PDT) + + + + + + | Component | Value | Ref Range | Performed | Pathologist | | | | | At | Signature | + + + + + + | FECAL | POSITIVE (A)Comment: | NEG | [facility] | | | OCCULT BLD | Testing performed at | | LABORATORY | | | | [facility];[address];[place] [address] | | | | + + + + + + + + | Specimen | + + | Stool | + + + + + + + | Performing | Address | City/State/Zipcode | Phone Number | | Organization | | | | + + + + + | [facility] | [address] | [place] [address] | [phone] | + + + + + CBC [...] MPV | 9.4Comment: Testing | fl | [facility] | | | | performed at [facility], [address] | | LABORATORY | | | | [place], | | | | | | [place] [address] | | | | + + + + + + + + | Specimen | + + | Blood | + + + + + + + | Performing | Address | City/State/Zipcode | Phone Number | | Organization | | | | + + + + + | [facility] | [address] | [place] [address] | [phone] | + + + + + TSH (12/09/2018 5:15 PDT) + + + + + + | Component | Value | Ref Range | Performed | Pathologist | | | | | At | Signature | + + + + + + | TSH | 6.780 (H)Comment: | 0.450 - 5.100 | [facility] | | | | Testing performed at | uIU/mL | LABORATORY | | | | [facility], [address] [facility] | | | | | | [place] | | | | | | [address] | | | | + + + + + + + + | Specimen | + + | Blood | + + + + + + + | Performing | Address | City/State/Zipcode | Phone Number | | Organization | | | | + + + + + | [facility] | [address] | [place] [address] | [phone] | + + + + + Renal [...] 3.0 | 2.3 - 4.8 mg/dL | [facility] | | | | | | LABORATORY | | + + + + + + | Estimated | 54 (L)Comment: GFR <60: | >60 | [facility] [...] | | | | | | MDRD [facility] traceable | | | | | | equation.Testing | | | | | | performed at [facility], [address] | | | | | | [facility], | | | | | | [place] [address] | | | | + + + + + + + + | Specimen | + + | | + + + + + + + | Performing | Address | City/State/Zipcode | Phone Number | | Organization | | | | + + + + + | [facility] | [address] | [place] [address] | [phone] | + + + + + Urinalysis with Microscopic if Indicated (12/08/2018 17:03 PDT) + + + + + + | Component | Value | Ref Range | Performed | Pathologist | | | | | At | Signature | + + + + + + | Color, UA | YELLOW | | [facility] | | | | | | LABORATORY | | + + + + + + | Clarity, UA | CLEAR | | [facility] | | | | | | LABORATORY | | + + + + + + | Specific | 1.011 | 1.002 - 1.030 | [facility] | | | [place], | | | LABORATORY | | | [...] | + + + + + | [facility] | [address] | [place] [address] | [phone] | + + + + + Urinalysis, [...] [facility] | | | | performed at [facility], [address] | | LABORATORY | | | | [place], | | | | | | [place] [address] | | | | + + + + + + + + | Specimen | + + | | + + + + + + + | Performing | Address | City/State/Zipcode | Phone Number | | Organization | | | | + + + + + | [facility] | [address] | [place] [address] | [phone] | + + + + + ECHO [...] | | | + +---------+ + + Lipid Panel (12/07/2018 11:32 PDT) [...] | 35Comment: Testing | <100 mg/dL | [facility] | | | Calculated | performed at [facility], [address] | | LABORATORY | | | | [place], | | | | | | [place] [address] | | | | + + + + + + + + | Specimen | + + | Blood | + + + + + + + | Performing | Address | City/State/Zipcode | Phone Number | | Organization | | | | + + + + + | [facility] | [address] | [place] [address] | [phone] | + + + + + CBC [...] 0.05Comment: Testing | 0.00 - 0.10 | [facility] | | | Absolute | performed at [facility];[address] | LABORATORY | | | | [address];[place], [place] | | | | | | [address] | | | | + + + + + + + + | Specimen | + + | Blood | + + + + + + + | Performing | Address | City/State/Zipcode | Phone Number | | Organization | | | | + + + + + | [facility] | [address] [facility] | [place] [address] | [phone] | + + + + + Comprehensive [...] | | | | | performed at [facility];[address] | | | | | | [facility];[place], [place] | | | | | | [address] | | | | + + + + + + + + | Specimen | + + | Blood | + + + + + + + | Performing | Address | City/State/Zipcode | Phone Number | | Organization | | | | + + + + + | [facility] | [address] | [place] [address] | [phone] | + + + + + from Last 3 Months Insurance + +--------+ +--------+ +---------+--------+ | Payer | Benefi | Subscriber | Effect | Phone | Address | Type | | | t Plan | ID | magan | | | | | | / | | Dates | | | | | | Group | | | | | | + +--------+ +--------+ +---------+--------+ | MEDICARE | MEDICA | [id number] | 08/31/19 | [phone] | | Medica | | | RE | | 08-Pre | 5 | | re | | | PART A | | sent | | | | | | AND B | | | | | | + +--------+ +--------+ +---------+--------+ | [employer] | [employer] | [id number] | 12/08/19 | [phone] | | Medica | | MEDICAID HMO | HEALTH | | 19-Pre | 1 | | id | | | MDCD | | sent | | | | | | HMO OR | | | | | | + +--------+ +--------+ +---------+--------+ + +--------+ +--------+ + + | Guarantor Name | Accoun | Relation to | Date | Phone | Billing Address | | | t Type | Patient | of | | | | | | | | | | + +--------+ +--------+ + + | Nish Elmore | Person | Self | [birth year] | [address] | | | al/Fam | | 1941 | [phone] | [employer] | | | eb | | | 1 (Home) | [phone] | + +--------+ +--------+ + + Advance Directives Patient has advance care planning documents, and code status on file. For more information, please contact:[facility] [place] [address] + + + + + | Code Status | Date | Date | Comments | | | Activated | Inactivated | | + + + + + | Full Code | 12/07/2018 | 12/11/2018 | | | | 10:59 | 14:33 | | + + + + +
--- OUTSIDE RECORDS SUMMARY | ~2019-02-03 | XMS | Clinical Summary ---
Demographics + + + | Address | [address] | | | [place] [address] | + + + | Home Phone | | + + + | Preferred Language | Unknown | + + + | Marital Status | | + + + | Confucianism Affiliation | 1013 | + + + | Race | Unknown | + + + | Ethnic Group | Unknown | + + + Author + + + | Author | [facility] | | | and [place] | + + + | Organization | [facility] | | | [...] Team Providers + +------+ + | Care Delinquent Notice Machine Operator Name | Role | Phone [...] + + + + | Overview: Admit [facility] Dec 07-December 11, 2018 for GI bleed | | secondary to dual antiplatelet therapy. 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 | | + + + + + | Overview: Added automatically from request for surgery | | [id number] | + + + +---+ | Hypothyroidism [...] | | NOLA Espino | disease of yocha dehe | | | | | | artery of yocha dehe | | | | | | heart with stable | | | | | | angina pectoris | | | | | | ([facility]) (Primary Dx); | | | | | [...] | | | | | | infarction) ([facility]) | +--------+ + + + + | 12/22/ Refill | Cardiology | Deena Allen | Medication Refill | | 2018 | | | Gonzalez Baby Counselor | | +--------+ + + + + | 12/07/ Hospital | Internal Medicine | Diana Arenas, | Sarah (Primary Dx); | | 2019 - | Encounter | | DO Deena Chong, | Coronary artery | | | | | MD Garcia, | disease involving | | 12/11/ | | | MD Tc | yocha dehe coronary | | 2018 | | | Natacha Arana, | artery, angina | | | | | MD | presence | | | | | | unspecified, | | | | | | unspecified whether | | | | | | yocha dehe or | | | | | | [...] involving | | | | | | yocha dehe coronary | | | | | | artery, angina | | | | | | presence | | | | | | unspecified, | | | | | | unspecified whether | | | | | | yocha dehe or | | | | | | [...] [address] | | | | | | [place] [address] | | | | | | [phone] | | | | | | | [...] e | 11:03 PDT | disease of yocha dehe | procedure are in the | | | | | artery of yocha dehe | results section. | | | | [...] F?MRN: | | | | | | [id number] | | | [id number] | | | riteri | | | [...] | | | St. | | | [place] | | | y | | | [...] | | | St. | | | [place] | | | y H. | | [...] | | | St. | | | [place] | | | y H. 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 Alessandro Goldberg | | | | [...] [place] | | | | performed at [facility] | | LABORATORY | | | | [place] | | | | | | [address] | | | | + + + + + + + + | Specimen | + + | Blood | + + + + + + + | Performing | Address | City/State/Zipcode | Phone Number | | Organization | | | | + + + + + | [facility] | [address] | [place] [address] | [phone] | + + + + + Troponin [...] at | | | | | | [facility];[address];[place] [address] | | | | + + + + + + + + | Specimen | + + | Blood | + + + + + + + | Performing | Address | City/State/Zipcode | Phone Number | | Organization | | | | + + + + + | [facility] | [address] | [place] [address] | [phone] | + + + + + Iron [...] | | | | | [place] [address] | | | | + + + + + + + + | Specimen | + + | Blood | + + + + + + + | Performing | Address | City/State/Zipcode | Phone Number | | Organization | | | | + + + + + | [facility] | [address] | [place] [address] | [phone] | + + + + + Vitamin [...] | | | | | [place] [address] | | | | + + + + + + + + | Specimen | + + | Blood | + + + + + + + | Performing | Address | City/State/Zipcode | Phone Number | | Organization | | | | + + + + + | [facility] | [address] | [place] [address] | [phone] | + + + + + Folate (12/10/2018 5:16 PDT) + + + + + + | Component | Value | Ref Range | Performed | Pathologist | | | | | At | Signature | + + + + + + | FOLATE | 13.1Comment: Testing | >5.4 ng/mL | [facility] | | | | performed at [facility], [address] | | LABORATORY | | | | [facility], | | | | | | [place] [address] | | | | + + + + + + + + | Specimen | + + | Blood | + + + + + + + | Performing | Address | City/State/Zipcode | Phone Number | | Organization | | | | + + + + + | [facility] | [address] | [place] [address] | [phone] | + + + + + Ferritin [...] | | | | | | [place] [address] | | | | + + + + + + + + | Specimen | + + | Blood | + + + + + + + | Performing | Address | City/State/Zipcode | Phone Number | | Organization | | | | + + + + + | [facility] | [address] [facility] | [place] [address] | [phone] | + + + + + Magnesium [...] Testing | 1.7 - 2.4 mg/dL | [facility] | | | | performed at [facility], [address] | | LABORATORY | | | | [place], | | | | | | [place] [address] | | | | + + + + + + + + | Specimen | + + | Blood | + + + + + + + | Performing | Address | City/State/Zipcode | Phone Number | | Organization | | | | + + + + + | [facility] | [address] | [place] [address] | [phone] | + + + + + Basic [...] 54 (L)Comment: GFR <60: | >60 | [facility] | | | GFR | CHRONIC KIDNEY [...] | | | | | | MDRD [facility] traceable | | | | | | equation.Testing | | | | | | performed at [facility], [address] | | | | | | [facility], | | | | | | [place] [address] | | | | + + + + + + + + | Specimen | + + | Blood | + + + + + + + | Performing | Address | City/State/Zipcode | Phone Number | | Organization | | | | + + + + + | [facility] | [address] | [place] [address] | [phone] | + + + + + Fecal [...] [address] | | | | | [address];[place] [address] | | | | + + + + + + + + | Specimen | + + | Stool | + + + + + + + | Performing | Address | City/State/Zipcode | Phone Number | | Organization | | | | + + + + + | [facility] | [address] | [place] [address] | [phone] | + + + + + CBC [...] [place], | | | | | | [place] [address] | | | | + + + + + + + + | Specimen | + + | Blood | + + + + + + + | Performing | Address | City/State/Zipcode | Phone Number | | Organization | | | | + + + + + | [facility] | [address] | [place] [address] | [phone] | + + + + + TSH [...] | | | | [facility], [address] [facility] | | | | | | [place] | | | | | | [address] | | | | + + + + + + + + | Specimen | + + | Blood | + + + + + + + | Performing | Address | City/State/Zipcode | Phone Number | | Organization | | | | + + + + + | [facility] | [address] | [place] [address] | [phone] | + + + + + Renal [...] | | | | | | MDRD IDIA traceable | | | | | | equation.Testing | | | | | | performed at [facility], [address] | | | | | | [facility], | | | | | | [place] [address] | | | | + + + + + + + + | Specimen | + + | | + + + + + + + | Performing | Address | City/State/Zipcode | Phone Number | | Organization | | | | + + + + + | [facility] | [address] | [place] [address] | [phone] | + + + + + Urinalysis [...] - 1.030 | [facility] | | | [place], | | | LABORATORY | | | [...] | + + + + + | [facility] | [address] | [place] [address] | [phone] | + + + + + Urinalysis, [...] [facility] | | | | performed at [facility], [address] | | LABORATORY | | | | [place], | | | | | | [place] [address] | | | | + + + + + + + + | Specimen | + + | | + + + + + + + | Performing | Address | City/State/Zipcode | Phone Number | | Organization | | | | + + + + + | [facility] | [address] | [place] [address] | [phone] | + + + + + ECHO [...] | 35Comment: Testing | <100 mg/dL | [facility] | | | Calculated | performed at [facility], [address] | | LABORATORY | | | | [place], | | | | | | [place] [address] | | | | + + + + + + + + | Specimen | + + | Blood | + + + + + + + | Performing | Address | City/State/Zipcode | Phone Number | | Organization | | | | + + + + + | [facility] | [address] | [place] [address] | [phone] | + + + + + CBC [...] | | | Absolute | performed at [facility];[address] | [address] | LABORATORY | | | | [address];[place], [place] | | | | | | [address] | | | | + + + + + + + + | Specimen | + + | Blood | + + + + + + + | Performing | Address | City/State/Zipcode | Phone Number | | Organization | | | | + + + + + | [facility] | [address] [facility] | [place] [address] | [phone] | + + + + + Comprehensive [...] | | | | | performed at [facility];[address] | | | | | | [facility];[place], [place] | | | | | | [address] | | | | + + + + + + + + | Specimen | + + | Blood | + + + + + + + | Performing | Address | City/State/Zipcode | Phone Number | | Organization | | | | + + + + + | [facility] | [address] | [place] [address] | [phone] | + + + + + from [...] +--------+ +---------+--------+ | MEDICARE | MEDICA | [id number] | 08/31/19 | [phone] | | Medica | | | RE | | 08-Pre | 5 | | re | | | PART A | | sent | | | | | | AND B | | | | | | + +--------+ +--------+ +---------+--------+ | [employer] | [employer] | [id number] | 12/08/19 | [phone] | | Medica [...] eb | | | 1 (Home) | [address] | + +--------+ +--------+ + + Advance Directives Patient has advance care planning documents, and code status on file. For more information, please contact:[facility] [place] [address] + + + + + | Code Status | Date | Date | Comments | | | Activated | Inactivated | | + + + + + | Full Code | 12/07/2018 | 12/11/2018 | | | | 10:59 | 14:33 | | + + + + +
--- OUTSIDE RECORDS SUMMARY | ~2019-02-03 | XMS | Encounter Summary ---
Demographics + + + | Address | [address] | | | [place] [address] | + + + | Home Phone | | + + + | Preferred Language | Unknown | + + + | Marital Status | | + + + | Taoism Affiliation | 1013 | + + + | Race | Unknown | + + + | Ethnic Group | Unknown | + + + Author + + + | Author | [facility] | | | and [place] | + + + | Organization | [facility] | | | [...] Team Providers + +------+ + | Care Vulcanizing Press Operator Name | Role | Phone | [...] | Services | ogy | Sarah | Smuit, | Paul Baltazar MD | | | Required | | | Natacha Murdock MD | [address] | | | | | | [address] | | | | | | [address] | [place], | | | | | | [place], [place] | [place] [address] | | | | | | [address] | Phone: | | | | | | Phone: | [phone] | | | | | | [phone] | Fax: | | | | | | Fax: | [phone] | | | | | | [phone] | | + + + + + [...] | | | Coronary | BLVD | [place], [place] | | | | | artery spasm | [place], [place] | [address] Phone: | | | | | ([facility]) | [address] | [phone] | | | | | | Phone: | Fax: | | | | | | [phone] | [phone] | | | | | | Fax: | | | | | | | [phone] | | + + + + + [...] | | | | | | | caddo | | | | | | | coronary | | | | | | | artery, | | | | | | | angina | | | | | | | presence | | | | | | | unspecified, | | | | | | | unspecified | | | | | | | whether | | | | | | | caddo or | | | | | | [...] + + | 12/07/ | Hospital | [facility] | Diana Arenas, | Sarah (Primary Dx); | | 2019 - | Encounter | [facility] | DO [address] | Coronary artery | | | | CARE FLOOR [address] | [place] [address] | disease involving | | 12/11/ | | [address] | [phone] | caddo coronary | | 2019 | | [place], [place] | | artery, angina | | | | [address] | Deena Chong MD | presence | | | | [phone] | [address] | unspecified, | | | | | [place] [address] | unspecified whether | | | | | [phone] | caddo or | | | | | | transplanted heart; | | | | | Tc Garcia, | S/P angioplasty with | | | | | MD [address] | stent; Chest pain, | | | | | [place] [address] | unspecified type; T | | | | | [phone] | wave inversion in | | | | | | EKG; Upper GI bleed; | | | | | Natacha Arana S, | Coronary artery | | | | | MD [address] | spasm (HCC); | | | | | [place] [address] | Essential | | | | | [phone] | hypertension, | | | | | | benign; Sarah; | | | | | | Coronary artery | | | | | | disease involving | | | | | | caddo coronary | | | | | | artery, angina | | | | | | presence | | | | | | unspecified, | | | | | | unspecified whether | | | | | | caddo or | | | | | | [...] loss anemia Melena 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 * Procedures Performed: Procedure(s) (LRB): COLONOSCOPY W/ EGD (N/A) Chief Complaint: Chest Pain Hospital Course: The patient is a 78 y.o. female with significant past medical history of HTN, CAD, recent P CI with YOSHI to the proximal LAD presented to [facility] for chest pains. Patient was transferred to [facility] on 11/28/18 for unstable angina. She had [...] she finally decided to go to the [facility] ED for evalu ation Chest pain, possible related to myocardial ischemia, chest pain improved with titration of medical therapy per Insole Lip Turner Dr. Saab, started Imdur, plan to follow [...] Saab, DO [address] [facility] [address] Schedule an appointment as soon as possible for a visit in 2 weeks Paul Hsieh MD [address] [facility] [address] Schedule an appointment as soon as [...] might be different f rom the original. [facility] Gastroenterology Service Inpatient Consult Follow Up [...] this chart may have been created with Shellcatch voice recognition software. Occasi onal wrong-word or sound-alike substitutions may have occurred due to the inherent mason itations of voice recognition software. Please read the chart carefully and recognize, using context, where these substitutions have occurred. Natacha Evans MD - 12/10/2018 1310 PDT [facility] Service: Hospitalist Progress Note Pt: Nish [...] for finding of hemorrhoids. She came to [facility] emergency room. Initial troponin negative. EKG no acute ischemic change. Due to c omplex case patient was transferred to [facility]. Cardiology and gastroenterology consulted. Wh richard [...] hours. No results for input(s): PHART, PO2ART, WYN4IMZ, Y6IKXILH, BEART in the last 168 hours. 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 [...] Shilpa Finney DO - 12/10/2018 0633 PDT [facility] Service: Cardiology Progress Note Hospital Day: LOS: 3 days Post-Op Day: * No surgery found * SUBJECTIVE Patient Summary: The patient is a 78-year-old female who presents with chest discomfo rt. She was recently seen at [facility] where she underwent coronary angiography and drug-elutin [...] discomfort. She was recentl y seen at [facility] where she underwent coronary angiography and drug-eluting [...] of nitro . Nitro given x1. Dr Robetr evaluated patient at bedside . Patient reported a resolution of symptoms including chest pressure, face numbness and dizzi ness. BMP and Mg results were reported to . No new orders. Will continue to monitor Myrtle Wall, RN Electronically signed by Myrtle Wall RN at 019 8:38 Sindhu-Natacha Bledsoe MD - 12/09/2018 4405 PDTFormatting of this note might be d ifferent from the original. [facility] Service: Hospitalist Progress Note Pt: Nish [...] for finding of hemorrhoids. She came to [facility] emergency room. Initial troponin negative. EKG no acute ischemic change. Due to c omplex case patient was transferred to [facility]. Cardiology and gastroenterology consulted. Wh en [...] hours. No results for input(s): PHART, PO2ART, AMO3MEW, P1LTBRDB, BEART in the last 168 hours. No [...] Kusum Holm MD - 12/09/2018 1600 PDT [facility] Gastroenterology Service Inpatient Consult Follow Up [...] P atient is on Brilinta and aspirin. Foundation Drill Operator Helper: Angelique ZAVALETA Patient has not had any [...] Dr. Taylor has discusse d with the head filter tank tender helper and its okay to proceed with EGD [...] this chart may have been created with Shellcatch voice recognition software. Occasi onal wrong-word or sound-alike substitutions may have occurred due to the inherent mason itations of voice recognition software. Please read the chart carefully and recognize, using context, where these substitutions have occurred. LAShilpa Saab - 12/09/2018 1005 PDT [facility] Service: Cardiology Progress Note Hospital Day: LOS: 2 days Post-Op Day: * No surgery found * SUBJECTIVE Patient Summary: The patient is a 78-year-old female who presents with chest discomfo rt. She was recently seen at [facility] where she underwent coronary angiography and drug-elutin [...] discomfort. She was recentl y seen at [facility] where she underwent coronary angiography and drug-eluting [...] hilpa Saab DO - 2018 1237 PDT [facility] Service: Cardiology Progress Note Hospital Day: LOS: 1 day Post-Op Day: * No surgery found * SUBJECTIVE Patient Summary: The patient is a 78-year-old female who presents with chest discomfo rt. She was recently seen at [facility] where she underwent coronary angiography and drug-elutin [...] discomfort. She was recentl y seen at [facility] where she underwent coronary angiography and drug-eluting [...] -Continue atorvastatin 80 mg by mouth daily -Beta-anajli held due to resting bradycardia -Continue lisinopril 2.5 mg by mouth daily -Will continue to follow Code Status: Full Code Shilpa Saab DO Tc Vera MD - 0936 PDT [facility] Adult Hospitalist Progress Note Hospital Day: 1 Patient Summary: 78 y/o F with past medical history HTN, CAD, recent PCI with YOSHI to the proximal LAD in [facility] on November 28, 2018, with [...] for finding of hemorrhoids. She came to [facility] emergency room. Initial troponin negative. EKG no acute ischemic change. Due to c omplex case patient was transferred to [facility]. Cardiology and gastroenterology consulted. Wh en [...] for input(s): IRON, TIBC, PCTSAT, FERRITIN, TSH, [id number], FOLATE in the last 168 hours. No [...] least 50% of time was spent in nthe-gm-rlna coordination of care and counseling. All questions [...] [address] | | | | | | [place] [address] | | | | | | [phone] | | | | | | | [...] F?MRN: | | | | | | [id number] | | | [id number] | | | riteri | | | [...] | | | St. | | | Gerry | | | y | | | [...] | | | St. | | | Gerry | | | y H. | | [...] | | | St. | | | Gerry | | | y H. | | [...] | | e of | | | caddo | | | | | | chin [...] | | | 5-ac90 | | | [id number] | | | 4b | | | [...] [facility] | | | | performed at [facility] | | LABORATORY | | | | [address] [facility];[place] | | | | | | [address] | | | | + + + + + + + + | Specimen | + + | Blood | + + + + + + + | Performing | Address | City/State/Zipcode | Phone Number | | Organization | | | | + + + + + | [facility] | [address] | [place] [address] | [phone] | + + + + + ECG [...] at | | | | | | [facility];[address] [facility] | | | | | | [place] [address] | | | | + + + + + + + + | Specimen | + + | Blood | + + + + + + + | Performing | Address | City/State/Zipcode | Phone Number | | Organization | | | | + + + + + | [facility] | [address] | [place] [address] | [phone] | + + + + + Hemoglobin [...] [facility] | | | | performed at [facility];[address] | | LABORATORY | | | | [address];[place], [place] | | | | | | [address] | | | | + + + + + + + + | Specimen | + + | Blood | + + + + + + + | Performing | Address | City/State/Zipcode | Phone Number | | Organization | | | | + + + + + | [facility] | [address] | [place] [address] | [phone] | + + + + + Folate (12/10/2018 5:16 PDT) + + + + + + | Component | Value | Ref Range | Performed | Pathologist | | | | | At | Signature | + + + + + + | FOLATE | 13.1Comment: Testing | >5.4 ng/mL | [facility] | | | | performed at [facility], [address] | | LABORATORY | | | | [facility], | | | | | | [place] [address] | | | | + + + + + + + + | Specimen | + + | Blood | + + + + + + + | Performing | Address | City/State/Zipcode | Phone Number | | Organization | | | | + + + + + | [facility] | [address] | [place] [address] | [phone] | + + + + + Vitamin B-12 (12/10/2018 5:16 PDT) + + + + + + | Component | Value | Ref Range | Performed | Pathologist | | | | | At | Signature | + + + + + + | VITAMIN | 516Comment: Testing | 254 - 1,320 | [facility] | | | B-12 | performed at [facility], [address] | pg/mL | LABORATORY | | | | [place], | | | | | | [place] [address] | | | | + + + + + + + + | Specimen | + + | Blood | + + + + + + + | Performing | Address | City/State/Zipcode | Phone Number | | Organization | | | | + + + + + | [facility] | [address] | [place] [address] | [phone] | + + + + + Ferritin [...] | | | | | [place] [address] | | | | + + + + + + + + | Specimen | + + | Blood | + + + + + + + | Performing | Address | City/State/Zipcode | Phone Number | | Organization | | | | + + + + + | [facility] | [address] | [place] [address] | [phone] | + + + + + Iron [...] | | | Saturation | performed at [facility], [address] | | LABORATORY | | | | [place], | | | | | | [place] [address] | | | | + + + + + + + + | Specimen | + + | Blood | + + + + + + + | Performing | Address | City/State/Zipcode | Phone Number | | Organization | | | | + + + + + | [facility] | [address] | [place] [address] | [phone] | + + + + + Magnesium (12/09/2018 22:25 PDT) + + + + + + | Component | Value | Ref Range | Performed | Pathologist | | | | | At | Signature | + + + + + + | Magnesium | 2.1Comment: Testing | 1.7 - 2.4 mg/dL | [facility] | | | | performed at [facility], [address] | | LABORATORY | | | | [address], | | | | | | [place] [address] | | | | + + + + + + + + | Specimen | + + | Blood | + + + + + + + | Performing | Address | City/State/Zipcode | Phone Number | | Organization | | | | + + + + + | [facility] | [address] | [place] [address] | [phone] | + + + + + Basic [...] | | | | | performed at [facility], [address] | | | | | | [address], | | | | | | [place] [address] | | | | + + + + + + + + | Specimen | + + | Blood | + + + + + + + | Performing | Address | City/State/Zipcode | Phone Number | | Organization | | | | + + + + + | [facility] | [address] [facility] | [place] [address] | [phone] | + + + + + Hemoglobin [...] [facility] | | | | performed at [facility];[address] | | LABORATORY | | | | [facility];[place], [place] | | | | | | [address] | | | | + + + + + + + + | Specimen | + + | Blood | + + + + + + + | Performing | Address | City/State/Zipcode | Phone Number | | Organization | | | | + + + + + | [facility] | [address] | [place] [address] | [phone] | + + + + + Fecal [...] | | LABORATORY | | | | [facility];[address] | | | | [address];[place] [address] | | | | + + + + + + + + | Specimen | + + | Stool | + + + + + + + | Performing | Address | City/State/Zipcode | Phone Number | | Organization | | | | + + + + + | [facility] | [address] | [place] [address] | [phone] | + + + + + Renal [...] | | | | | performed at [facility], [address] | | | | | | [place], | | | | | | [place] [address] | | | | + + + + + + + + | Specimen | + + | | + + + + + + + | Performing | Address | City/State/Zipcode | Phone Number | | Organization | | | | + + + + + | [facility] | [address] | [place] [address] | [phone] | + + + + + Magnesium (12/09/2018 5:15 PDT) + + + + + + | Component | Value | Ref Range | Performed | Pathologist | | | | | At | Signature | + + + + + + | Magnesium | 2.0Comment: Testing | 1.7 - 2.4 mg/dL | [facility] | | | | performed at [facility], [address] | | LABORATORY | | | | [place], | | | | | | [place] [address] | | | | + + + + + + + + | Specimen | + + | Blood | + + + + + + + | Performing | Address | City/State/Zipcode | Phone Number | | Organization | | | | + + + + + | [facility] | [address] | [place] [address] | [phone] | + + + + + CBC [...] [facility] | | | | performed at [facility], [address] | | LABORATORY | | | | [place], | | | | | | [place] [address] | | | | + + + + + + + + | Specimen | + + | Blood | + + + + + + + | Performing | Address | City/State/Zipcode | Phone Number | | Organization | | | | + + + + + | [facility] | [address] | [place] [address] | [phone] | + + + + + TSH (12/09/2018 5:15 PDT) + + + + + + | Component | Value | Ref Range | Performed | Pathologist | | | | | At | Signature | + + + + + + | TSH | 6.780 (H)Comment: | 0.450 - 5.100 | [facility] | | | | Testing performed at | uIU/mL | LABORATORY | | | | [facility], [address] [place] [address] | | | | | | [place] | | | | | | [address] | | | | + + + + + + + + | Specimen | + + | Blood | + + + + + + + | Performing | Address | City/State/Zipcode | Phone Number | | Organization | | | | + + + + + | [facility] | [address] | [place] [address] | [phone] | + + + + + Urinalysis, [...] [facility] | | | | performed at [facility], [address] | | LABORATORY | | | | [place], | | | | | | [place] [address] | | | | + + + + + + + + | Specimen | + + | | + + + + + + + | Performing | Address | City/State/Zipcode | Phone Number | | Organization | | | | + + + + + | [facility] | [address] | [place] [address] | [phone] | + + + + + Urinalysis [...] - 1.030 | [facility] | | | [place], | | | LABORATORY | | | [...] | + + + + + | [facility] | [address] | [place] [address] | [phone] | + + + + + ECG [...] Testing | 1.7 - 2.4 mg/dL | [facility] | | | | performed at [facility], [address] | | LABORATORY | | | | [address], | | | | | | [place] [address] | | | | + + + + + + + + | Specimen | + + | Blood | + + + + + + + | Performing | Address | City/State/Zipcode | Phone Number | | Organization | | | | + + + + + | [facility] | [address] | [place] [address] | [phone] | + + + + + Hemoglobin [...] [facility] | | | | performed at [facility], [address] | | LABORATORY | | | | [address], | | | | | | [place] [address] | | | | + + + + + + + + | Specimen | + + | Blood | + + + + + + + | Performing | Address | City/State/Zipcode | Phone Number | | Organization | | | | + + + + + | [facility] | [address] | [place] [address] | [phone] | + + + + + Basic [...] W | | | | | | [facility] [place], | | | | | | [place] [address] | | | | + + + + + + + + | Specimen | + + | Blood | + + + + + + + | Performing | Address | City/State/Zipcode | Phone Number | | Organization | | | | + + + + + | [facility] | [address] | [place] [address] | [phone] | + + + + + Troponin I (12/08/2018 3:18 PDT) + + + + + + | Component | Value | Ref Range | Performed | Pathologist | | | | | At | Signature | + + + + + + | Troponin I | 0.082 (H)Comment: 0.04 | 0.00 - 0.04 | [facility] | | | | ng/mL [...] at | | | | | | [facility];[address] | | | | | | [facility];[place] [address] | | | | + + + + + + + + | Specimen | + + | Blood | + + + + + + + | Performing | Address | City/State/Zipcode | Phone Number | | Organization | | | | + + + + + | [facility] | [address] | [place] [address] | [phone] | + + + + + Troponin I (12/07/2018 19:25 PDT) + + + + + + | Component | Value | Ref Range | Performed | Pathologist | | | | | At | Signature | + + + + + + | Troponin I | 0.081 (H)Comment: 0.04 | 0.00 - 0.04 | [facility] | | | | ng/mL [...] at | | | | | | [facility];[address];[place] [address] | | | | + + + + + + + + | Specimen | + + | Blood | + + + + + + + | Performing | Address | City/State/Zipcode | Phone Number | | Organization | | | | + + + + + | [facility] | [address] | [place] [address] | [phone] | + + + + + Hemoglobin [...] [facility] | | | | performed at [facility];[address] | | LABORATORY | | | | [address];[place] | | | | | | [address] | | | | + + + + + + + + | Specimen | + + | Blood | + + + + + + + | Performing | Address | City/State/Zipcode | Phone Number | | Organization | | | | + + + + + | [facility] | [address] | [place] [address] | [phone] | + + + + + ECHO [...] at | | | | | | [facility];[address] [facility] | | | | | | [facility];[place] [address] | | | | + + + + + + + + | Specimen | + + | Blood | + + + + + + + | Performing | Address | City/State/Zipcode | Phone Number | | Organization | | | | + + + + + | [facility] | [address] | [place] [address] | [phone] | + + + + + Troponin I (12/07/2018 11:32 PDT) + + + + + + | Component | Value | Ref Range | Performed | Pathologist | | | | | At | Signature | + + + + + + | Troponin I | 0.04Comment: 0.04 | 0.00 - 0.04 | [facility] | | | | ng/mL [...] at | | | | | | [facility];[address];[place] [address] | | | | + + + + + + + + | Specimen | + + | Blood | + + + + + + + | Performing | Address | City/State/Zipcode | Phone Number | | Organization | | | | + + + + + | [facility] | [address] | [place] [address] | [phone] | + + + + + Hemoglobin [...] [facility] | | | | performed at [facility], [address] | | LABORATORY | | | | [address], | | | | | | [place] [address] | | | | + + + + + + + + | Specimen | + + | Blood | + + + + + + + | Performing | Address | City/State/Zipcode | Phone Number | | Organization | | | | + + + + + | [facility] | [address] | [place] [address] | [phone] | + + + + + Lipid [...] | | | Calculated | performed at [facility], [address] | | LABORATORY | | | | [address], | | | | | | [place] [address] | | | | + + + + + + + + | Specimen | + + | Blood | + + + + + + + | Performing | Address | City/State/Zipcode | Phone Number | | Organization | | | | + + + + + | [facility] | [address] | [place] [address] | [phone] | + + + + + Troponin I (12/07/2018 4:26 PDT) + + + + + + | Component | Value | Ref Range | Performed | Pathologist | | | | | At | Signature | + + + + + + | Troponin I | 0.019Comment: 0.04 | 0.00 - 0.04 | [facility] | | | | ng/mL [...] at | | | | | | [facility];[address] [place] [address] | | | | | | [facility];[place] [address] | | | | + + + + + + + + | Specimen | + + | Blood | + + + + + + + | Performing | Address | City/State/Zipcode | Phone Number | | Organization | | | | + + + + + | [facility] | [address] | [place] [address] | [phone] | + + + + + Comprehensive [...] | | | | | performed at [facility];[address] | | | | | | [facility];[place], [place] | | | | | | [address] | | | | + + + + + + + + | Specimen | + + | Blood | + + + + + + + | Performing | Address | City/State/Zipcode | Phone Number | | Organization | | | | + + + + + | [facility] | [address] | [place] [address] | [phone] | + + + + + CBC [...] | | | Absolute | performed at [facility];[address] | LABORATORY | | | [address];[place] | | | | | | [address] | | | | + + + + + + + + | Specimen | + + | Blood | + + + + + + + | Performing | Address | City/State/Zipcode | Phone Number | | Organization | | | | + + + + + | [facility] | [address] | [place] [address] | [phone] | + + + + + ECG [...] | | | | | | editor book José Miguel Saenz | | | | [...] + + | Coronary artery disease involving [place] coronary artery, angina presence unspecified, | | unspecified whether caddo or transplanted heart | + + | [...] + + | Coronary artery disease involving [place] coronary artery, angina presence unspecified, | | unspecified whether [place]o or transplanted heart | + + documented [...] 19 4:32 | | | | | [place] 12/07/18 at 0435, For 1 dose | | PDT | | | | + +-------+ +------+---+---+ + +---+ | | | + +---+ | ondansetron (ZOFRAN) injection | | | 4 mg 4 mg, Intravenous, EVERY 6 | | | HOURS PRN, Nausea, Vomiting, | | | Starting [place] 12/07/18 at 1058, | | | First line agent. Use PO option | | | unless NPO status or unable to | | | tolerate., | | + +---+ | | | + +---+ | pantoprazole (PROTONIX) DR | | | tablet 40 mg 40 mg, Oral, 2 | | | TIMES DAILY BEFORE MEALS, First | | | dose on [facility] 12/11/18 at 1630, Do | | [...]
--- OUTSIDE RECORDS SUMMARY | ~2019-02-03 | XMS | Encounter Summary ---
Demographics + + + | Address | [address] | | | [place] [address] | + + + | Home Phone | | + + + | Preferred Language | Unknown | + + + | Marital Status | | + + + | Sabianist Affiliation | 1013 | + + + | Race | Unknown | + + + | Ethnic Group | Unknown | + + + Author + + + | Author | [facility] | | | and [place] | + + + | Organization | [facility] | | [...] Team Providers + +------+ + | Care Banquet Food Server Name | Role | Phone | + [...] + + | 12/22/ | Refill | [facility] | Deena Allen | Medication Refill | | 2018 | | CARDIOLOGY RODDY Roth Workers Compensation Consultant | | | | | [address] | | | | | | [place] | | | | | | [address] | | | | | | [phone] | | | +--------+--------+ + + + [...] | | | | | [place] [id number] | | | | | | [phone] | | | | | | | | +--------+---------+ + + + documented as of this encounter Visit Diagnoses Not on filedocumented in this encounter"
--- OUTSIDE RECORDS SUMMARY | ~2019-02-03 | XMS | Encounter Summary ---
Demographics + + + | Address | [address] | | | [place] [address] | + + + | Home Phone | | + + + | Preferred Language | Unknown | + + + | Marital Status | | + + + | Christianity Affiliation | 1013 | + + + | Race | Unknown | + + + | Ethnic Group | Unknown | + + + Author + + + | Author | [facility] | | | and [place] | + + + | Organization | [facility] | | | and [...] Team Providers + +------+ + | Care Napper Tender Name | Role | Phone | + [...] + + | 01/22/ | Office | [facility] | Marybel Julia | Coronary artery | | 2019 | Visit | [facility] [place] | [address] | disease of [place] | | | | [address] | [address] | artery of [place] | | | | [address] | [place] [address] | heart with stable | | | | [place], [place] | [phone] | angina pectoris | | | | [phone] | | ([facility]) (Primary Dx); | | | | [phone] | | HYPERTENSION, BENIGN | | | [...] | | | | | | infarction) ([facility]) | +--------+---------+ + + + Social History [...] n fasting labs to be done at [facility] in 2 weeks I made changes to [...] in this encounter Progress Notes 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 Date of visit: 01/22/2019 Primary Care Physician: Misael Watkins MD CHIEF COMPLAINT: Chief Complaint Patient presents with Follow-up, Office Visit Hospital HISTORY OF PRESENT ILLNESS: Grisel Landon, is a 78 year old woman who is here today for hospital follow-up. She is a patient of , who consulted on her during her hospitalization at [facility] in November when she was hospitalized chest pain associated with GI bleeding. She has be en seen by [facility] since 2008 but lost to follow-up [...] detailed below She was initially admitted to [facility] on 11/28/2018, and discharged on the for unstable angina with for the past week with severe chest pressure which radiated to her jaw and shou lders, EKG initially showed normal sinus rhythm with T wave inversions across the anterior p recordium. Drug-eluting stent placed to her proximal LAD 11/29/2018. She was discharged on aspirin, atorvastatin, lisinopril, and ticagrelor. She presented to [facility] 12/07/2018 with increasing chest pain after her [...] her recent stent. She was consulted by customer service cashier Dr. Castaneda during hospital admission with t [...] secondary to DAPT following stents 10/2018 at [facility]. Denies Current nausea, vomiting, abdominal pain and [...] it 12/2018. Current on post 65 pneumonia [facility]. Habits/Social : Denies history of smoking. Denies EtOH use. Drinks no caffeine . Denies r ecreational or illicit drug use. Exercises with walking,but not lately. . Lives in [facility]. Lives alone, , children live in the [...] TESTING AND PROCEDURES-none ECHO Last Echo: 12/07/2018: ([facility]). EF 65%. LV normal in size and [...] low voltage QRS. Ra te 62 bpm, PA 160 ms, QRS 72 ms, QTC 432 ms, tracing personally reviewed by me EKG 09/28/2009: Marked sinus bradycardia, T wave inversions in anterolateral leads, low volt age QRS. Rate 45 bpm, PA 184 ms, QRS 76 ms, QTC 406 ms, tracing reviewed by de EK12/10/2018: Sinus bradycardia, ST and T wave abnormalities anterolateral leads, nonspec ific ST and T wave abnormalities, low voltage QRS. Rate 56 bpm, PA 172 ms, QRS 74 ms, QTC 4 30 ms, tracing personally reviewed by me EK01/22/2019: Sinus bradycardia, nonspecific T wave abnormality with T wave in version V 1, V2, and previous T wave inversions to lateral leads resolved, ongoing low voltage QRS, es pecially leads I, aVL and V1. Rate 57 bpm, PA 170 ms, QRS 72 ms, QTC 430 ms. Personally re viewed by me LABS Labs: 12/07/2018: Lipids:( atorvastatin 40 mg) : Cholesterol 97, triglycerides 104, HDL 41, LDL 35. CMP: Sodium 142, potassium 4.3, chloride 112, CO2 21, glucose 111, BUN 13, creatini ne 0.84, albumin 4.1, total bili 1.1, alk phos 97, AST 24 ALT 22, GFR >60 Labs: 12/09/2018:( [facility]) Thyroid: TSH: 6.78 BMP: Sodium 143, potassium 4.1, chloride 111, gl ucose 109, BUN 17, creatinine 1, GFR 54 . Magnesium : 2.1 iron panel: Iron 32, IBC 338, iro n sat 9%. Ferritin: 29 B12 516. Folate 13.1 hemoglobin 10.5, hematocrit 30.3 Labs: 12/11/2018: ( [facility]) Hemoglobin 9.6, hematocrit 27.5. Labs 01/06/2019: ( [...] controlled , and her labs performed at [facility] in November d shown lipids well controlled [...] one month. 1. Coronary artery disease of [place] artery of [place] heart with stable angina pectoris (HC C) [...] contain inadvertent rec ognition errors. Sofiya STEWART [facility] 01/22/2019 document ed in [...] [address] | | | | | | [place] [address] | | | | | | [phone] | | | | | | | [...] e | 11:03 PDT | disease of [place] | procedure are in the | | | | | artery of [place] | results section. | | | | | heart with stable | | | | | | angina pectoris | | | | | | ([facility]) HYPERTENSION, | | | | | | [...] | | | | | by [facility] Read Only, | | | | | | [facility] ([id number]), | | | | | | technical writer and editor Alessandro Goldberg | | | | | | ([id number]) on 01/22/2019 | | | | | [...] + + | Coronary artery disease of [place] artery of [place] heart with stable angina pectoris | | [...]
--- OUTSIDE RECORDS SUMMARY | ~2019-02-03 | XMS | Clinical Summary ---
Demographics + + + | Address | [address] | | | [place] [address] | + + + | Home Phone | | + + + | Preferred Language | Unknown | + + + | Marital Status | | + + + | Scientology Affiliation | Unknown | + + + | Race | Unknown | + + + | Ethnic Group | Unknown | + + + Author + + + | Author | [facility] (Historical as of | | | 11-15-18) | + + + | Organization | [facility] (Historical as of | | | 11-15-18) [...] Team Providers + +------+ + | Care Painter Airbrush Name | Role | Phone | + [...]
[2019-02-03] MEDS ORDERED: IRON325 M1 PO (09:39)
[2019-02-03] MEDS ORDERED: POTASSIUM CHLO10 ME2 PO (09:39)
[2019-02-03] MEDS ORDERED: VENTOLIN HFA18 GM INH (09:39)
[2019-02-03] MEDS ORDERED: FUROSEMIDE20 MG PO (09:39)
[2019-02-03] MEDS ORDERED: PANTOPRAZOLE SO40 MG PO (09:39)
[2019-02-03] MEDS ORDERED: ISOSORBIDE MON120 MG PO (09:39)
[2019-02-03] MEDS ORDERED: LEVOTHYROXINE50 MCG PO (09:40)
--- NOTE | 2019-02-03 20:23 | EKG ---
[facility] [address] [facility] [place], [place] [address] Signed Sinus bradycardia Nonspecific T wave abnormality Abnormal ECG When compared with ECG of 03-FEB-2019 09:32, (Unconfirmed) No significant change was found Confirmed by USMAN PACHECO DO ([id number]) on 02/03/2019 8:23:34 PM Electronically Signed By: USMAN PACHECO DO 02/03/192022 PATIENT NAME: NISH LAGOS Electrocardiogram DATE OF : 44 PHYSICIAN: USMAN PACHECO DO REPORT #: [id number] REPORT IS CONFIDENTIAL AND NOT TO BE RELEASED WITHOUT AUTHORIZATION
--- NOTE | 2019-02-05 11:21 | EKG ---
[facility] [address] [facility] [place] [address] Signed Sinus bradycardia Nonspecific T wave abnormality Abnormal ECG When compared with ECG of 06-DEC-2018 22:55, Sinus rhythm has replaced Junctional rhythm T wave inversion now evident in Anterior leads Confirmed by USMAN PACHECO DO ([id number]) on 02/05/2019 11:21:30 AM Electronically Signed By: USMAN PACHECO DO 02/05/19 1121 PATIENT NAME: NISH LAGOS Electrocardiogram DATE OF : 44 PHYSICIAN: USMAN PACHECO DO REPORT #: [id number] REPORT IS CONFIDENTIAL AND NOT TO BE RELEASED WITHOUT AUTHORIZATION
== END 2019-02-03 12:28 | disposition short-term general hospital (02) ==
LOC: ED 09:29
DX: I20.0 Unstable angina (principal); J45.909 Unspecified asthma, uncomplicated; E03.9 Hypothyroidism, unspecified; I25.2 Old myocardial infarction; Z88.8 Allergy status to other drugs, medicaments and biological substances; Z79.899 Other long term (current) drug therapy; Z79.82 Long term (current) use of aspirin
CPT/HCPCS: 71045; 80053; 83735; 84484; 85025; 93005; 93010; 96374; 99285-25; J2060

== ENCOUNTER 2020-05-04 15:45 | Emergency (ER) | payer MEDICARE, OTHER ==
[~2020-05-04] VITALS: Ht 154.9 cm; Wt 81.6 kg
[~2020-05-04 15:45] MED LIST changes: +FUROSEMIDE20 MG PO; +IRON325 M1 PO; +ISOSORBIDE MON120 MG PO; +LEVOTHYROXINE50 MCG PO; +PANTOPRAZOLE SO40 MG PO; +POTASSIUM CHLO10 ME2 PO
--- NOTE | 2020-05-04 23:55 | EKG ---
[facility] [address] [facility] [place] [address] Signed Sinus bradycardia Nonspecific T wave abnormality Abnormal ECG When compared with ECG of 03-FEB-2019 10:58, T wave inversion now evident in Lateral leads Confirmed by DIEGO TOMLIN MD ([id number]) on 05/04/2020 11:55:02 PM Electronically Signed By: DIEGO TOMLNI MD 05/04/20 2355 PATIENT NAME: NISH LAGOS Electrocardiogram DATE OF : 44 PHYSICIAN: DIEGO TOMLIN MD REPORT #: [id number] REPORT IS CONFIDENTIAL AND NOT TO BE RELEASED WITHOUT AUTHORIZATION
== END 2020-05-04 18:37 | disposition home or self-care (01) ==
LOC: ED 15:45
DX: I50.9 Heart failure, unspecified (principal); J45.909 Unspecified asthma, uncomplicated; E03.9 Hypothyroidism, unspecified; I25.2 Old myocardial infarction; Z20.822 Contact with and (suspected) exposure to COVID-19; Z79.899 Other long term (current) drug therapy; Z88.8 Allergy status to other drugs, medicaments and biological substances; Z79.82 Long term (current) use of aspirin
CPT/HCPCS: 71045; 80053; 83735; 83880; 84484; 85025; 93005; 93010; 99285-25; C9803; U0003

== ENCOUNTER 2022-12-18 18:11 | Emergency (ER) | payer MEDICARE, OTHER ==
[2022-12-18 18:30] LABS: BASOPHILS 0.7 % (0-2); EOSINOPHILS 1.7 % (0-6); HEMATOCRIT 35.5 % (35.0-50.0); HEMOGLOBIN 12.1 g/dL (12.0-18.0); LYMPHOCYTES 56.3 % (24-44); MCH 33.1 (27-36); MCHC 34.1 g/dl (30-36); MCV 96.9 fl (81-99); MONOCYTES 3.9 % (0-12); NEUTROPHILS 37.4 % (39-80); PLATELET COUNT 192 K/uL (140-440); RBC 3.66 M/ul (4.3-5.7); RDW 14.1 (10.5-15.0)
[2022-12-18 18:55] LABS: ALBUMIN 3.5 g/dL (3.4-5.0); ALBUMIN/GLOBULIN RATIO 1.09 (1.1-2.4); ALCOHOL, MEDICAL <3 ng/dL (<3); ALKALINE PHOSPHATASE 112 U/L (46-116); ALT (SGPT) 35 U/L (14-59); ANION GAP 15.8 (7-21); AST (SGOT) 30 U/L (15-37); BILIRUBIN, TOTAL 0.8 ng/dL (0.2-1.0); BUN/CREATININE RATIO 19.49 (6.0-28.6); CALCIUM 9.1 mg/dL (8.5-10.1); CARBON DIOXIDE 23 mmol/L (21-32); CHLORIDE 105 mmol/L (98-107); CREATININE, SERUM 1.18 mg/dL (0.55-1.02); GLOMERULAR FILTRATION RATE,EST 47 mL/min (>60); POTASSIUM 3.8 mmol/L (3.5-5.1); PROTEIN, TOTAL 6.7 g/dL (6.4-8.2); UREA NITROGEN 23 mg/dL (7-18)
[2022-12-18 19:07] LABS: ABO O; ANTIBODY SCREEN NEGATIVE; RH POSITIVE
[2022-12-18] MEDS ORDERED: HYDROCODON-ACE1 EA10 PO (20:12)
--- NOTE | 2022-12-18 20:35 | EKG ---
[facility] [address] [facility] [place] [address] Signed Normal sinus rhythm ST \T\ T wave abnormality, consider anterior ischemia Abnormal ECG When compared with ECG of 04-MAY-2020 16:06, No significant change was found Confirmed by Desmond Stout MD () on 12/18/2022 8:35:16 PM Electronically Signed By: DESMOND STOUT MD 12/18/222034 PATIENT NAME: MADDISONCLIFFNISH Electrocardiogram DATE OF : 44 PHYSICIAN: DESMOND STOUT MD REPORT #: [id number] REPORT IS CONFIDENTIAL AND NOT TO BE RELEASED WITHOUT AUTHORIZATION
[2022-12-18 21:00] VITALS: BP 156/76
[2022-12-20 13:19] LABS: HIV 1,2 COMBO ANTIGEN/ANTIBODY Negative (Negative)
[2022-12-20 15:51] LABS: HEPATITIS B SURFACE ANTIBODY <3.10 IU/L (())
[2022-12-20 18:17] LABS: HEPATITIS C AB CIA INTERP Negative (Negative); HEPATITIS C ANTIBODY CIA INDEX 0.03 IV (())
== END 2022-12-18 21:00 | disposition home or self-care (01) ==
LOC: ED 18:11
PROVIDERS: Emergency Medicine
DX: S32.019A Unspecified fracture of first lumbar vertebra, initial encounter for closed fracture (principal); S32.029A Unspecified fracture of second lumbar vertebra, initial encounter for closed fracture; S32.039A Unspecified fracture of third lumbar vertebra, initial encounter for closed fracture; S62.111A Displaced fracture of triquetrum [cuneiform] bone, right wrist, initial encounter for closed fracture; S00.12XA Contusion of left eyelid and periocular area, initial encounter; S00.03XA Contusion of scalp, initial encounter; R07.9 Chest pain, unspecified; Z23 Encounter for immunization; W10.9XXA Fall (on) (from) unspecified stairs and steps, initial encounter; Z91.018 Allergy to other foods; Z79.899 Other long term (current) drug therapy; Z79.890 Hormone replacement therapy; Z79.82 Long term (current) use of aspirin
CPT/HCPCS: 36415; 70450; 71045; 71260; 72125; 73110; 73130; 74177; 80053; 85025; 86706; 86803; 86850; 86900; 86901; 90471; 90715; 93005; 93010; 99284-25; A9270; G0480; J1885; J3010; Q9967

== ENCOUNTER 2023-05-20 09:02 | Emergency (ER) | payer MEDICARE, OTHER ==
[~2023-05-20] VITALS: Ht 154.9 cm; Wt 88.6 kg
[~2023-05-20 09:02] MED LIST changes: +HYDROCODON-ACE1 EA10 PO
[2023-05-20] MEDS ORDERED: OXYMETAZOLINE HCL 15 ML BTL NAS ONE (09:15)
[2023-05-20 09:35] LABS: BASOPHILS 0.5 % (0-2); EOSINOPHILS 2.7 % (0-6); HEMATOCRIT 39.9 % (35.0-50.0); HEMOGLOBIN 13.1 g/dL (12.0-18.0); LYMPHOCYTES 60.3 % (24-44); MCH 32.4 (27-36); MCHC 32.9 g/dl (30-36); MCV 98.6 fl (81-99); MONOCYTES 2.4 % (0-12); NEUTROPHILS 34.1 % (39-80); PLATELET COUNT 184 K/uL (140-440); RBC 4.04 M/ul (4.3-5.7); RDW 14.6 (10.5-15.0)
[2023-05-20 09:59] LABS: ALBUMIN 3.3 g/dL (3.4-5.0); ALBUMIN/GLOBULIN RATIO 0.97 (1.1-2.4); ANION GAP 11.8 (7-21); BILIRUBIN, TOTAL 0.8 ng/dL (0.2-1.0); BUN/CREATININE RATIO 15.62 (6.0-28.6); CALCIUM 9.2 mg/dL (8.5-10.1); CREATININE, SERUM 0.96 mg/dL (0.55-1.02); POTASSIUM 3.8 mmol/L (3.5-5.1); PROTEIN, TOTAL 6.7 g/dL (6.4-8.2)
[2023-05-20 11:49] VITALS: BP 142/86
--- NOTE | 2023-05-21 11:17 | EKG ---
[facility] [address] [facility] [place] [address] Signed Normal sinus rhythm Normal ECG When compared with ECG of 18-DEC-2022 18:30, T wave inversion no longer evident in Lateral leads Confirmed by MULUGETA BARAJAS MD ([id number]) on 05/21/2023 11:17:28 AM Electronically Signed By: MULUGETA BARAJAS 05/21/23 1117 PATIENT NAME: MADDISONCLIFFNISH Electrocardiogram DATE OF : 44 PHYSICIAN: MULUGETA BARAJAS REPORT #: [id number] REPORT IS CONFIDENTIAL AND NOT TO BE RELEASED WITHOUT AUTHORIZATION
== END 2023-05-20 11:45 | disposition home or self-care (01) ==
LOC: ED 09:02
PROVIDERS: Emergency Medicine
DX: R04.0 Epistaxis (principal); J45.909 Unspecified asthma, uncomplicated; E03.9 Hypothyroidism, unspecified; I25.2 Old myocardial infarction; Z91.018 Allergy to other foods; Z79.899 Other long term (current) drug therapy; Z79.82 Long term (current) use of aspirin
CPT/HCPCS: 30901; 36415; 80053; 84484; 85025; 93005; 93010; 99284-25; A9270

== ENCOUNTER 2024-01-16 11:39 | Emergency (ER) | payer MEDICARE, OTHER ==
[~2024-01-16] VITALS: Ht 154.9 cm; Wt 79.8 kg
[2024-01-16] MEDS ORDERED: NITROGLYCERIN0.4 MG SL (11:52)
[2024-01-16 12:04] LABS: BASOPHILS 1.1 % (0-2); EOSINOPHILS 1.2 % (0-6); HEMATOCRIT 35.6 % (35.0-50.0); HEMOGLOBIN 11.8 g/dL (12.0-18.0); LYMPHOCYTES 39.7 % (24-44); MCHC 33.3 g/dl (30-36); MCV 90.2 fl (81-99); MONOCYTES 4.6 % (0-12); NEUTROPHILS 53.4 % (39-80); PLATELET COUNT 209 K/uL (140-440); RBC 3.94 M/ul (4.3-5.7); RDW 17.5 (10.5-15.0)
[2024-01-16 12:25] LABS: ALBUMIN 3.8 g/dL (3.4-5.0); ALBUMIN/GLOBULIN RATIO 1.23 (1.1-2.4); BILIRUBIN, TOTAL 0.9 ng/dL (0.2-1.0); BUN/CREATININE RATIO 11.62 (6.0-28.6); CALCIUM 9.9 mg/dL (8.5-10.1); CREATININE, SERUM 1.29 mg/dL (0.55-1.02); PROTEIN, TOTAL 6.9 g/dL (6.4-8.2)
[2024-01-16] MEDS ORDERED: ALPRAZOLAM0.25 MG PO (12:57)
[2024-01-16] MEDS ORDERED: PROZAC10 MG PO (12:57)
[2024-01-16 13:09] VITALS: BP 160/61
--- NOTE | 2024-01-16 21:43 | EKG ---
[facility] [address] [facility] [place] [address] Signed Sinus bradycardia Otherwise normal ECG When compared with ECG of 20-MAY-2023 09:48, No significant change was found Confirmed by Sunday Escalante MD ([id number]) on 01/16/2024 9:43:27 PM Electronically Signed By: SUNDAY ESCALANTE DO 01/16/242142 PATIENT NAME: NISH LAGOS Electrocardiogram DATE OF : 44 PHYSICIAN: SUNDAY ESCALANTE DO REPORT #: [id number] REPORT IS CONFIDENTIAL AND NOT TO BE RELEASED WITHOUT AUTHORIZATION
== END 2024-01-16 13:05 | disposition home or self-care (01) ==
LOC: ED 11:39
PROVIDERS: Emergency Medicine
DX: R07.89 Other chest pain (principal); J45.909 Unspecified asthma, uncomplicated; I25.2 Old myocardial infarction; E03.9 Hypothyroidism, unspecified; Z88.5 Allergy status to narcotic agent; Z88.8 Allergy status to other drugs, medicaments and biological substances; Z79.899 Other long term (current) drug therapy; Z79.890 Hormone replacement therapy; Z79.82 Long term (current) use of aspirin
CPT/HCPCS: 36415; 71045; 80053; 83880; 84484; 85025; 85379; 93005; 93010; 99285-25

== ENCOUNTER 2024-08-08 18:03 | Emergency (ER) | payer MEDICARE, OTHER ==
[~2024-08-08] VITALS: Ht 154.9 cm; Wt 78.0 kg
[~2024-08-08 18:03] MED LIST changes: +ALPRAZOLAM0.25 MG PO; +PROZAC10 MG PO
[2024-08-08 18:51] LABS: BASOPHILS 0.6 % (0-2); HEMATOCRIT 25.8 % (35.0-50.0); HEMOGLOBIN 8.4 g/dL (12.0-18.0); LYMPHOCYTES 45.7 % (24-44); MCH 27.3 (27-36); MCHC 32.6 g/dl (30-36); MCV 83.6 fl (81-99); NEUTROPHILS 47.7 % (39-80); PLATELET COUNT 239 K/uL (140-440); RBC 3.08 M/ul (4.3-5.7); RDW 15.9 (10.5-15.0)
[2024-08-08 19:15] LABS: ALBUMIN 3.1 g/dL (3.4-5.0); ALBUMIN/GLOBULIN RATIO 0.94 (1.1-2.4); ANION GAP 12.7 (7-21); BILIRUBIN, TOTAL 0.6 mg/dL (0.2-1.0); BUN/CREATININE RATIO 15.04 (6.0-28.6); CALCIUM 8.8 mg/dL (8.5-10.1); CREATININE, SERUM 1.13 mg/dL (0.55-1.02); MAGNESIUM 1.8 mg/dL (1.8-2.4); POTASSIUM 3.7 mmol/L (3.5-5.1); PROTEIN, TOTAL 6.4 g/dL (6.4-8.2)
[2024-08-08] MEDS ORDERED: LACTATED RINGER'S 1,000 ML IV ONE (20:45)
[2024-08-08] MEDS ORDERED: hydrOXYzine pamoate 25 MG CAP PO ONE (20:45)
[2024-08-08 22:43] LABS: BILIRUBIN, URINE NEGATIVE (negative); BLOOD/HGB, URINE SMALL (Negative); KETONE, URINE TRACE (Negative); LEUK ESTERASE, URINE SMALL (negative); NITRITE, URINE NEGATIVE (negative); PH, URINE 6.5 (5-7)
[2024-08-08 22:52] LABS: BACTERIA, URINE 2+ /hpf (negative); EPITHELIAL CELLS, URINE SQUAMOUS 2+ /lpf (0-1+)
[2024-08-08 22:53] LABS: CASTS, URINE NONE SEEN \\lpf; COLLECTION TYPE, URINE CLEAN CATCH; CRYSTALS, URINE NONE SEEN (0-1+)
[2024-08-08 22:54] LABS: RED BLOOD CELLS, URINE >50 /hpf (0-5)
[2024-08-08 22:55] LABS: REFLEX CULTURE, URINE No (No)
[2024-08-08 23:35] VITALS: BP 133/52
--- NOTE | 2024-08-09 20:52 | EKG ---
[facility] [address] [facility] [place] [address] Signed Sinus rhythm with premature atrial complexes Nonspecific ST and T wave abnormality Abnormal ECG When compared with ECG of 16-JAN-2024 11:45, premature atrial complexes are now present Vent. rate has increased BY 30 BPM Nonspecific T wave abnormality, worse in Anterior leads Confirmed by Desmond Stout MD () on 08/09/2024 8:52:50 PM Electronically Signed By: DESMOND STOUT MD 08/09/242051 PATIENT NAME: DEMONDNISH RUBALCAVA Electrocardiogram DATE OF : 44 PHYSICIAN: DESMOND STOUT MD REPORT #: [id number] REPORT IS CONFIDENTIAL AND NOT TO BE RELEASED WITHOUT AUTHORIZATION
== END 2024-08-08 23:39 | disposition home or self-care (01) ==
LOC: ED 18:03
PROVIDERS: Emergency Medicine; Internal Medicine
DX: E86.0 Dehydration (principal); R07.9 Chest pain, unspecified; J45.909 Unspecified asthma, uncomplicated; I25.2 Old myocardial infarction; Z79.2 Long term (current) use of antibiotics; Z79.891 Long term (current) use of opiate analgesic; Z79.899 Other long term (current) drug therapy
CPT/HCPCS: 36415; 71045; 80053; 81001; 83735; 83880; 84484; 85025; 93005; 93010; 99285-25; J7121